=== PATIENT | female | born 1970 | race Caucasian/White ===

== ENCOUNTER 2018-10-05 14:22 | Emergency (ER) | payer OTHER, SELFPAY ==
[~2018-10-05] VITALS: Ht 152.4 cm; Wt 60.0 kg
[2018-10-05 14:22] VITALS: BP 126/56
[2018-10-05] MEDS ORDERED: ALLE180T33 PO (14:44)
[2018-10-05 17:00] LABS: BASO # 0.1 10^3/uL (0.0-0.2); BASO % 0.6 % (0.0-1.0); EOS # 0.3 10^3/uL (0.0-0.50); EOS % 2.5 % (0.0-3.0); HEMOGLOBIN 15.1 g/dl (12.0-15.5); LYMPH # 3.6 10^3/uL (1.5-4.5); LYMPH % 36.1 % (24.0-44.0); MEAN CORPUSCULAR HEMOGLOBIN 33.3 pg (27.0-33.0); MEAN CORPUSCULAR HGB CONC 33.6 g/dl (32.0-36.5); MEAN CORPUSCULAR VOLUME 99.1 fl (80.0-96.0); MONO # 0.8 10^3/uL (0.0-0.8); MONO % 7.5 % (0.0-5.0); NEUTROPHILS # 5.3 10^3/uL (1.8-7.7); NEUTROPHILS % 52.9 % (36.0-66.0); PLATELET COUNT, AUTOMATED 263 10^3/uL (150-450); RED BLOOD COUNT 4.54 10^6/uL (4.00-5.40); WHITE BLOOD COUNT 9.9 10^3/uL (4.0-10.0)
[2018-10-05 17:08] LABS: ALBUMIN 4.1 GM/DL (3.2-5.2); ALT/SGPT 35 U/L (12-78); BILIRUBIN,DIRECT 0.1 MG/DL (0.0-0.2); BILIRUBIN,TOTAL 0.3 MG/DL (0.2-1.0); BLOOD UREA NITROGEN 13 MG/DL (7-18); CALCIUM LEVEL 9.5 MG/DL (8.5-10.1); CARBON DIOXIDE LEVEL 30 MEQ/L (21-32); CHLORIDE LEVEL 108 MEQ/L (98-107); CREATININE FOR GFR 0.82 MG/DL (0.55-1.30); GLOMERULAR FILTRATION RATE > 60.0 (>58); GLUCOSE, FASTING 80 MG/DL (70-100); LIPASE 115 U/L (73-393); SODIUM LEVEL 144 MEQ/L (136-145); TOTAL PROTEIN 7.3 GM/DL (6.4-8.2)
== END 2018-10-05 18:00 | disposition home or self-care (01) ==
LOC: M ED 14:22
DX: M94.0 Chondrocostal junction syndrome [Tietze] (principal); B34.9 Viral infection, unspecified; K21.9 Gastro-esophageal reflux disease without esophagitis; J45.909 Unspecified asthma, uncomplicated; F17.200 Nicotine dependence, unspecified, uncomplicated; Z91.041 Radiographic dye allergy status; Z88.0 Allergy status to penicillin; Z88.8 Allergy status to other drugs, medicaments and biological substances; Z88.3 Allergy status to other anti-infective agents; Z79.899 Other long term (current) drug therapy

== ENCOUNTER → 2019-06-07 | Outpatient (CLI) | payer SELFPAY ==
[~2019-06-07] MED LIST: ALLE180T33 PO
== END ==
LOC: M LABSMTC 11:59
PROVIDERS: ATTEND Family Medicine
DX: Z11.59 Encounter for screening for other viral diseases (principal); Z20.89 Contact with and (suspected) exposure to other communicable diseases

== ENCOUNTER 2019-07-12 12:21 | Inpatient (IN) | payer SELFPAY ==
[~2019-07-12] VITALS: Ht 152.4 cm; Wt 62.3 kg
--- NOTE | 2019-07-12 13:32 | REP ---
CT brain without contrast: History: Altered mental status. History of shunt. Comparison CT study of the brain is from May 20, 2007. Findings: Preliminary digital financial consultant radiograph and CT images demonstrate a right-sided ventriculostomy catheter in place. Its internal tip is is seen in the frontal horn of the right lateral ventricle. No other bony calvarial defect is seen. Visualized paranasal sinuses are clear. The lateral, third, fourth ventricles are normal in size and position unchanged from the CT study done in 2007. There is no evidence of hydrocephalous. No extra-axial fluid collection or intracranial hemorrhage is seen. No mass, infarction, or midline shift is seen. Impression: Right-sided ventriculostomy catheter in the frontal horn of the right lateral ventricle. No evidence of hydrocephalous. Otherwise negative noncontrast head CT. Electronically Signed by Oliver Adams MD 07/12/2019 01:24 P
[2019-07-12 13:33] LABS: AMPHETAMINES LEVEL URINE NEGATIVE (NEGATIVE); BARBITURATES URINE NEGATIVE (NEGATIVE); BENZODIAZEPINES URINE NEGATIVE (NEGATIVE); CANNABINOIDS URINE NEGATIVE (NEGATIVE); COCAINE METABOLITE URINE NEGATIVE (NEGATIVE); METHADONE URINE NEGATIVE (NEGATIVE); OPIATES URINE NEGATIVE (NEGATIVE); PHENCYCLIDINE URINE NEGATIVE (NEGATIVE)
[2019-07-12 13:45] LABS: ACETAMINOPHEN LEVEL < 2.0 UG/ML (10.0-30.0); ALBUMIN 4.3 GM/DL (3.2-5.2); ALT/SGPT 35 U/L (12-78); BILIRUBIN,DIRECT 0.1 MG/DL (0.0-0.2); BILIRUBIN,TOTAL 0.4 MG/DL (0.2-1.0); BLOOD UREA NITROGEN 11 MG/DL (7-18); CALCIUM LEVEL 8.9 MG/DL (8.5-10.1); CARBON DIOXIDE LEVEL 27 MEQ/L (21-32); CHLORIDE LEVEL 109 MEQ/L (98-107); CREATININE FOR GFR 0.73 MG/DL (0.55-1.30); ETHYL ALCOHOL (ETHANOL) < 0.003 % (0.000-0.010); GLOMERULAR FILTRATION RATE > 60.0 (>58); GLUCOSE, FASTING 98 MG/DL (70-100); POTASSIUM SERUM 4.3 MEQ/L (3.5-5.1); SALICYLATE LEVEL 2.8 MG/DL (5.0-30.0); SODIUM LEVEL 143 MEQ/L (136-145); TOTAL PROTEIN 7.6 GM/DL (6.4-8.2)
[2019-07-12] MEDS ORDERED: OLANZapine ORAL DISINTEGRATING TAB 5MG PO ONE (14:00)
[2019-07-12 14:21] LABS: HEMATOCRIT 46.7 % (36.0-47.0); HEMOGLOBIN 15.9 g/dl (12.0-15.5); MEAN CORPUSCULAR HEMOGLOBIN 32.5 pg (27.0-33.0); MEAN CORPUSCULAR VOLUME 95.5 fl (80.0-96.0); PLATELET COUNT, AUTOMATED 302 10^3/uL (150-450); RED BLOOD COUNT 4.89 10^6/uL (4.00-5.40); WHITE BLOOD COUNT 8.4 10^3/uL (4.0-10.0)
--- NOTE | 2019-07-12 14:28 | REP ---
SHUNT SERIES: Five views. HISTORY: Altered mental status. FINDINGS: A right-sided ventriculostomy shunt catheter is noted in place intracranially. Intact catheter is noted coursing over the precordial soft tissues and entering the right upper quadrant of the abdomen. There is some mineral deposition around the catheter in the subclavicular region and in the scalp adjacent to the reservoir. The catheter itself does not appear interrupted or fracture. IMPRESSION: Right ventriculoperitoneal shunt catheter appears intact. Electronically Signed by Oliver Adams MD 07/12/2019 04:16 P
[2019-07-12] MEDS ORDERED: MOM 30ML SUSPENSION UDC PO PRN (17:45)
[2019-07-12] MEDS ORDERED: MAALOX 30 ML SUSP *UDC PO PRN (17:45)
[2019-07-12 20:37] VITALS: BP 111/56
[2019-07-13 06:00] VITALS: BP 108/63
--- NOTE | 2019-07-13 09:12 | MHHPEPDOC ---
[facility] History & Physical History and Physical DATE OF ADMISSION: July 12, 2019 at 17:35 New Patient Racheal Shoemaker MRN: N/A Date of : N/A Date of Service: 07/13/2019 Chief Complaint "I got really confused." History of Present Illness The patient a 49-year-old woman with a history of psychosis presents reporting increasing bizarre thoughts and depression with suicidal thoughts. She had become increasingly more depressed and suicidal and was brought in after becoming more psychotic. She had been previously admitted in 2007, place on antipsychotic, but stopped this and had been in her normal state of health until several days prior. She reports she began to feel like she was outside her body and having unusual behavior. CT scan in the ER demonstrate no signs of neurological cause as she has a shunt in her brain from 30 years ago. The patient reports that she became increasingly more depressed and suicidal, but has no auditory hallucinations. Review Of Systems Depression: As above with loss of interest, fatigue. Anxiety: Psychosis-related anxiety. Berta: The patient denies any episodes of euphoria/dysphoria associated with decreased need for sleep, hedonism, talkatively or impulsivity lasting longer than 5 days. Psychotic: As above. Trauma: The patient denies any traumatic events associated with nightmares or intrusive thoughts. Borderline: Not screened. Past Psychiatric History Last admitted in 2007 for psychosis. No history of suicide attempts. Previously placed on an unknown antipsychotic. Allergies Please see below. Family Psychiatric History Has a history of bipolar in the family. Social History The patient was born in [place], normal childhood, no abuse. Reports that she has several children who are adults. She has been in a fairly steady state of relationships. No known legal or history. Substance Abuse History Negative toxicology. Medical History Has a history of a right brain shunt. Mental Status Examination General: Well dressed with good hygiene Speech: Spontaneous and fluid Thought processes: Linear and logical MSK: Smooth and coordinated gait, no signs of tremors or involuntary orofacial movements Thought content: Paranoid. Abstract reasoning, and computation: Impaired. Description of associations: Impaired. Description of abnormal or psychotic thoughts: Denies any suicidal or homicidal ideation. Denies any auditory or visual hallucinations. Does not appear to be responding to internal stimuli. Does not appear to be endorsing any bizarre or paranoid ideation. Judgment: fair Insight: fair Orientation: Alert and orientated 3 Cognition: Grossly normal Recent and remote memory: Intact Attention span and concentration: Intact Fund of knowledge: Adequate Mood: "okay" Affect: Somewhat with a constricted range. Diagnoses Unspecified depressive disorder. 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 Unspecified psychotic disorder. As above. Assessment and Plan Unspecified depressive/psychotic : We will attempt to try sertraline 25 mg daily, could be MDD with psychotic features as would be consistent with patient's delusional state and significant mood symptoms. The risks, benefits as well as common side effects as well as alternative treatments (including non-treatment) were discussed with the patient both in general and for their particular case. The patient selected this option out of a range. Disposition Patient will need to be retained as she is still quite depressed and dilutional at times. Problem List 1. Altered thoughts. 2. Risk for suicide. Initial Treatment Plan 1. Patient was admitted on a legal status. 2. Complete history was obtained. 3. With patients permission, family will be contacted and database will be expanded. 4. Patients medication regimen will be reviewed and changed accordingly. 5. Patient will be provided with protected environment. 6. Patient will be treated with individual, group, and milieu therapies. 7. Patient will receive supportive psych-education. 8. Discharge planning will commence immediately. 9. Outpatient follow-up treatment will be strongly recommended. 10. The initial treatment plan will focus initially on: Estimated Length Of Stay 4 days. Time Spent 70 minutes with greater than 50% of time spent on counseling/coordination of care. Tuesday Vital Signs Vital Signs Date Time Temp Pulse Resp B/P (MAP) Pulse Ox O2 Delivery O2 Flow Rate FiO2 07/13/19 06:00 97.2 70 16 108/63 (78) 97 Room Air Laboratory Data 24H Labs Laboratory Tests 2 07/12/19 12:55: Nucleated Red Blood Cells % (auto) 0.0, Anion Gap 7L, Glomerular Filtration Rate > 60.0, Calcium Level 8.9, Total Bilirubin 0.4, Direct Bilirubin 0.1, Aspartate Amino Transf (AST/SGOT) 16, Alanine Aminotransferase (ALT/SGPT) 35, Alkaline Phosphatase 57, Total Protein 7.6, Albumin 4.3, Albumin/Globulin Ratio 1.3, Thyroid Stimulating Hormone (TSH) 2.700, Salicylates Level 2.8L, Urine Opiates Screen NEGATIVE, Urine Methadone Screen NEGATIVE, Acetaminophen Level < 2.0L, Urine Barbiturates Screen NEGATIVE, Urine Phencyclidine Screen NEGATIVE, Urine Amphetamines Screen NEGATIVE, Urine Benzodiazepines Screen NEGATIVE, Urine Cocaine Metabolite Screen NEGATIVE, Urine Cannabinoids Screen NEGATIVE, Ethyl Alcohol Level < 0.003 CBC/BMP Laboratory Tests 07/12/19 12:55 Medications No Active Prescriptions or Reported Meds Allergies Coded Allergies: metronidazole (Verified Allergy, Severe, tongue swelling, throat tightness, 10/05/18) Sulfa (Sulfonamide Antibiotics) (Verified Allergy, Intermediate, hives, 10/05/18) Contrast Media (Verified Allergy, Unknown, 05/21/07) Penicillins (Verified Allergy, Unknown, 10/05/18) metoclopramide (Verified Allergy, Unknown, 10/05/18) prochlorperazine (Verified Allergy, Unknown, 10/05/18) BASILIO YUN DO July 13, 2019 09:12
[2019-07-13] MEDS ORDERED: SERTRALINE HCL 25 MG TABLET PO ONE (11:30)
[2019-07-13] MEDS: NICOTINE 21MG/24HR 1 EA TRANSDERMAL TD SCH (12:20)
--- NOTE | 2019-07-13 12:44 | HPEPDOC ---
General Date of Admission July 12, 2019 at 17:35 Date of Service: July 13, 2019 Chief Complaint The patient is a 49-year-old female admitted with a reason for visit of Unspecified Psychotic Disorder. Source: Patient Exam Limitations: No limitations Timing/Duration: Other (unknown) Severity: Other (, not applicable) Associated Symptoms: Other (not applicable) History of Present Illness 49 years old female with past medical history of psych problems, history of hydrocephalus resident in ED with chief complaints of generalized not feeling well. Delusional feels like she has even less. Inside her and as per patient hasn't happened in the past but is overwhelming her and she needs help. Patient is not suicidal, homicidal and does not offer any medical complaints Home Medications No Active Prescriptions or Reported Meds Allergies Coded Allergies: metronidazole (Verified Allergy, Severe, tongue swelling, throat tightnes s, 10/05/18) Sulfa (Sulfonamide Antibiotics) (Verified Allergy, Intermediate, hives, 10/05/18) Contrast Media (Verified Allergy, Unknown, 05/21/07) Penicillins (Verified Allergy, Unknown, 10/05/18) metoclopramide (Verified Allergy, Unknown, 10/05/18) prochlorperazine (Verified Allergy, Unknown, 10/05/18) Past Medical History Medical History Hydrocephalus Surgical History Tubal ligation, laparotomy and shunt for hydrocephalus Family History Family history reviewed. No history of diabetes or cancer Social History * Smoker: Denies Alcohol: Denies Drugs: denies A-FIB/CHADSVASC A-FIB History Current/History of A-Fib/PAF?: No Review of Systems Constitutional: Denies: Chills, Fever, Malaise, Night Sweats, Weakness, Fatigue, Weight Loss, Lethargy, Other Eyes: Denies: Pain, Vision change, Conjunctivae inflammation, Eyelid inflammation, Redness, Other ENT: Denies: Head Aches, Ear Pain, Dysphagia, Sinus Congestion, Post Nasal Drip, Sore Throat, Epistaxis, Other Symptoms Skin: Denies: Rash, Lesions, Jaundice, Bruising, Itching, Dry, Breakdown, Nail Changes, Other Pulmonary: Denies: Dyspnea, Cough, Pleuritic Chest Pain, Other Symptoms Cardiovascular: Denies: Chest Pain, Palpitations, Orthopnea, Paroxysmal Noc. Dyspnea, Edema, Lt Headedness, Other Symptoms Gastrointestinal: Denies: Nausea, Vomiting, Abdominal Pain, Diarrhea, Constipation, Melena, Hematochezia, Other Symptoms Genitourinary: Denies: Dysuria, Frequency, Incontinence, Hematuria, Retention, Other Symptoms Hematologic: Denies: Bruising, Bleeding Excessively, Petecchia, Purpura, Enlarged Lymph Nodes, Other Hematologic Endocrine: Denies: Polydipsia, Polyphagia, Polyuria, Heat Intolerance, Cold Intolerance, Other Endocrine Sx Musculoskeletal: Denies: Neck Pain, Back Pain, Shoulder Pain, Arm Pain, Hand Pain, Leg Pain, Foot Pain, Joint Pain, Muscle Pain, Spasms, Other Symptoms Neurological: Denies: Weakness, Numbness, Incoordination, Change in speech, Confusion, Seizures, Other Symptoms Psych: Reports: Other Psych (. Delusional) Physical Examination General Exam: Positive: Alert, Cooperative Eye Exam: Positive: PERRLA, Conjunctiva & lids normal ENT Exam: Positive: Atraumatic Neck Exam: Positive: Supple Chest Exam: Positive: Clear to auscultation, Normal air movement Heart Exam: Positive: Rate Normal, Normal S1, Normal S2 Abdomen Exam: Positive: Normal bowel sounds, Soft Extremity Exam: Positive: Normal pulses Skin Exam: Positive: Nl turgor and temperature Neuro Exam: Positive: Strength at 5/5 X4 ext, Sensation Intact, Cranial Nerves 3-12 NL Psych Exam: Positive: Mental status NL, Mood NL Vital Signs Vital Signs Date Time Temp Pulse Resp B/P (MAP) Pulse Ox O2 Delivery O2 Flow Rate FiO2 07/13/19 06:00 97.2 70 16 108/63 (78) 97 Room Air Laboratory Data Labs 24H Laboratory Tests 2 07/12/19 12:55: Nucleated Red Blood Cells % (auto) 0.0, Anion Gap 7L, Glomerular Filtration Rate > 60.0, Calcium Level 8.9, Total Bilirubin 0.4, Direct Bilirubin 0.1, Aspartate Amino Transf (AST/SGOT) 16, Alanine Aminotransferase (ALT/SGPT) 35, Alkaline Phosphatase 57, Total Protein 7.6, Albumin 4.3, Albumin/Globulin Ratio 1.3, Thyroid Stimulating Hormone (TSH) 2.700, Salicylates Level 2.8L, Urine Opiates Screen NEGATIVE, Urine Methadone Screen NEGATIVE, Acetaminophen Level < 2.0L, Urine Barbiturates Screen NEGATIVE, Urine Phencyclidine Screen NEGATIVE, Urine Amphetamines Screen NEGATIVE, Urine Benzodiazepines Screen NEGATIVE, Urine Cocai ne Metabolite Screen NEGATIVE, Urine Cannabinoids Screen NEGATIVE, Ethyl Alcohol Level < 0.003 CBC/BMP Laboratory Tests 07/12/19 12:55 Problems (1) Psychosis Status: Chronic Problem Text: Patient admitted to inpatient mental health unit for further care Individual and group counseling, as per psychiatry Pharmacological intervention as per psychiatry No active medical conditions noted at the present time , No further workup is indicated at this time Please call as needed (2) Hydrocephalus Status: Acute Problem Text: Stable Continue home meds Plan / VTE VTE Prophylaxis Ordered?: No VTE Exclusion Mechanical Proph: Low Risk for VTE VTE Exclusion Pharmacological: At Low Risk for VTE SARABJIT SYLVESTER MD July 13, 2019 12:44
[2019-07-13 16:02] VITALS: BP 134/63
[2019-07-14 07:10] VITALS: BP 130/75
[2019-07-14] MEDS: NICOTINE 21MG/24HR 1 EA TRANSDERMAL TD SCH (08:33)
[2019-07-14] MEDS: SERTRALINE HCL 25 MG TABLET PO SCH (08:33)
[2019-07-14 16:13] VITALS: BP 111/74
[2019-07-14] MEDS: traZODone 50 MG TAB PO PRN (21:24)
[2019-07-15 06:25] VITALS: BP 103/52
[2019-07-15] MEDS: ACETAMINOPHEN TAB 650MG DOSE (2X325MG) PO PRN ×2 (06:41→20:44)
[2019-07-15] MEDS: NICOTINE 21MG/24HR 1 EA TRANSDERMAL TD SCH (08:26)
[2019-07-15] MEDS: SERTRALINE HCL 25 MG TABLET PO SCH (08:26)
[2019-07-15] MEDS: NICOTINE 14 MG/24 HR TRANSDERMAL TD SCH (09:18)
--- NOTE | 2019-07-15 09:41 | MHIPN ---
DATE OF SERVICE: 07/14/2019 The patient today tells me "I'm doing better." She says that she does feel that she does feel more depressed as the day wears on and says she is wondering if medication is working or not. She states that did not sleep good. She was not aware that she has trazodone available and she can request but advised her to ask for trazodone tonight. The patient is alert, oriented times three. Eye contact is fairly good. There is no formal thought disorder noted. She is better but she admits she starts feeling depressed as the day goes on. Affect is appropriate to mood. She is not suicidal or homicidal. I did not elicit any delusions in this patient. Concentration is fair. Memory intact. Insight and judgment is fair. DIAGNOSIS: Unspecified depressive disorder. Unspecified psychotic disorder. Rule out major depressive disorder with psychotic symptoms. TREATMENT PLAN: At this point, we will continue to monitor the patient for continued elevation and stabilization of her mood and resolution of psychotic symptoms, and we will continue to titrate her medications as indicated.
[2019-07-15 16:06] VITALS: BP 104/66
[2019-07-15] MEDS: traZODone 50 MG TAB PO PRN (21:47)
[2019-07-15] MEDS: IBUPROFEN 600 MG TAB PO PRN (22:09)
[2019-07-16 06:37] VITALS: BP 115/71
[2019-07-16] MEDS: SERTRALINE HCL 25 MG TABLET PO SCH (09:17)
[2019-07-16] MEDS: NICOTINE 14 MG/24 HR TRANSDERMAL TD SCH (09:18)
[2019-07-16] MEDS: IBUPROFEN 600 MG TAB PO PRN (09:19)
--- NOTE | 2019-07-16 11:48 | MHDSPDOC ---
[facility] Discharge Summary Discharge Summary DATE OF ADMISSION: July 12, 2019 at 17:35 DATE OF DISCHARGE: 07/16/2019 Discharge Racheal Shoemaker MRN: N/A Date of : N/A Date of Service: 07/16/2019 Diagnoses Unspecified depressive disorder. 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 Unspecified psychotic disorder. History of Present Illness The patient a 49-year-old woman with a history of psychosis presents reporting increasing bizarre thoughts and depression with suicidal thoughts. She had become increasingly more depressed and suicidal and was brought in after becoming more psychotic. She had been previously admitted in 2007, place on antipsychotic, but stopped this and had been in her normal state of health until several days prior. She reports she began to feel like she was outside her body and having unusual behavior. CT scan in the ER demonstrate no signs of neurological cause as she has a shunt in her brain from 30 years ago. The patient reports that she became increasingly more depressed and suicidal, but has no auditory hallucinations. Consultants Involved Hospitalist/PCP screening Treatment and Progress On The Unit The patient was admitted to the inpatient mental health unit. She was started on a low-dose Zoloft as there was a suspicion that she might have a psychotic depression. She did well with the Zoloft, increasing her mood and her delusions and paranoia rapidly resolved. She had no major behavioral problems complied with treatment and suicidal ideation became scarce, no longer apparent over the weekend. She was discharged without incident at her request. Discharge Assessment 49 -year-old woman with likely major depression with psychotic features, presents and is treated with a low dose of an appropriate antidepressant making great improvements returning to a normal mental status exam. The patient at the time of discharge did not meet criteria for involuntary admission/extension due to having a normal mental status exam, fair insight into the situation, They are engaged in the discharge process, as well as being friendly and amenable in behavioral control and havent been engaging in any observed concerning behavior or ideation recently. They decline voluntary extension/admission at this time and must be discharged in good rayray, as Im unable to make a case for holding the patient against their will. They may have historical risk factors of admissions and other interactions with psychiatry however, those are not modifiable from a clinical perspective. The patient will need to be discharged in good rayray. Mental Status Examination General: Well dressed with good hygiene Speech: Spontaneous and fluid Thought processes: Linear and logical MSK: Smooth and coordinated gait, no signs of tremors or involuntary orofacial movements Thought content: Future orientated Abstract reasoning, and computation: Intact Description of associations: Intact Description of abnormal or psychotic thoughts: Denies any suicidal or homicidal ideation. Denies any auditory or visual hallucinations. Does not appear to be responding to internal stimuli. Does not appear to be endorsing any bizarre or paranoid ideation. Judgment: fair Insight: fair Orientation: Alert and orientated 3 Cognition: Grossly normal Recent and remote memory: Intact Attention span and concentration: Intact Fund of knowledge: Adequate Mood: "okay" Affect: Euthymic with a full range Follow Up The social work team worked during the predischarge meeting in order to evaluate for further issues of lethality address them fully before discharge. They worked on safety planning with the patient's family members in order to ensure that the patient will have a safe and effective discharge. Time Spent The amount of time spent in the coordination of care for this patient was ap proximately 45 minutes. Tuesday Vital Signs/I&Os Vital Signs Date Time Temp Pulse Resp B/P (MAP) Pulse Ox O2 Delivery O2 Flow Rate FiO2 07/16/19 06:37 99.0 83 12 115/71 (86) Room Air 07/14/19 07:10 98 Medications Scheduled Nicotine (Nicotine Patch) 14 Mg Patch.td24, 1 PATCH TD DAILY for tobacco for 30 Days, #30 Sertraline HCl (Sertraline HCl) 25 Mg Tablet, 25 MG PO DAILY for mood for 7 Days, #7 Scheduled PRN Trazodone HCl (Trazodone HCl) 50 Mg Tablet, 50 MG PO QHSP PRN for INSOMNIA for 7 Days, #7 Allergies Coded Allergies: metronidazole (Verified Allergy, Severe, tongue swelling, throat tightness, 10/05/18) Sulfa (Sulfonamide Antibiotics) (Verified Allergy, Intermediate, hives, 10/05/18) Contrast Media (Verified Allergy, Unknown, 05/21/07) Penicillins (Verified Allergy, Unknown, 10/05/18) metoclopramide (Verified Allergy, Unknown, 10/05/18) prochlorperazine (Verified Allergy, Unknown, 10/05/18) BASILIO YUN DO July 16, 2019 11:48
[2019-07-16] MEDS ORDERED: NICO14PA TD (11:49)
[2019-07-16] MEDS ORDERED: TRAZ-252 PO (11:49)
[2019-07-16] MEDS ORDERED: SERT25TA21 PO (11:49)
[2019-07-16 15:39] VITALS: BP 126/55
--- NOTE | 2019-07-16 22:37 | MHIPN ---
DATE: 07/15/2019 The patient today states, "I'm doing much better." She says she has a more positive outlook. She says that she slept better than she had ever slept in 2 months now. MENTAL STATUS EXAM: The patient is alert, oriented times three. Eye contact is very good. She is verbally spontaneous and no formal thought disorder noted. Her mood is "much better." Affect appropriate to her mood. I did not elicit any psychotic symptoms. She denies any suicidal or homicidal ideations. Concentration is fair. Memory intact. Insight and judgment fair. DIAGNOSIS: Bipolar disorder with psychotic symptoms. TREATMENT PLAN: We will continue to monitor the patient for resolution of psychotic symptoms and stabilization of her mood, and for resolution of her suicidal ideation. We will continue to titrate her medications as indicated.
== END 2019-07-16 16:50 | disposition home or self-care (01) | DRG 751 ==
LOC: M ED 12:21 → M ED INP 17:35 → M PSY 20:15
PROVIDERS: ADMIT Psychiatry & Neurology Addiction Medicine; ATTEND Psychiatry & Neurology Addiction Medicine
DX: F32.3 Major depressive disorder, single episode, severe with psychotic features (principal); R45.851 Suicidal ideations; Z98.2 Presence of cerebrospinal fluid drainage device

== ENCOUNTER 2019-11-26 07:58 | Emergency (ER) | payer MEDICAID, OTHER ==
[~2019-11-26] VITALS: Ht 152.4 cm; Wt 52.7 kg
[~2019-11-26 07:58] MED LIST changes: +NICO14PA TD; +SERT25TA21 PO; +TRAZ-252 PO
[2019-11-26] MEDS ORDERED: ALBU8.5H (08:09)
[2019-11-26 09:37] VITALS: BP 126/79
== END 2019-11-26 09:39 | disposition home or self-care (01) ==
LOC: M ED 07:58
DX: F33.9 Major depressive disorder, recurrent, unspecified (principal); F10.10 Alcohol abuse, uncomplicated; Z88.0 Allergy status to penicillin; Z88.2 Allergy status to sulfonamides; Z88.8 Allergy status to other drugs, medicaments and biological substances; Z79.899 Other long term (current) drug therapy

== ENCOUNTER 2020-01-03 14:02 | Emergency (ER) | payer OTHER ==
[~2020-01-03] VITALS: Ht 152.4 cm; Wt 50.5 kg
[~2020-01-03 14:02] MED LIST changes: +ALBU8.5H
[2020-01-03 14:03] VITALS: BP 152/92
--- NOTE | 2020-01-03 14:15 | ED PDOC ---
Post-Departure Follow-Up went to see patient and notified patient left because would not be allow ed back Lynette Heller MD Jan 03, 2020 14:15
== END 2020-01-03 14:14 | disposition left against medical advice (07) ==
LOC: M ED 14:02
DX: Z53.21 Procedure and treatment not carried out due to patient leaving prior to being seen by health care provider (principal)

== ENCOUNTER 2020-01-08 12:29 | Inpatient (IN) | payer OTHER ==
[~2020-01-08] VITALS: Ht 152.4 cm; Wt 51.4 kg
[2020-01-08 13:40] LABS: HEMATOCRIT 41.3 % (36.0-47.0); HEMOGLOBIN 13.5 g/dl (12.0-15.5); MEAN CORPUSCULAR HEMOGLOBIN 30.4 pg (27.0-33.0); MEAN CORPUSCULAR HGB CONC 32.7 g/dl (32.0-36.5); PLATELET COUNT, AUTOMATED 276 10^3/uL (150-450); RED BLOOD COUNT 4.44 10^6/uL (4.00-5.40); WHITE BLOOD COUNT 8.1 10^3/uL (4.0-10.0)
[2020-01-08 14:08] LABS: AMPHETAMINES LEVEL URINE NEGATIVE (NEGATIVE); BARBITURATES URINE NEGATIVE (NEGATIVE); BENZODIAZEPINES URINE NEGATIVE (NEGATIVE); CANNABINOIDS URINE NEGATIVE (NEGATIVE); COCAINE METABOLITE URINE NEGATIVE (NEGATIVE); METHADONE URINE NEGATIVE (NEGATIVE); OPIATES URINE NEGATIVE (NEGATIVE); PHENCYCLIDINE URINE NEGATIVE (NEGATIVE)
[2020-01-08 14:13] LABS: HCG, SERUM QUALITATIVE NEGATIVE (NEGATIVE)
[2020-01-08 14:21] LABS: ACETAMINOPHEN LEVEL < 2.0 UG/ML (10.0-30.0); ALBUMIN 3.6 GM/DL (3.2-5.2); ALT/SGPT 15 U/L (12-78); BILIRUBIN,DIRECT 0.2 MG/DL (0.0-0.2); BILIRUBIN,TOTAL 0.5 MG/DL (0.2-1.0); BLOOD UREA NITROGEN 7 MG/DL (7-18); CALCIUM LEVEL 8.9 MG/DL (8.5-10.1); CARBON DIOXIDE LEVEL 27 MEQ/L (21-32); CHLORIDE LEVEL 111 MEQ/L (98-107); CREATININE FOR GFR 0.68 MG/DL (0.55-1.30); ETHYL ALCOHOL (ETHANOL) < 0.003 % (0.000-0.010); GLOMERULAR FILTRATION RATE > 60.0 (>58); GLUCOSE, FASTING 87 MG/DL (70-100); POTASSIUM SERUM 3.8 MEQ/L (3.5-5.1); SALICYLATE LEVEL 3.4 MG/DL (5.0-30.0); SODIUM LEVEL 145 MEQ/L (136-145)
--- NOTE | 2020-01-08 16:49 | ECGEPIP ---
[facility] - ED Test Date: 2020-01-08 Pat Name: CAREN CURRY Department: Room: - Gender: Female Manager Clinical Informatics: AAKASH : 1970 Requested By: ABBE Lehman Order Number: [id number] Reading MD: David Girard Measurements Intervals [place] Rate: 60 P: 73 WI: 193 QRS: 54 QRSD: 85 T: 79 QT: 395 QTc: 395 Interpretive Statements SINUS RHYTHM Comparison tracing not on file Electronically Signed on 01-08-2020 16:49:09 EST by David Girard
[2020-01-08] MEDS ORDERED: MOM 30ML SUSPENSION UDC PO PRN (18:45)
[2020-01-08] MEDS ORDERED: MAALOX 30 ML SUSP *UDC PO PRN (18:45)
[2020-01-08] MEDS ORDERED: OLANZapine ORAL DISINTEGRATING TAB 5MG PO PRN (18:45)
[2020-01-08] MEDS ORDERED: IBUPROFEN 400 MG TAB PO PRN (18:45)
[2020-01-08 22:27] VITALS: BP 133/64
[2020-01-09 07:21] VITALS: BP 140/62
[2020-01-09] MEDS: OLANZapine 5 MG TAB PO SCH ×2 (09:36→22:23)
--- NOTE | 2020-01-09 16:23 | MHHPEPDOC ---
General Date Of Admission: Jan 08, 2020 Legal Status: 9.39 Chief Complaint Patient is a 49 year old , Unemployed, Domiciled, Female who was brought to [facility] on a 9.41 for Delusional, Bizarre and Psychotic Behaviors. History of Present Illness HISTORY OF THE PRESENT ILLNESS: PER ED REPORT: Patient is a 49 year old , Unemployed, Domiciled, Female who was brought to [facility] on a 9.41 for Delusional, Bizarre and Psychotic Behaviors. Patient was brought in by [place] [employer] on a 9.41 initiated by her Spouse. He reports that patient has been refusing to eat or drink due to believe that Holy Spirit is taking over her body. Patient has had a prior admission to this facility in June 2019 and April 2007 for similar presentations. Patient has a history fo psychosis and non-compliance of medications. Patient stopped taking her medications about one month ago and she decompensated within the month. Her reports that she has been reporting evil spirits and that the Holy Spirit is after the evil spirits. These spirits are forcing her to not eat, walk, drink and apparently forced her to defecate on herself prior to arrival. Patient denies command auditory hallucinations and she appears to be religiously preoccupied during the interaction in the ED. I attempted to meet with the patient and she stated that she could not speak with me because "the Spirits were in her body and would not allow her to do so." The psychiatric evaluation will be pieced together from prior visits and collateral information. Psychiatric Review of Systems Depression (2 or more weeks): depressed mood, difficulty concentrating, suicidal thoughts, other (patient stopped taking Zoloft and decompensated, but she was admitted to this facility for similar symptoms and was discharged with Zoloft) Berta (4 or more days of): denies Psychosis: auditory hallucination, delusions, paranoia, disorganization PTSD: other Anxiety: situational anxiety Past Psychiatric History Previous Psychiatric Diagnosis: Unspecified Psychosis, Unspecified Depressive, there was a thought that in the past this could be Major Depressive Disorder with psychotic features Previous Psychiatric Admissions: Two other psychiatric admissions to this [facility] 05/20/07-06/05/07 and 07/12/19-07/16/19 Suicide Attempts: Unknown at this time Psychiatric Follow-up: None Psychiatric medications: Zoloft 25 mg Past Medical History Medical Problems Right Brain Shunt Hydrocephalus Head Injury: No Seizures: Yes (Absent seizures due to medications - Prochlorperazine) Hospitalizations: Yes Surgeries: Yes Family Medical/Psychiatric HX Medical Problems Brother with Bipolar Disorder Psychiatric Disorders: Yes Addiction: Yes Suicide Attemps/Completions: No Addiction History nicotine Social History Childhood: Born in [place], grew up with both parents, dad when she was 14, she is the youngest of 7 children. Abuse/Trauma: Denies Current Living Situation: Lives with spouse, with him for 22 years, 12 years, living with grown stepdaughter, two cars Education: Graduated High School, then [employer] for independent studies as a Associate's Degree Employment: Unemployed Social Support: Family Legal: No Marital: 12 years, but with spouse for 22 years, 1 son and 2 grandchildren Mental Status Examination General Appearance: unkempt, ds/not appear stated age (appears older), hospital scubs/clothing Build: thin Demeanor: mistrustful, withdrawn, preoccupied Eye Contact: avoidant Activity: slowed Behavior: withdrawn Speech: slow, low in volume Mood: depressed, anxious Mood "I can't speak to you right now, the Spirits are inside me." Affect: constricted Thought Process: loose Thought Content (Delusions): paranoia, delusions Thought Content (Other): preoccupied, guarded Thought Content (Aggressive): other (unable to ascertain at this time) Perception (Hallucinations): auditory Perception (Other): other (unable to assess) Cognition (Impairment of): unable to assess Cognition(Intelligence Est.): other (unable to assess) Oriented: Awake, Alert Insight: poor Judgment: Poor Psychosis: Associations, Psychotic Perceptions Diagnoses Unspecified Schizophrenia and Other Psychotic Disorders r/o Major Depressive Disorder with Psychotic Features r/o Catatonia A-FIB/CHADSVASC A-FIB History Current/History of A-Fib/PAF?: No Assessment We will start patient on Zyprexa which she has had in the past. I believe that her psychosis is the most immediate issue. When patient is able to participate in the interview, we can determine if there are any needs we need to additionally meet. I will restart patient's Zoloft if this is Major Depression with Psychotic Features, the addition of her antidepressant may be helpful. Initial Treatment Plan 1. Patient was admitted on a [9.39] status. 2. Complete history was obtained. 3. With patients permission, family will be contacted and database will be expanded. 4. Patients medication regimen will be reviewed and changed accordingly. 5. Patient will be provided with protected environment. 6. Patient will be treated with individual, group, and milieu therapies. 7. Patient will receive supportive psych-education. 8. Discharge planning will commence immediately. 9. Outpatient follow-up treatment will be strongly recommended. 10. The initial treatment plan will focus initially on: * Depression. * Psychosis * Altered thoughts * Risk for suicide. ESTIMATED LENGTH OF STAY: 5-7 DAYS. TIME SPENT COUNSELING AND COORDINATING INITIAL CARE: 50 minutes. Vital Signs Vital Signs Date Time Temp Pulse Resp B/P (MAP) Pulse Ox O2 Delivery O2 Flow Rate FiO2 01/09/20 07:21 97.8 87 18 140/62 (88) 01/08/20 22:27 96 Room Air Laboratory Data 24H Labs Laboratory Tests 2 01/08/20 16:31: Coronavirus (COVID-19)(PCR) NEGATIVE Medications No Active Prescriptions or Reported Meds Allergies Coded Allergies: metronidazole (Verified Allergy, Severe, tongue swelling, throat tightness, 10/05/18) Sulfa (Sulfonamide Antibiotics) (Verified Allergy, Intermediate, hives, 10/05/18) Contrast Media (Verified Allergy, Unknown, 05/21/07) Penicillins (Verified Allergy, Unknown, 10/05/18) metoclopramide (Verified Allergy, Unknown, 10/05/18) prochlorperazine (Verified Allergy, Unknown, 10/05/18) EVONNE GARDUNO MERCHANDISING MANAGER Jan 09, 2020 16:23
[2020-01-09 16:47] VITALS: BP 111/56
[2020-01-09] MEDS: traZODone 50 MG TAB PO PRN (22:23)
[2020-01-10 06:49] VITALS: BP 121/54
[2020-01-10] MEDS ORDERED: LORazepam 0.5 MG TAB PO SCH (09:00)
--- NOTE | 2020-01-10 09:19 | HPEPDOC ---
[facility] Medical History & Physical Date of Admission Jan 08, 2020 Date of Service: Jan 09, 2020 History and Physical CHIEF COMPLAINT: Psychotic behavior HISTORY OF PRESENT ILLNESS: 49 yo female with PMHx psychosis and non-compliance with medical therapy, brought in by police for psychotic behavior. She had stopped taking her medications about one month ago. Her reported that the patient has been refusing to eat or drink due to the belief that a holy spirit was taking over her body. These spirits are forcing her to not eat, walk, drink and apparently forced her to defecate on herself prior to arrival. Patient has had a prior admissions for similar presentations. Hospitalist consulted for medical co-management. ALLERGIES: Please see below. REVIEW OF SYSTEMS: HOME MEDICATIONS: Please see below. PHYSICAL EXAMINATION: VITAL SIGNS: See below General: NAD, lying comfortably in bed HEENT: poor dentition, NC/AT, EOMI Lungs: CTA B/L Heart: +S1S2, RRR Abd: soft, NT, +BS Ext: no edema LABORATORY DATA: See below. MICROBIOLOGY: Please see below. A/P: 49 yo female admitted to [facility] for psychotic behavior. #psych - as per primary team Thank you for this consultation. Please re-consult as needed. Vital Signs Vital Signs Date Time Temp Pulse Resp B/P (MAP) Pulse Ox O2 Delivery O2 Flow Rate FiO2 01/09/20 07:21 97.8 87 18 140/62 (88) 01/08/20 22:27 96 Room Air Laboratory Data Labs 24H Laboratory Tests 2 01/08/20 13:25: Nucleated Red Blood Cells % (auto) 0.0, Anion Gap 7L, Glomerular Filtration Rate > 60.0, Calcium Level 8.9, Total Bilirubin 0.5, Direct Bilirubin 0.2, Aspartate Amino Transf (AST/SGOT) 15, Alanine Aminotransferase (ALT/SGPT) 15, Alkaline Phosphatase 59, Total Protein 6.0L, Albumin 3.6, Albumin/Globulin Ratio 1.5, Thyroid Stimulating Hormone (TSH) 1.790, Human Chorionic Gonadotropin, Qual NEGATIVE, Salicylates Level 3.4L, Urine Opiates Screen NEGATIVE, Urine Methadone Screen NEGATIVE, Acetaminophen Level < 2.0L, Urine Barbiturates Screen NEGATIVE, Urine Phencyclidine Screen NEGATIVE, Urine Amphetamines Screen NEGATIVE, Urine Benzodiazepines Screen NEGATIVE, Urine Cocaine Metabolite Screen NEGATIVE, Urine Cannabinoids Screen NEGATIVE, Ethyl Alcohol Level < 0.003 01/08/20 16:31: Coronavirus (COVID-19)(PCR) NEGATIVE CBC/BMP Laboratory Tests 01/08/20 13:25 Home Medications No Active Prescriptions or Reported Meds Allergies Coded Allergies: metronidazole (Verified Allergy, Severe, tongue swelling, throat tightness, 10/05/18) Sulfa (Sulfonamide Antibiotics) (Verified Allergy, Intermediate, hives, 10/05/18) Contrast Media (Verified Allergy, Unknown, 05/21/07) Penicillins (Verified Allergy, Unknown, 10/05/18) metoclopramide (Verified Allergy, Unknown, 10/05/18) prochlorperazine (Verified Allergy, Unknown, 10/05/18) A-FIB/CHADSVASC A-FIB History Current/History of A-Fib/PAF?: No FABIAN GREENE MD Jan 09, 2020 12:23
[2020-01-10] MEDS: OLANZapine 5 MG TAB PO SCH ×2 (10:20→21:53)
[2020-01-10] MEDS: LORazepam 0.5 MG TAB PO SCH (15:25)
--- NOTE | 2020-01-10 17:24 | MHIPNPDOC ---
[facility] Progress Note Progress Note DATE OF SERVICE: 01/10/20 HISTORY: Patient is a 49 year old , Unemployed, Domiciled, Female who was brought to [facility] on a 9.41 for Delusional, Bizarre and Psychotic Behaviors. Patient was brought in by [place] [employer] on a 9.41 initiated by her Spouse. He reports that patient has been refusing to eat or drink due to believe that Holy Spirit is taking over her body. Patient has had a prior admission to this facility in June 2019 and April 2007 for similar presentations. Patient has a history of psychosis and non-compliance of medications. Patient stopped taking her medications about one month ago and she decompensated within the month. Her reports that she has been reporting evil spirits and that the Holy Spirit is after the evil spirits. These spirits are forcing her to not eat, walk, drink and apparently forced her to defecate on herself prior to arrival. Patient denies command auditory hallucinations and she appears to be religiously preoccupied during the interaction in the ED. VITAL SIGNS: See below. NEW TEST RESULTS: CURRENT MEDICATIONS: See below. MENTAL STATUS EXAMINATION: Patient is a 49 year old , Unemployed, Domiciled, Female who was brought to [facility] on a 9.41 for Delusional, Bizarre and Psychotic Behaviors. Patient stopped eating and drinking and believes that she cannot do so because the Holy Spirit is in her body. She appears older than her stated age, she is dressed in hospital scrubs, her hygiene and grooming is poor, she has poor eye contact. She is psychomotor slowing Speech: Is spontaneous, fluid, normal rate and tone, low volume Language skills are intact Thought processes including: linear, but with loose association Thought content: denies depression and anxiety, denies SI/HI Abstract reasoning, and computation: not able to assess Description of associations: "I can't talk because the Holy Spirit is inside me" Description of abnormal or psychotic thoughts: Patient remains psychotic, believing in the Holy Spirit being inside her body, She doesn't say that she has auditory hallucinations but says that she can't talk because of the Holy Spirit Judgment: Poor Insight: Poor Orientation: alert and oriented to person and place and situation Recent and remote memory: unable to assess, patient declining to speak because of the "Holy Spirit" Attention span and concentration: poor Language: fair Fund of knowledge: average Mood: depressed Affect: flat/withdrawn DIAGNOSES: 1. Unspecified Schizophrenia and Other Psychotic Disorders 2 r/o Major Depressive Disorder with Psychotic Features 3. r/o Catatonia ASSESSMENT: Patient continues to report psychotic beliefs that she cannot speak to me because of a spirit being inside her. According to the nurses she is still reporting inability to walk. She refuses to engage in conversation and therefore I stayed in her room to observe her. Patient will answer if asked but appears quite frightened. She was withdrawn and isolative to her room when I met with her and had difficulty encouraging her to come out. She continues to say that she cannot speak with me. I have been told that patient was more conversant today and was agreeable to coming out of the room. MANAGEMENT PLAN: As this may be Catatonia, I have started patient on Ativan 0.5 mg twice daily for Ativan Challenge, she was able to eat her meals today. TIME SPENT: 25 minutes. Vital Signs Vital Signs Date Time Temp Pulse Resp B/P (MAP) Pulse Ox O2 Delivery O2 Flow Rate FiO2 01/10/20 06:49 97.8 57 16 121/54 (76) 97 Room Air Current Medications Current Medications Medications (Trade) Dose Ordered Sig/Moe Route PRN Reason Start Time Stop Time Status Last Admin Dose Admin Al Hydrox/Mg Hydrox/Simethicone (Mylanta) 30 ml Q4HP PRN PO HEARTBURN/INDIGESTION 01/08/20 18:45 Home Med (Med Rec Complete!) ASDIRECTED XX 01/08/20 15:15 01/08/20 15:15 DC Ibuprofen (Advil) 400 mg Q6HP PRN PO PAIN 01/08/20 18:45 Lorazepam (Ativan) 0.5 mg BID PO 01/10/20 09:00 01/10/20 10:21 Magnesium Hydroxide (Milk Of Magnesia) 30 ml DAILYPRN PRN PO CONSTIPATION 01/08/20 18:45 Olanzapine (ZyPREXA ZYDIS) 5 mg Q4HP PRN PO AGITATION 01/08/20 18:45 Olanzapine (ZyPREXA) 5 mg BID PO 01/09/20 09:00 01/10/20 10:20 Trazodone HCl (Desyrel) 50 mg QHSP PRN PO INSOMNIA 01/08/20 18:45 01/09/20 22:23 Allergies Coded Allergies: metronidazole (Verified Allergy, Severe, tongue swelling, throat tightness, 10/05/18) Sulfa (Sulfonamide Antibiotics) (Verified Allergy, Intermediate, hives, 10/05/18) Contrast Media (Verified Allergy, Unknown, 05/21/07) Penicillins (Verified Allergy, Unknown, 10/05/18) metoclopramide (Verified Allergy, Unknown, 10/05/18) prochlorperazine (Verified Allergy, Unknown, 10/05/18) EVONNE GARDUNO NP Jan 10, 2020 14:09
[2020-01-10 17:28] VITALS: BP 117/60
[2020-01-10] MEDS: SERTRALINE HCL 25 MG TABLET PO SCH (21:54)
[2020-01-10] MEDS: traZODone 50 MG TAB PO PRN (21:54)
[2020-01-11 06:54] VITALS: BP 108/55
[2020-01-11] MEDS: LORazepam 0.5 MG TAB PO SCH ×2 (09:20→14:56)
[2020-01-11] MEDS: haloperidoL 5 MG TAB PO SCH ×2 (09:20→20:40)
--- NOTE | 2020-01-11 14:31 | MHIPNPDOC ---
[facility] Progress Note Progress Note DATE OF SERVICE: 01/11/20 HISTORY: Patient is a 49 year old , Unemployed, Domiciled, Female who was brought to [facility] on a 9.41 for Delusional, Bizarre and Psychotic Behaviors. Patient was brought in by [place] [employer] on a 9.41 initiated by her Spouse. He reports that patient has been refusing to eat or drink due to believe that Holy Spirit is taking over her body. Patient has had a prior admission to this facility in June 2019 and April 2007 for similar presentations. Patient has a history of psychosis and non-compliance of medications. Patient stopped taking her medications about one month ago and she decompensated within the month. Her reports that she has been reporting evil spirits and that the Holy Spirit is after the evil spirits. These spirits are forcing her to not eat, walk, drink and apparently forced her to defecate on herself prior to arrival. Patient denies command auditory hallucinations and she appears to be religiously preoccupied during the interaction in the ED. VITAL SIGNS: See below. NEW TEST RESULTS: CURRENT MEDICATIONS: See below. MENTAL STATUS EXAMINATION: Patient is a 49 year old , Unemployed, Domiciled, Female who was brought to [facility] on a 9.41 for Delusional, Bizarre and Psychotic B ehaviors. Patient stopped eating and drinking and believes that she cannot do so because the Holy Spirit is in her body. She appears older than her stated age, she is dressed in hospital scrubs, she is very disheveled and her hygiene and grooming is poor, she has poor eye contact. She is psychomotor slowing Speech: Is spontaneous, impoverished low rate and tone, low volume Language skills are intact Thought processes including: linear, but with restorationism persecution Thought content: denies depression and anxiety, denies SI/HI Abstract reasoning, and computation: not able to assess Description of associations: "I can't talk because the Holy Spirit is inside me" Description of abnormal or psychotic thoughts: Patient remains psychotic, r eligiously preoccupied believing in the Holy Spirit being inside her body, She doesn't say that she has auditory hallucinations but says that she can't talk because of the Holy Spirit. She states that she knows that this is not real but is real for her Judgment: Poor Insight: Poor Orientation: alert and oriented to person and place and situation Recent and remote memory: intact Attention span and concentration: poor Language: fair Fund of knowledge: average Mood: depressed Affect: flat/withdrawn DIAGNOSES: 1. Unspecified Schizophrenia and Other Psychotic Disorders 2 r/o Major Depressive Disorder with Psychotic Features 3. r/o Catatonia ASSESSMENT: Patient continues to report psychotic beliefs that she cannot speak to me because of a spirit being inside her. Remains withdrawn and isolative to her room but has been seen in the milieu for short periods. Patient is eating and drinking but not attending groups due to her psychosis, will come out of room to get her tray and return to her room. Observed with a steady gait. MANAGEMENT PLAN: Zyprexa changed to Haldol 5 mg twice daily. TIME SPENT: 25 minutes. Vital Signs Vital Signs Date Time Temp Pulse Resp B/P (MAP) Pulse Ox O2 Delivery O2 Flow Rate FiO2 01/11/20 06:54 97.7 71 14 108/55 (72) 96 Room Air Current Medications Current Medications Medications (Trade) Dose Ordered Sig/Moe Route PRN Reason Start Time Stop Time Status Last Admin Dose Admin Al Hydrox/Mg Hydrox/Simethicone (Mylanta) 30 ml Q4HP PRN PO HEARTBURN/INDIGESTION 01/08/20 18:45 Haloperidol (Haldol) 5 mg BID PO 01/11/20 09:00 01/11/20 09:20 Home Med (Med Rec Complete!) ASDIRECTED XX 01/08/20 15:15 01/08/20 15:15 DC Ibuprofen (Advil) 400 mg Q6HP PRN PO PAIN 01/08/20 18:45 Lorazepam (Ativan) 0.5 mg BID PO 01/10/20 09:00 01/10/20 14:17 DC 01/10/20 10:21 Lorazepam (Ativan) 0.5 mg BID@0900,1500 PO 01/10/20 15:00 01/11/20 09:20 Magnesium Hydroxide (Milk Of Magnesia) 30 ml DAILYPRN PRN PO CONSTIPATION 01/08/20 18:45 Olanzapine (ZyPREXA ZYDIS) 5 mg Q4HP PRN PO AGITATION 01/08/20 18:45 Olanzapine (ZyPREXA) 5 mg BID PO 01/09/20 09:00 01/11/20 08:54 DC 01/10/20 21:53 Sertraline HCl (Zoloft) 25 mg QHS PO 01/10/20 21:00 01/10/20 21:54 Trazodone HCl (Desyrel) 50 mg QHSP PRN PO INSOMNIA 01/08/20 18:45 01/10/20 21:54 Allergies Coded Allergies: metronidazole (Verified Allergy, Severe, tongue swelling, throat tightness, 10/05/18) Sulfa (Sulfonamide Antibiotics) (Verified Allergy, Intermediate, hives, 10/05/18) Contrast Media (Verified Allergy, Unknown, 05/21/07) Penicillins (Verified Allergy, Unknown, 10/05/18) metoclopramide (Verified Allergy, Unknown, 10/05/18) prochlorperazine (Verified Allergy, Unknown, 10/05/18) EVONNE GARDUNO NP Jan 11, 2020 14:31
[2020-01-11 16:12] VITALS: BP 107/56
[2020-01-11] MEDS: SERTRALINE HCL 25 MG TABLET PO SCH (20:40)
[2020-01-12] MEDS: LORazepam 0.5 MG TAB PO SCH ×2 (09:22→15:18)
[2020-01-12] MEDS: haloperidoL 5 MG TAB PO SCH ×2 (09:22→20:13)
[2020-01-12 16:30] VITALS: BP 117/59
--- NOTE | 2020-01-12 16:53 | MHIPNPDOC ---
[facility] Progress Note Progress Note DATE OF SERVICE: 01/12/20 HISTORY: Patient is a 49 year old , Unemployed, Domiciled, Female who was brought to [facility] on a 9.41 for Delusional, Bizarre and Psychotic Behaviors. Patient was brought in by [place] [employer] on a 9.41 initiated by her Spouse. He reports that patient has been refusing to eat or drink due to believe that Holy Spirit is taking over her body. Patient has had a prior admission to this facility in June 2019 and April 2007 for similar presentations. Patient has a history of psychosis and non-compliance of medications. Patient stopped taking her medications about one month ago and she decompensated within the month. Her reports that she has been reporting evil spirits and that the Holy Spirit is after the evil spirits. These spirits are forcing her to not eat, walk, drink and apparently forced her to defecate on herself prior to arrival. Patient denies command auditory hallucinations and she appears to be religiously preoccupied during the interaction in the ED. VITAL SIGNS: See below. NEW TEST RESULTS: CURRENT MEDICATIONS: See below. MENTAL STATUS EXAMINATION: Patient is a 49 year old , Unemployed, Domiciled, Female who was brought to [facility] on a 9.41 for Delusional, Bizarre and Psychotic B ehaviors. the patient says the Holy spirit lives in her and that people don't believe her but this is true. Speech: Is spontaneous, impoverished low rate and tone, low volume Language skills are intact Thought processes including: linear, but not coherent, she is delusional Thought content: denies depression and anxiety, denies SI/HI Abstract reasoning, and computation: not able to assess Description of associations: Loose Description of abnormal or psychotic thoughts: Patient says she has a hard time walking because the scoty zarinaiti lives inisde her. She sys she can't hear Him, she can't see Him but she feels calmer when he is inside of her body. Judgment: Poor Insight: Poor Orientation: alert and oriented to person and place and situation Recent and remote memory: intact Attention span and concentration: She gets easily distracted because she is internally preoccupied. Language: fair Fund of knowledge: average Mood: sad, depressed Affect: flat/withdrawn DIAGNOSES: 1. Unspecified Schizophrenia and Other Psychotic Disorders 2 r/o Major Depressive Disorder with Psychotic Features 3. r/o Catatonia ASSESSMENT: patient continues to believe that the Holy Spirit lives inside of her , she is depressed, she walks slowly and she has remained mostly in her room, she is eating in her room. I think that changing Zyprexa to Haldol was a good move. Will continue to monitor her for spychosis. MANAGEMENT PLAN: As per genaro Plunkett psychiatry Nurse Practitioner TIME SPENT: 25 minutes. Vital Signs Vital Signs Date Time Temp Pulse Resp B/P (MAP) Pulse Ox O2 Delivery O2 Flow Rate FiO2 01/12/20 16:30 98.0 94 16 117/59 (78) 01/11/20 06:54 96 Room Air Current Medications Current Medications Medications (Trade) Dose Ordered Sig/Moe Route PRN Reason Start Time Stop Time Status Last Admin Dose Admin Al Hydrox/Mg Hydrox/Simethicone (Mylanta) 30 ml Q4HP PRN PO HEARTBURN/INDIGESTION 01/08/20 18:45 Haloperidol (Haldol) 5 mg BID PO 01/11/20 09:00 01/12/20 09:22 Home Med (Med Rec Complete!) ASDIRECTED XX 01/08/20 15:15 01/08/20 15:15 DC Ibuprofen (Advil) 400 mg Q6HP PRN PO PAIN 01/08/20 18:45 Lorazepam (Ativan) 0.5 mg BID PO 01/10/20 09:00 01/10/20 14:17 DC 01/10/20 10:21 Lorazepam (Ativan) 0.5 mg BID@0900,1500 PO 01/10/20 15:00 01/12/20 15:18 Magnesium Hydroxide (Milk Of Magnesia) 30 ml DAILYPRN PRN PO CONSTIPATION 01/08/20 18:45 Olanzapine (ZyPREXA ZYDIS) 5 mg Q4HP PRN PO AGITATION 01/08/20 18:45 Olanzapine (ZyPREXA) 5 mg BID PO 01/09/20 09:00 01/11/20 08:54 DC 01/10/20 21:53 Sertraline HCl (Zoloft) 25 mg QHS PO 01/10/20 21:00 01/11/20 20:40 Trazodone HCl (Desyrel) 50 mg QHSP PRN PO INSOMNIA 01/08/20 18:45 01/10/20 21:54 Allergies Coded Allergies: metronidazole (Verified Allergy, Severe, tongue swelling, throat tightness, 10/05/18) Sulfa (Sulfonamide Antibiotics) (Verified Allergy, Intermediate, hives, 10/05/18) Contrast Media (Verified Allergy, Unknown, 05/21/07) Penicillins (Verified Allergy, Unknown, 10/05/18) metoclopramide (Verified Allergy, Unknown, 10/05/18) prochlorperazine (Verified Allergy, Unknown, 10/05/18) JAZ DEVRIES MD Jan 12, 2020 16:53
[2020-01-12] MEDS: SERTRALINE HCL 25 MG TABLET PO SCH (20:13)
[2020-01-13 06:01] VITALS: BP 139/65
[2020-01-13] MEDS: LORazepam 0.5 MG TAB PO SCH ×2 (08:10→15:08)
[2020-01-13] MEDS: haloperidoL 5 MG TAB PO SCH ×2 (08:10→20:02)
[2020-01-13 16:16] VITALS: BP 130/71
[2020-01-13 16:32] VITALS: BP 118/63
[2020-01-13] MEDS: SERTRALINE HCL 25 MG TABLET PO SCH (20:02)
[2020-01-14 06:34] VITALS: BP 115/74
[2020-01-14] MEDS: LORazepam 0.5 MG TAB PO SCH ×2 (08:35→15:04)
[2020-01-14] MEDS: haloperidoL 5 MG TAB PO SCH (08:35)
[2020-01-14] MEDS ORDERED: BENZTROPINE 0.5 MG TAB PO PRN (10:45)
--- NOTE | 2020-01-14 11:03 | MHIPNPDOC ---
[facility] Progress Note Progress Note DATE OF SERVICE: 01/14/20 HISTORY: Patient is a 49 year old , Unemployed, Domiciled, Female who was brought to [facility] on a 9.41 for Delusional, Bizarre and Psychotic Behaviors. Patient was brought in by [place] [employer] on a 9.41 initiated by her Spouse. He reports that patient has been refusing to eat or drink due to believe that Holy Spirit is taking over her body. Patient has had a prior admission to this facility in June 2019 and April 2007 for similar presentations. Patient has a history of psychosis and non-compliance of medications. Patient stopped taking her medications about one month ago and she decompensated within the month. Her reports that she has been reporting evil spirits and that the Holy Spirit is after the evil spirits. These spirits are forcing her to not eat, walk, drink and apparently forced her to defecate on herself prior to arrival. Patient denies command auditory hallucinations and she appears to be religiously preoccupied during the interaction in the ED. VITAL SIGNS: See below. NEW TEST RESULTS: CURRENT MEDICATIONS: See below. MENTAL STATUS EXAMINATION: Patient is a 49 year old , Unemployed, Domiciled, Female who was brought to [facility] on a 9.41 for Delusional, Bizarre and Psychotic Behaviors. the patient says the Holy spirit lives in her and that people don't believe her but this is true. Speech: Is spontaneous, normal rate tone and volume Language skills are intact Thought processes including: linear, reality based and goal oriented Thought content: denies depression and anxiety, denies SI/HI Abstract reasoning, and computation: fair Description of associations: religiously preoccupied Description of abnormal or psychotic thoughts: Continues to have fixed delusions about the Holy Spirit Judgment: Fair Insight: Fair Orientation: alert and oriented to person and place and situation Recent and remote memory: intact Attention span and concentration: Improved today Language: expansive Fund of knowledge: average Mood: euthymic Affect: flat but at times reactive DIAGNOSES: 1. Unspecified Schizophrenia and Other Psychotic Disorders 2 r/o Major Depressive Disorder with Psychotic Features ASSESSMENT: Patient has fixed delusions that the Holy Spirit lives inside of her. She denies depression or anxiety. Her nutritional and hydration intake has improved. She has improved eye contact, improved speech and conversation. Patient walked to the provider's office and state, "I am doing better but I don't think I should go today" I agreed with patient that she is improving and doing better but that I think she needs a few more days for us to observed her. MANAGEMENT PLAN: Haldol increased to 10 mg at bedtime. 5 mg in AM. Cogentin ordered for EPS symptoms TIME SPENT: 25 minutes. Vital Signs Vital Signs Date Time Temp Pulse Resp B/P (MAP) Pulse Ox O2 Delivery O2 Flow Rate FiO2 01/14/20 06:34 97.7 81 12 115/74 (88) Room Air 01/11/20 06:54 96 Current Medications Current Medications Medications (Trade) Dose Ordered Sig/Moe Route PRN Reason Start Time Stop Time Status Last Admin Dose Admin Al Hydrox/Mg Hydrox/Simethicone (Mylanta) 30 ml Q4HP PRN PO HEARTBURN/INDIGESTION 01/08/20 18:45 Haloperidol (Haldol) 5 mg BID PO 01/11/20 09:00 01/14/20 08:35 Home Med (Med Rec Complete!) ASDIRECTED XX 01/08/20 15:15 01/08/20 15:15 DC Ibuprofen (Advil) 400 mg Q6HP PRN PO PAIN 01/08/20 18:45 Lorazepam (Ativan) 0.5 mg BID PO 01/10/20 09:00 01/10/20 14:17 DC 01/10/20 10:21 Lorazepam (Ativan) 0.5 mg BID@0900,1500 PO 01/10/20 15:00 01/14/20 08:35 Magnesium Hydroxide (Milk Of Magnesia) 30 ml DAILYPRN PRN PO CONSTIPATION 01/08/20 18:45 Olanzapine (ZyPREXA ZYDIS) 5 mg Q4HP PRN PO AGITATION 01/08/20 18:45 Olanzapine (ZyPREXA) 5 mg BID PO 01/09/20 09:00 01/11/20 08:54 DC 01/10/20 21:53 Sertraline HCl (Zoloft) 25 mg QHS PO 01/10/20 21:00 01/13/20 20:02 Trazodone HCl (Desyrel) 50 mg QHSP PRN PO INSOMNIA 01/08/20 18:45 01/10/20 21:54 Allergies Coded Allergies: metronidazole (Verified Allergy, Severe, tongue swelling, throat tightness, 10/05/18) Sulfa (Sulfonamide Antibiotics) (Verified Allergy, Intermediate, hives, 10/05/18) Contrast Media (Verified Allergy, Unknown, 05/21/07) Penicillins (Verified Allergy, Unknown, 10/05/18) metoclopramide (Verified Allergy, Unknown, 10/05/18) prochlorperazine (Verified Allergy, Unknown, 10/05/18) EVONNE GARDUNO NP Jan 14, 2020 10:45
[2020-01-14 17:55] VITALS: BP 121/58
[2020-01-14] MEDS: SERTRALINE HCL 25 MG TABLET PO SCH (19:56)
[2020-01-15 06:57] VITALS: BP 114/57
[2020-01-15] MEDS: LORazepam 0.5 MG TAB PO SCH ×2 (08:28→15:51)
[2020-01-15] MEDS: haloperidoL 5 MG TAB PO SCH (08:28)
--- NOTE | 2020-01-15 14:47 | MHIPNPDOC ---
[facility] Progress Note Progress Note DATE OF SERVICE: 01/15/20 HISTORY: Patient is a 49 year old , Unemployed, Domiciled, Female who was brought to [facility] on a 9.41 for Delusional, Bizarre and Psychotic Behaviors. Patient was brought in by [place] [employer] on a 9.41 initiated by her Spouse. He reports that patient has been refusing to eat or drink due to believe that Holy Spirit is taking over her body. Patient has had a prior admission to this facility in June 2019 and April 2007 for similar presentations. Patient has a history of psychosis and non-compliance of medications. Patient stopped taking her medications about one month ago and she decompensated within the month. Her reports that she has been reporting evil spirits and that the Holy Spirit is after the evil spirits. These spirits are forcing her to not eat, walk, drink and apparently forced her to defecate on herself prior to arrival. Patient denies command auditory hallucinations and she appears to be religiously preoccupied during the interaction in the ED. VITAL SIGNS: See below. NEW TEST RESULTS: CURRENT MEDICATIONS: See below. MENTAL STATUS EXAMINATION: Patient is a 49 year old , Unemployed, Domiciled, Female who was brought to [facility] on a 9.41 for Delusional, Bizarre and Psychotic Behaviors. the patient says the Holy spirit lives in her and that people don't believe her but this is true. Her grooming and hygiene is fair, eye contact is good. No psychomotor agitation or retardation. Speech: Is spontaneous, normal rate tone and volume Language skills are intact Thought processes including: linear, reality based and goal oriented Thought content: denies depression and anxiety, denies SI/HI Abstract reasoning, and computation: fair Description of associations: religiously preoccupied Description of abnormal or psychotic thoughts: Continues to have fixed delusions about the Holy Spirit, the Holy Spirit is putting organs in her Judgment: Fair Insight: Fair Orientation: alert and oriented to person and place and situation Recent and remote memory: intact Attention span and concentration: Improved today Language: expansive Fund of knowledge: average Mood: nervous Affect: flat DIAGNOSES: 1. Unspecified Schizophrenia and Other Psychotic Disorders 2 r/o Major Depressive Disorder with Psychotic Features ASSESSMENT: Patient continues to have fixed delusions that the Holy Spirit lives inside of her. States that she is "so so" she appears to be moderately nervous today. She is not expressing the Holy Spirit being inside her unless it is a direct question but she states that she cannot be discharged today because the Holy Spirit is working on putting her organs in place. MANAGEMENT PLAN: Continue all medications per regimen, we will discharge patient when she is stable. TIME SPENT: 20 minutes Vital Signs Vital Signs Date Time Temp Pulse Resp B/P (MAP) Pulse Ox O2 Delivery O2 Flow Rate FiO2 01/15/20 06:57 99.3 94 16 114/57 (76) 01/14/20 06:34 Room Air 01/11/20 06:54 96 Current Medications Current Medications Medications (Trade) Dose Ordered Sig/Moe Route PRN Reason Start Time Stop Time Status Last Admin Dose Admin Al Hydrox/Mg Hydrox/Simethicone (Mylanta) 30 ml Q4HP PRN PO HEARTBURN/INDIGESTION 01/08/20 18:45 Benztropine Mesylate (Cogentin) 0.5 mg BID PRN PO EPS 01/14/20 10:45 Haloperidol (Haldol) 5 mg BID PO 01/11/20 09:00 01/14/20 10:46 DC 01/14/20 08:35 Haloperidol (Haldol) 5 mg QAM PO 01/15/20 09:00 01/15/20 08:28 Haloperidol (Haldol) 10 mg QHS PO 01/14/20 21:00 01/14/20 19:56 Home Med (Med Rec Complete!) ASDIRECTED XX 01/08/20 15:15 01/08/20 15:15 DC Ibuprofen (Advil) 400 mg Q6HP PRN PO PAIN 01/08/20 18:45 Lorazepam (Ativan) 0.5 mg BID PO 01/10/20 09:00 01/10/20 14:17 DC 01/10/20 10:21 Lorazepam (Ativan) 0.5 mg BID@0900,1500 PO 01/10/20 15:00 01/15/20 08:28 Magnesium Hydroxide (Milk Of Magnesia) 30 ml DAILYPRN PRN PO CONSTIPATION 01/08/20 18:45 Olanzapine (ZyPREXA ZYDIS) 5 mg Q4HP PRN PO AGITATION 01/08/20 18:45 Olanzapine (ZyPREXA) 5 mg BID PO 01/09/20 09:00 01/11/20 08:54 DC 01/10/20 21:53 Sertraline HCl (Zoloft) 25 mg QHS PO 01/10/20 21:00 01/14/20 19:56 Trazodone HCl (Desyrel) 50 mg QHSP PRN PO INSOMNIA 01/08/20 18:45 01/10/20 21:54 Allergies Coded Allergies: metronidazole (Verified Allergy, Severe, tongue swelling, throat tightness, 10/05/18) Sulfa (Sulfonamide Antibiotics) (Verified Allergy, Intermediate, hives, 10/05/18) Contrast Media (Verified Allergy, Unknown, 05/21/07) Penicillins (Verified Allergy, Unknown, 10/05/18) metoclopramide (Verified Allergy, Unknown, 10/05/18) prochlorperazine (Verified Allergy, Unknown, 10/05/18) EVONNE GARDUNO NP Jan 15, 2020 13:13
[2020-01-15] MEDS: SERTRALINE HCL 25 MG TABLET PO SCH (20:00)
[2020-01-16 06:42] VITALS: BP 98/53
[2020-01-16] MEDS ORDERED: LORazepam 0.5 MG TAB PO PRN (08:30)
[2020-01-16] MEDS: haloperidoL 5 MG TAB PO SCH (09:34)
--- NOTE | 2020-01-16 11:26 | MHIPNPDOC ---
[facility] Progress Note Progress Note DATE OF SERVICE: 01/16/20 HISTORY: Patient is a 49 year old , Unemployed, Domiciled, Female who was brought to [facility] on a 9.41 for Delusional, Bizarre and Psychotic Behaviors. Patient was brought in by [place] [employer] on a 9.41 initiated by her Spouse. He reports that patient has been refusing to eat or drink due to believe that Holy Spirit is taking over her body. Patient has had a prior admission to this facility in June 2019 and April 2007 for similar presentations. Patient has a history of psychosis and non-compliance of medications. Patient stopped taking her medications about one month ago and she decompensated within the month. Her reports that she has been reporting evil spirits and that the Holy Spirit is after the evil spirits. These spirits are forcing her to not eat, walk, drink and apparently forced her to defecate on herself prior to arrival. Patient denies command auditory hallucinations and she appears to be religiously preoccupied during the interaction in the ED. VITAL SIGNS: See below. NEW TEST RESULTS: CURRENT MEDICATIONS: See below. MENTAL STATUS EXAMINATION: Patient is a 49 year old , Unemployed, Domiciled, Female who was brought to [facility] on a 9.41 for Delusional, Bizarre and Psychotic Behaviors. the patient says the Holy spirit lives in her and that people don't believe her but this is true. She appears older than her stated age, has poor dentition. Her grooming and hygiene is fair, eye contact is good. No psychomotor agitation or retardation. Smiles on approach. Speech: Is spontaneous, normal rate tone and volume Language skills are intact Thought processes including: linear, reality based and goal oriented Thought content: denies depression and anxiety, denies SI/HI Abstract reasoning, and computation: fair Description of associations: religiously preoccupied Description of abnormal or psychotic thoughts: Continues to have fixed delusions about the Holy Spirit, the Holy Spirit is putting organs in her. She reports that today is not a good day because the Spirit inside is stronger and more frequent. Judgment: Fair Insight: Fair Orientation: alert and oriented to person and place and situation Recent and remote memory: intact Attention span and concentration: good Language: expansive Fund of knowledge: average Mood: mildly nervous Affect: flat DIAGNOSES: 1. Unspecified Schizophrenia and Other Psychotic Disorders 2 r/o Major Depressive Disorder with Psychotic Features ASSESSMENT: Patient continues to have fixed delusions that the Holy Spirit lives inside of her. States that she is not doing as well today as she was yesterday. She reports that the Spirit is stronger and more frequent today. She denies SI/HI, denies AH/VH/TH. She continues to report that the Spirit will replace her organs or put the organs back in her body and when this is complete, she will be ready for discharge. Patient is alert and oriented, to person, place, time and situation. She is visible on the unit, attends some groups, but not readily. She is cooperative and pleasant. MANAGEMENT PLAN: Continue all medications per regimen, Haldol increased from 5 mg in the AM to 10 mg, Zoloft increased from 25 mg to 50 mg. We will discharge patient when she is stable. Patient is also converted to voluntary legal status. TIME SPENT: 25 minutes Vital Signs Vital Signs Date Time Temp Pulse Resp B/P (MAP) Pulse Ox O2 Delivery O2 Flow Rate FiO2 01/16/20 06:42 98.3 72 18 98/53 (68) 97 Room Air Current Medications Current Medications Medications (Trade) Dose Ordered Sig/Moe Route PRN Reason Start Time Stop Time Status Last Admin Dose Admin Al Hydrox/Mg Hydrox/Simethicone (Mylanta) 30 ml Q4HP PRN PO HEARTBURN/INDIGESTION 01/08/20 18:45 Benztropine Mesylate (Cogentin) 0.5 mg BID PRN PO EPS 01/14/20 10:45 Haloperidol (Haldol) 5 mg BID PO 01/11/20 09:00 01/14/20 10:46 DC 01/14/20 08:35 Haloperidol (Haldol) 5 mg QAM PO 01/15/20 09:00 01/16/20 09:34 Haloperidol (Haldol) 10 mg QHS PO 01/14/20 21:00 01/15/20 20:00 Home Med (Med Rec Complete!) ASDIRECTED XX 01/08/20 15:15 01/08/20 15:15 DC Ibuprofen (Advil) 400 mg Q6HP PRN PO PAIN 01/08/20 18:45 Lorazepam (Ativan) 0.5 mg BID PO 01/10/20 09:00 01/10/20 14:17 DC 01/10/20 10:21 Lorazepam (Ativan) 0.5 mg BID@0900,1500 PO 01/10/20 15:00 01/16/20 08:19 DC 01/15/20 15:51 Lorazepam (Ativan) 0.5 mg BIDP PRN PO Anxiety 01/16/20 08:30 Magnesium Hydroxide (Milk Of Magnesia) 30 ml DAILYPRN PRN PO CONSTIPATION 01/08/20 18:45 Olanzapine (ZyPREXA ZYDIS) 5 mg Q4HP PRN PO AGITATION 01/08/20 18:45 Olanzapine (ZyPREXA) 5 mg BID PO 01/09/20 09:00 01/11/20 08:54 DC 01/10/20 21:53 Sertraline HCl (Zoloft) 25 mg QHS PO 01/10/20 21:00 01/16/20 08:52 DC 01/15/20 20:00 Sertraline HCl (Zoloft) 50 mg QHS PO 01/16/20 21:00 Trazodone HCl (Desyrel) 50 mg QHSP PRN PO INSOMNIA 01/08/20 18:45 01/10/20 21:54 Allergies Coded Allergies: metronidazole (Verified Allergy, Severe, tongue swelling, throat tightness, 10/05/18) Sulfa (Sulfonamide Antibiotics) (Verified Allergy, Intermediate, hives, 10/05/18) Contrast Media (Verified Allergy, Unknown, 05/21/07) Penicillins (Verified Allergy, Unknown, 10/05/18) metoclopramide (Verified Allergy, Unknown, 10/05/18) prochlorperazine (Verified Allergy, Unknown, 10/05/18) EVONNE GARDUNO NP Jan 16, 2020 10:31
[2020-01-16 18:00] VITALS: BP 111/55
[2020-01-16] MEDS: SERTRALINE HCL 50 MG TAB PO SCH (19:54)
[2020-01-17 06:33] VITALS: BP 125/69
--- NOTE | 2020-01-17 10:24 | MHIPNPDOC ---
[facility] Progress Note Progress Note DATE OF SERVICE: 01/17/20 HISTORY: Patient is a 49 year old , Unemployed, Domiciled, Female who was brought to [facility] on a 9.41 for Delusional, Bizarre and Psychotic Behaviors. Patient was brought in by [place] [employer] on a 9.41 initiated by her Spouse. He reports that patient has been refusing to eat or drink due to believe that Holy Spirit is taking over her body. Patient has had a prior admission to this facility in June 2019 and April 2007 for similar presentations. Patient has a history of psychosis and non-compliance of medications. Patient stopped taking her medications about one month ago and she decompensated within the month. Her reports that she has been reporting evil spirits and that the Holy Spirit is after the evil spirits. These spirits are forcing her to not eat, walk, drink and apparently forced her to defecate on herself prior to arrival. Patient denies command auditory hallucinations and she appears to be religiously preoccupied during the interaction in the ED. VITAL SIGNS: See below. NEW TEST RESULTS: CURRENT MEDICATIONS: See below. MENTAL STATUS EXAMINATION: Patient is a 49 year old , Unemployed, Domiciled, Female who was brought to [facility] on a 9.41 for Delusional, Bizarre and Psychotic Behaviors. the patient says the Holy spirit lives in her and that people don't believe her but this is true. She appears older than her stated age, has poor dentition. Her grooming and hygiene is fair, her hair is disheveled. eye contact is good. No psychomotor agitation or retardation. Smiles on approach. Speech: Is spontaneous, normal rate tone and volume Language skills are intact Thought processes including: linear, reality based and goal oriented Thought content: denies depression and anxiety, denies SI/HI Abstract reasoning, and computation: fair Description of associations: religiously preoccupied Description of abnormal or psychotic thoughts: Continues to have fixed delusions about the Holy Spirit, the Holy Spirit is putting organs in her. She reports that today is not a good day again because the Spirit inside is stronger and more frequent and still making changes in her. Judgment: Fair Insight: Fair Orientation: alert and oriented to person and place and situation Recent and remote memory: intact Attention span and concentration: good Language: expansive Fund of knowledge: average Mood: mildly nervous Affect: flat DIAGNOSES: 1. Unspecified Schizophrenia and Other Psychotic Disorders 2 r/o Major Depressive Disorder with Psychotic Features ASSESSMENT: Patient continues to have fixed delusions that the Holy Spirit lives inside of her. Patient reports feeling the same as yesterday, says she is "so so - feeling the same with regards to the Spirit and reporting feeling mildly weak in energy. Denies depression, being anxious, denies suicidal/homicidal ideation, planning or intent. The Spirit is making her weaker and this is her complaint. But this feeling is normal most of the time, but she feels that it will end at some point. States that before she lived life in the wrong way and the spirit is changing her life around and when everything inside is change she will be fine. The feeling of the Spirit inside her is stopping her from going home. She reports that she showered today, she walked in the milieu, attended groups yesterday and intends on going to group today. She smiles on approach. Denies that the Spirit harms her in anyway. She believes that her current medication regimen is effective. She is cooperative and pleasant in the interview. MANAGEMENT PLAN: Continue all medications per regimen. We will discharge patient when she is stable. Due to continued rastafari preoccupation that the Spirit will not let her leave until her "insides are changed" I feel that discharging her today would result in an immediate rehospitalization, in that her symptoms are tenuous and unstable. TIME SPENT: 25 minutes Vital Signs Vital Signs Date Time Temp Pulse Resp B/P (MAP) Pulse Ox O2 Delivery O2 Flow Rate FiO2 01/17/20 06:33 96.9 92 16 125/69 (87) Room Air 01/16/20 06:42 97 Current Medications Current Medications Medications (Trade) Dose Ordered Sig/Moe Route PRN Reason Start Time Stop Time Status Last Admin Dose Admin Al Hydrox/Mg Hydrox/Simethicone (Mylanta) 30 ml Q4HP PRN PO HEARTBURN/INDIGESTION 01/08/20 18:45 Benztropine Mesylate (Cogentin) 0.5 mg BID PRN PO EPS 01/14/20 10:45 Haloperidol (Haldol) 5 mg BID PO 01/11/20 09:00 01/14/20 10:46 DC 01/14/20 08:35 Haloperidol (Haldol) 5 mg QAM PO 01/15/20 09:00 01/16/20 10:22 DC 01/16/20 09:34 Haloperidol (Haldol) 10 mg QAM PO 01/17/20 09:00 01/17/20 08:13 Haloperidol (Haldol) 10 mg QHS PO 01/14/20 21:00 01/16/20 19:54 Home Med (Med Rec Complete!) ASDIRECTED XX 01/08/20 15:15 01/08/20 15:15 DC Ibuprofen (Advil) 400 mg Q6HP PRN PO PAIN 01/08/20 18:45 Lorazepam (Ativan) 0.5 mg BID PO 01/10/20 09:00 01/10/20 14:17 DC 01/10/20 10:21 Lorazepam (Ativan) 0.5 mg BID@0900,1500 PO 01/10/20 15:00 01/16/20 08:19 DC 01/15/20 15:51 Lorazepam (Ativan) 0.5 mg BIDP PRN PO Anxiety 01/16/20 08:30 Magnesium Hydroxide (Milk Of Magnesia) 30 ml DAILYPRN PRN PO CONSTIPATION 01/08/20 18:45 Olanzapine (ZyPREXA ZYDIS) 5 mg Q4HP PRN PO AGITATION 01/08/20 18:45 Olanzapine (ZyPREXA) 5 mg BID PO 01/09/20 09:00 01/11/20 08:54 DC 01/10/20 21:53 Sertraline HCl (Zoloft) 25 mg QHS PO 01/10/20 21:00 01/16/20 08:52 DC 01/15/20 20:00 Sertraline HCl (Zoloft) 50 mg QHS PO 01/16/20 21:00 01/16/20 19:54 Trazodone HCl (Desyrel) 50 mg QHSP PRN PO INSOMNIA 01/08/20 18:45 01/10/20 21:54 Allergies Coded Allergies: metronidazole (Verified Allergy, Severe, tongue swelling, throat tightness, 10/05/18) Sulfa (Sulfonamide Antibiotics) (Verified Allergy, Intermediate, hives, 10/05/18) Contrast Media (Verified Allergy, Unknown, 05/21/07) Penicillins (Verified Allergy, Unknown, 10/05/18) metoclopramide (Verified Allergy, Unknown, 10/05/18) prochlorperazine (Verified Allergy, Unknown, 10/05/18) EVONNE GARDUNO NP Jan 17, 2020 10:24
[2020-01-17 16:31] VITALS: BP 108/58
[2020-01-17] MEDS: SERTRALINE HCL 50 MG TAB PO SCH (19:56)
[2020-01-18 06:35] VITALS: BP 117/53
--- NOTE | 2020-01-18 10:41 | MHIPNPDOC ---
[facility] Progress Note Progress Note DATE OF SERVICE: 01/18/20 HISTORY: Patient is a 49 year old , Unemployed, Domiciled, Female who was brought to [facility] on a 9.41 for Delusional, Bizarre and Psychotic Behaviors. Patient was brought in by [place] [employer] on a 9.41 initiated by her Spouse. He reports that patient has been refusing to eat or drink due to believe that Holy Spirit is taking over her body. Patient has had a prior admission to this facility in June 2019 and April 2007 for similar presentations. Patient has a history of psychosis and non-compliance of medications. Patient stopped taking her medications about one month ago and she decompensated within the month. Her reports that she has been reporting evil spirits and that the Holy Spirit is after the evil spirits. These spirits are forcing her to not eat, walk, drink and apparently forced her to defecate on herself prior to arrival. Patient denies command auditory hallucinations and she appears to be religiously preoccupied during the interaction in the ED. VITAL SIGNS: See below. NEW TEST RESULTS: CURRENT MEDICATIONS: See below. MENTAL STATUS EXAMINATION: Patient is a 49 year old , Unemployed, Domiciled, Female who was brought to [facility] on a 9.41 for Delusional, Bizarre and Psychotic Behaviors. the patient says the Holy spirit lives in her and that people don't believe her but this is true. She appears older than her stated age, has poor dentition. Her grooming and hygiene is fair, her hair is disheveled. Eye contact is good. No psychomotor agitation or retardation. Smiles on approach. Speech: Is spontaneous, normal rate tone and volume Language skills are intact Thought processes including: linear, reality based and goal oriented Thought content: denies depression and anxiety, denies SI/HI Abstract reasoning, and computation: fair Description of associations: religiously preoccupied Description of abnormal or psychotic thoughts: Fixed delusions about the Holy Spirit, the Holy Spirit is putting organs back inside her. She reports that today is a so sot a good day because the Spirit is still working on her Judgment: Fair Insight: Fair Orientation: alert and oriented to person and place and situation Recent and remote memory: intact Attention span and concentration: good Language: expansive Fund of knowledge: average Mood: nervous Affect: flat/congruent with mood DIAGNOSES: 1. Unspecified Schizophrenia and Other Psychotic Disorders ASSESSMENT: Patient continues to have fixed delusions that the Holy Spirit lives inside of her. Patient reports feeling the same as yesterday, says she is "so so - feeling the same with regards to the Spirit and reporting feeling mildly weak in energy. Denies depression, being anxious, denies suicidal/homicidal ideation, planning or intent. She reports only a mild improvement, she can't articulate what needs to happen in order for her to be stable/feel stable. When asked about being discharged, she becomes very nervous and states, "I am not ready, the Spirit is still inside me and I can't go home yet." When pressed for the criteria for being stable patient states that she does not know but she states that she will know when the Spirit is finished. She is somewhat agreeable to considering discharge next week as she wants to be home for [facility]. Discussed medications with patient, she wants no changes at this time, feels that the current regimen is helping. Encouraged patient to take her Trazodone for sleep. MANAGEMENT PLAN: Continue all medications per regimen. We will discharge patient when she is stable. TIME SPENT: 25 minutes Vital Signs Vital Signs Date Time Temp Pulse Resp B/P (MAP) Pulse Ox O2 Delivery O2 Flow Rate FiO2 01/18/20 06:35 97.6 60 16 117/53 (74) Room Air 01/16/20 06:42 97 Current Medications Current Medications Medications (Trade) Dose Ordered Sig/Moe Route PRN Reason Start Time Stop Time Status Last Admin Dose Admin Al Hydrox/Mg Hydrox/Simethicone (Mylanta) 30 ml Q4HP PRN PO HEARTBURN/INDIGESTION 01/08/20 18:45 Benztropine Mesylate (Cogentin) 0.5 mg BID PRN PO EPS 01/14/20 10:45 Haloperidol (Haldol) 5 mg BID PO 01/11/20 09:00 01/14/20 10:46 DC 01/14/20 08:35 Haloperidol (Haldol) 5 mg QAM PO 01/15/20 09:00 01/16/20 10:22 DC 01/16/20 09:34 Haloperidol (Haldol) 10 mg QAM PO 01/17/20 09:00 01/18/20 08:22 Haloperidol (Haldol) 10 mg QHS PO 01/14/20 21:00 01/17/20 19:56 Home Med (Med Rec Complete!) ASDIRECTED XX 01/08/20 15:15 01/08/20 15:15 DC Ibuprofen (Advil) 400 mg Q6HP PRN PO PAIN 01/08/20 18:45 Lorazepam (Ativan) 0.5 mg BID PO 01/10/20 09:00 01/10/20 14:17 DC 01/10/20 10:21 Lorazepam (Ativan) 0.5 mg BID@0900,1500 PO 01/10/20 15:00 01/16/20 08:19 DC 01/15/20 15:51 Lorazepam (Ativan) 0.5 mg BIDP PRN PO Anxiety 01/16/20 08:30 Magnesium Hydroxide (Milk Of Magnesia) 30 ml DAILYPRN PRN PO CONSTIPATION 01/08/20 18:45 Olanzapine (ZyPREXA ZYDIS) 5 mg Q4HP PRN PO AGITATION 01/08/20 18:45 Olanzapine (ZyPREXA) 5 mg BID PO 01/09/20 09:00 01/11/20 08:54 DC 01/10/20 21:53 Sertraline HCl (Zoloft) 25 mg QHS PO 01/10/20 21:00 01/16/20 08:52 DC 01/15/20 20:00 Sertraline HCl (Zoloft) 50 mg QHS PO 01/16/20 21:00 01/17/20 19:56 Trazodone HCl (Desyrel) 50 mg QHSP PRN PO INSOMNIA 01/08/20 18:45 01/10/20 21:54 Allergies Coded Allergies: metronidazole (Verified Allergy, Severe, tongue swelling, throat tightness , 10/05/18) Sulfa (Sulfonamide Antibiotics) (Verified Allergy, Intermediate, hives, 10/05/18) Contrast Media (Verified Allergy, Unknown, 05/21/07) Penicillins (Verified Allergy, Unknown, 10/05/18) metoclopramide (Verified Allergy, Unknown, 10/05/18) prochlorperazine (Verified Allergy, Unknown, 10/05/18) EVONNE GARDUNO NP Jan 18, 2020 10:41
[2020-01-18 11:00] VITALS: BP 117/53
[2020-01-18] MEDS: SERTRALINE HCL 50 MG TAB PO SCH (20:00)
[2020-01-19 06:33] VITALS: BP 114/56
[2020-01-19 17:35] VITALS: BP 96/53
[2020-01-19] MEDS: SERTRALINE HCL 50 MG TAB PO SCH (20:12)
[2020-01-20 06:52] VITALS: BP 106/55
[2020-01-20 18:56] VITALS: BP 118/68
[2020-01-20] MEDS: SERTRALINE HCL 50 MG TAB PO SCH (20:03)
[2020-01-20] MEDS: traZODone 50 MG TAB PO PRN (20:03)
[2020-01-21 06:57] VITALS: BP 91/53
--- NOTE | 2020-01-21 12:58 | MHIPNPDOC ---
[facility] Progress Note Progress Note DATE OF SERVICE: 01/21/20 HISTORY: Patient is a 49 year old , Unemployed, Domiciled, Female who was brought to [facility] on a 9.41 for Delusional, Bizarre and Psychotic Behaviors. Patient was brought in by [place] [employer] on a 9.41 initiated by her Spouse. He reports that patient has been refusing to eat or drink due to believe that Holy Spirit is taking over her body. Patient has had a prior admission to this facility in June 2019 and April 2007 for similar presentations. Patient has a history of psychosis and non-compliance of medications. Patient stopped taking her medications about one month ago and she decompensated within the month. Her reports that she has been reporting evil spirits and that the Holy Spirit is after the evil spirits. These spirits are forcing her to not eat, walk, drink and apparently forced her to defecate on herself prior to arrival. Patient denies command auditory hallucinations and she appears to be religiously preoccupied during the interaction in the ED. VITAL SIGNS: See below. NEW TEST RESULTS: CURRENT MEDICATIONS: See below. MENTAL STATUS EXAMINATION: Patient is a 49 year old , Unemployed, Domiciled, Female who was brought to [facility] on a 9.41 for Delusional, Bizarre and Psychotic Behaviors. the patient says the Holy spirit lives in her and that people don't believe her but this is true. She appears older than her stated age, has poor dentition. Her grooming and hygiene is fair, her hair is disheveled. Eye contact is good. No psychomotor agitation or retardation. Smiles on approach. Speech: Is spontaneous, normal rate tone and volume Language skills are intact Thought processes including: linear, reality based and goal oriented Thought content: denies depression and anxiety, denies SI/HI Abstract reasoning, and computation: fair Description of associations: religiously preoccupied Description of abnormal or psychotic thoughts: Fixed delusions about the Holy Spirit. She reports that today is a so so a good day. Judgment: Fair Insight: Fair Orientation: alert and oriented to person and place and situation Recent and remote memory: intact Attention span and concentration: good Language: expansive Fund of knowledge: average Mood: nervous Affect: flat/congruent with mood DIAGNOSES: 1. Unspecified Schizophrenia and Other Psychotic Disorders ASSESSMENT: Patient continues to have fixed delusions that the Holy Spirit lives inside of her. says she is "so so - feeling the same with regards to the Spirit. She states on Tuesday she stayed close to her room, on Tuesday she was out of her room, ambulating through the unit and showered. Today she reports she is out of the room and ambulating through the unit. Comparatively, she states that the Spirit inside her is the same whether she is in her room or out of it. She denies that she is a danger to herself or others, denies depression or anxiety. She states that while she does not feel better, because of the Spirit, she does not feel that she would return to not eating or drinking, albeit she states she is fairly sure but not 100% sure. From this aspect she reports that she is moderately better. Patient initially in this interview stated that she wanted to leave on Tuesday but is fearful of the Spirit that continues to be inside her. She ended the interview stating, "We will have to play it by ear." MANAGEMENT PLAN: Continue all medications per regimen. We will discharge patient when she is stable. TIME SPENT: 25 minutes Vital Signs Vital Signs Date Time Temp Pulse Resp B/P (MAP) Pulse Ox O2 Delivery O2 Flow Rate FiO2 01/21/20 06:57 98.5 63 16 91/53 (66) 98 Room Air Current Medications Current Medications Medications (Trade) Dose Ordered Sig/Moe Route PRN Reason Start Time Stop Time Status Last Admin Dose Admin Al Hydrox/Mg Hydrox/Simethicone (Mylanta) 30 ml Q4HP PRN PO HEARTBURN/INDIGESTION 01/08/20 18:45 Benztropine Mesylate (Cogentin) 0.5 mg BID PRN PO EPS 01/14/20 10:45 Haloperidol (Haldol) 5 mg BID PO 01/11/20 09:00 01/14/20 10:46 DC 01/14/20 08:35 Haloperidol (Haldol) 5 mg QAM PO 01/15/20 09:00 01/16/20 10:22 DC 01/16/20 09:34 Haloperidol (Haldol) 10 mg QAM PO 01/17/20 09:00 01/21/20 08:02 Haloperidol (Haldol) 10 mg QHS PO 01/14/20 21:00 01/20/20 20:04 Home Med (Med Rec Complete!) ASDIRECTED XX 01/08/20 15:15 01/08/20 15:15 DC Ibuprofen (Advil) 400 mg Q6HP PRN PO PAIN 01/08/20 18:45 01/18/20 19:20 Lorazepam (Ativan) 0.5 mg BID PO 01/10/20 09:00 01/10/20 14:17 DC 01/10/20 10:21 Lorazepam (Ativan) 0.5 mg BID@0900,1500 PO 01/10/20 15:00 01/16/20 08:19 DC 01/15/20 15:51 Lorazepam (Ativan) 0.5 mg BIDP PRN PO Anxiety 01/16/20 08:30 Magnesium Hydroxide (Milk Of Magnesia) 30 ml DAILYPRN PRN PO CONSTIPATION 01/08/20 18:45 Olanzapine (ZyPREXA ZYDIS) 5 mg Q4HP PRN PO AGITATION 01/08/20 18:45 Olanzapine (ZyPREXA) 5 mg BID PO 01/09/20 09:00 01/11/20 08:54 DC 01/10/20 21:53 Sertraline HCl (Zoloft) 25 mg QHS PO 01/10/20 21:00 01/16/20 08:52 DC 01/15/20 20:00 Sertraline HCl (Zoloft) 50 mg QHS PO 01/16/20 21:00 01/20/20 20:03 Trazodone HCl (Desyrel) 50 mg QHSP PRN PO INSOMNIA 01/08/20 18:45 01/20/20 20:03 Allergies Coded Allergies: metronidazole (Verified Allergy, Severe, tongue swelling, throat tightness, 10/05/18) Sulfa (Sulfonamide Antibiotics) (Verified Allergy, Intermediate, hives, 10/05/18) Contrast Media (Verified Allergy, Unknown, 05/21/07) Penicillins (Verified Allergy, Unknown, 10/05/18) metoclopramide (Verified Allergy, Unknown, 10/05/18) prochlorperazine (Verified Allergy, Unknown, 10/05/18) EVONNE GARDUNO DOG RAISER Jan 21, 2020 12:22
[2020-01-21 16:50] VITALS: BP 101/69
[2020-01-21] MEDS: SERTRALINE HCL 50 MG TAB PO SCH (21:51)
[2020-01-22 06:20] VITALS: BP 91/51
[2020-01-22] MEDS ORDERED: TRAZ-252 PO (11:44)
[2020-01-22] MEDS ORDERED: HALO10TA20 PO (11:44)
[2020-01-22] MEDS ORDERED: BENZ0.5T23 PO (11:44)
[2020-01-22] MEDS ORDERED: SERT50TA29 PO (11:44)
--- NOTE | 2020-01-22 12:49 | MHIPNPDOC ---
[facility] Progress Note Progress Note DATE OF SERVICE: 01/22/20 HISTORY: Patient is a 49 year old , Unemployed, Domiciled, Female who was brought to [facility] on a 9.41 for Delusional, Bizarre and Psychotic Behaviors. Patient was brought in on a 9.41 initiated by her Spouse when the patient began refusing to eat or drink due to believe that Holy Spirit is taking over her body. VITAL SIGNS: See below. NEW TEST RESULTS: CURRENT MEDICATIONS: See below. MENTAL STATUS EXAMINATION: Patient is a 49 year old , Unemployed, Domiciled, Female who was brought to [facility] on a 9.41 for Delusional, Bizarre and Psychotic Behaviors. the patient says the Holy spirit lives in her and that people don't believe her but this is true. She appears older than her stated age, has poor dentition. Her grooming and hygiene is fair, her hair is disheveled. Eye contact is fair. No psychomotor agitation or retardation. Speech: Is spontaneous, low rate tone and volume Language skills are intact Thought processes including: linear, reality based and goal oriented Thought content: denies depression and anxiety, denies SI/HI Abstract reasoning, and computation: fair Description of associations: religiously preoccupied Description of abnormal or psychotic thoughts: Fixed delusions about the Holy Spirit. She reports that today is again a "so so" day. Judgment: Fair Insight: Fair Orientation: alert and oriented to person and place and situation Recent and remote memory: intact Attention span and concentration: good Language: expansive Fund of knowledge: average Mood: nervous Affect: flat/congruent with mood DIAGNOSES: 1. Unspecified Schizophrenia and Other Psychotic Disorders ASSESSMENT: Patient continues to report that she has a "Spirit" inside her. She was found in her room. She reports that she doesn't feel well because the Spirits are still her body, but states that she is overall better. When asked, what is better she states "I feel better." Patient states that she vacillates from wanting to stay for another two days or leaving tomorrow. When asked if she is ready she states that she thinks she is but is not confident. When asked if she feels so poorly that another two days would change anything with the Spirits she states no. At this time, based on her 's report that patient's rastafarian preoccupation with "the Spirit" is a fixed delusions, we may not be able to eliminate it with more medications. MANAGEMENT PLAN: Continue all medications per regimen. We will discharge patient tomorrow. TIME SPENT: 15 minutes Vital Signs Vital Signs Date Time Temp Pulse Resp B/P (MAP) Pulse Ox O2 Delivery O2 Flow Rate FiO2 01/22/20 06:20 97.5 98 14 91/51 (64) 97 Room Air Current Medications Current Medications Medications (Trade) Dose Ordered Sig/Moe Route PRN Reason Start Time Stop Time Status Last Admin Dose Admin Al Hydrox/Mg Hydrox/Simethicone (Mylanta) 30 ml Q4HP PRN PO HEARTBURN/INDIGESTION 01/08/20 18:45 Benztropine Mesylate (Cogentin) 0.5 mg BID PRN PO EPS 01/14/20 10:45 Haloperidol (Haldol) 5 mg BID PO 01/11/20 09:00 01/14/20 10:46 DC 01/14/20 08:35 Haloperidol (Haldol) 5 mg QAM PO 01/15/20 09:00 01/16/20 10:22 DC 01/16/20 09:34 Haloperidol (Haldol) 10 mg QAM PO 01/17/20 09:00 01/22/20 07:55 Haloperidol (Haldol) 10 mg QHS PO 01/14/20 21:00 01/21/20 21:52 Home Med (Med Rec Complete!) ASDIRECTED XX 01/08/20 15:15 01/08/20 15:15 DC Ibuprofen (Advil) 400 mg Q6HP PRN PO PAIN 01/08/20 18:45 01/18/20 19:20 Lorazepam (Ativan) 0.5 mg BID PO 01/10/20 09:00 01/10/20 14:17 DC 01/10/20 10:21 Lorazepam (Ativan) 0.5 mg BID@0900,1500 PO 01/10/20 15:00 01/16/20 08:19 DC 01/15/20 15:51 Lorazepam (Ativan) 0.5 mg BIDP PRN PO Anxiety 01/16/20 08:30 Magnesium Hydroxide (Milk Of Magnesia) 30 ml DAILYPRN PRN PO CONSTIPATION 01/08/20 18:45 Olanzapine (ZyPREXA ZYDIS) 5 mg Q4HP PRN PO AGITATION 01/08/20 18:45 Olanzapine (ZyPREXA) 5 mg BID PO 01/09/20 09:00 01/11/20 08:54 DC 01/10/20 21:53 Sertraline HCl (Zoloft) 25 mg QHS PO 01/10/20 21:00 01/16/20 08:52 DC 01/15/20 20:00 Sertraline HCl (Zoloft) 50 mg QHS PO 01/16/20 21:00 01/21/20 21:51 Trazodone HCl (Desyrel) 50 mg QHSP PRN PO INSOMNIA 01/08/20 18:45 01/20/20 20:03 Allergies Coded Allergies: metronidazole (Verified Allergy, Severe, tongue swelling, throat tightness, 10/05/18) Sulfa (Sulfonamide Antibiotics) (Verified Allergy, Intermediate, hives, 10/05/18) Contrast Media (Verified Allergy, Unknown, 05/21/07) Penicillins (Verified Allergy, Unknown, 10/05/18) metoclopramide (Verified Allergy, Unknown, 10/05/18) prochlorperazine (Verified Allergy, Unknown, 10/05/18) EVONNE GARDUNO NP Jan 22, 2020 12:49
[2020-01-22 16:18] VITALS: BP 100/63
[2020-01-22] MEDS: SERTRALINE HCL 50 MG TAB PO SCH (21:58)
[2020-01-23 06:29] VITALS: BP 111/65
--- NOTE | 2020-01-23 11:08 | MHDSPDOC ---
[facility] Discharge Summary Discharge Summary DATE OF ADMISSION: Jan 08, 2020 at 18:36 DATE OF DISCHARGE: January 23, 2020 at 1052 DISCHARGE DIAGNOSES: Schizophrenia Disorder REASON FOR ADMISSION: Patient is a 49 year old , Unemployed, Domiciled, Female who was brought to [facility] on a 9.41 for Delusional, Bizarre and Psychotic Behaviors. Patient was brought in on a 9.41 initiated by her Spouse when the patient began refusing to eat or drink due to believe that Holy Spirit is taking over her body. CONSULTANTS INVOLVED: see Medical H + P by Hospitalist TREATMENT AND PROGRESS ON THE UNIT: Patient was admitted to the [facility] on a 9.39 legal status he was afforded the following treatment modalities: 1) Individual Therapy 2) Group Therapy 3) Medication Management 4) Milieu Therapy 5) Safe Environment HOSPITAL COURSE: Patient was admitted to [facility] on a 9.39 legal status. She was initially very withdrawn and isolative to her room. The first two days she preferred not to speak to me, stating that she could not due to the "Spirit not letting her." This behavior eventually passed as she ambulated to my office daily. During most of her individual therapy she reported that she was feeling better, that the Spirit was less intense and that this feeling of the spirit was not an auditory hallucination but more of a rastafari preoccupation. Patient was not overly rastafari in her behaviors while on the unit. She often would say that the Spirit was changing things her her body. Patient was started on Haldol which she had reported to be therapeutic. I also increased her Zoloft to 50 mg at HS. Patient is future oriented and vacillates with returning home or staying for "two more days". She is see as stable. Pt has attended groups, has been social with peers, visible and pleasant in the milieu and cooperative in individual therapy. At this time, patient meets criteria for discharge. DISCHARGE ASSESSMENT: This provider spoke with patient's spouse prior to the her discharge meeting. Darren (pt's ) states that patient has had a long time fixed delusion about this Spirit. He has spoken to her while she has been hospitalized and feels that she is safe to return home today. He is aware that the patient is apprehensive and is fearful, mildly requesting to continue her hospitalization fo a few more days. Spouse states that patient has previously sabotaged her discharges before but he feels that her anxiety is normal and he reiterates that she is stable from his communications with her, He is planning to drop down to part-time in order to help her transition to home. She states that she is anxious to return home. She denied suicidal/homicidal ideation, planning or intent. Patient denies depression, she not exhibiting abnormal psychotic symptom, and is not manic/obsessive/delusional. At this time, patient has a stable mental status, does not pose a danger to herself or others and meets criteria for discharge. She is returning to her home with her , and he is welcoming her back. MENTAL STATUS EXAMINATION ON DISCHARGE: Patient is a 49 year old , Unemployed, Domiciled, Female who was brought to [facility] on a 9.41 for Delusional, Bizarre and Psychotic Behaviors. the patient says the Holy spirit lives in her and that people don't believe her but this is true. She appears older than her stated age, has poor dentition. Her grooming and hygiene is fair, her hair is disheveled. Eye contact is fair. No psychomotor agitation or retardation. Speech: Is spontaneous, low rate tone and volume Language skills are intact Thought processes including: linear, reality based and goal oriented Thought content: denies depression and anxiety, denies SI/HI Abstract reasoning, and computation: fair Description of associations: religiously preoccupied Description of abnormal or psychotic thoughts: Fixed delusions about the Holy Spirit. She reports that today is again a "so so" day. Judgment: Fair Insight: Fair Orientation: alert and oriented to person and place and situation Recent and remote memory: intact Attention span and concentration: good Language: expansive Fund of knowledge: average Mood: nervous Affect: flat/congruent with mood MEDICATIONS ON DISCHARGE: See Medication Reconciliation PLAN/FOLLOWUP ARRANGEMENTS: [facility] The amount of time spent in the coordination of care for this patient was approximately 45 minutes. Vital Signs/I&Os Vital Signs Date Time Temp Pulse Resp B/P (MAP) Pulse Ox O2 Delivery O2 Flow Rate FiO2 01/23/20 06:29 99.1 86 17 111/65 (80) 97 Room Air Medications Scheduled Haloperidol (Haloperidol) 10 Mg Tablet, 10 MG PO BID for Hallucinations, #14 Sertraline HCl (Sertraline HCl) 50 Mg Tablet, 50 MG PO QHS for Depression, #7 Scheduled PRN Benztropine Mesylate (Benztropine Mesylate) 0.5 Mg Tablet, 0.5 MG PO BID PRN for EPS, #14 Trazodone HCl (Trazodone HCl) 50 Mg Tablet, 50 MG PO QHSP PRN for INSOMNIA, #7 Allergies Coded Allergies: metronidazole (Verified Allergy, Severe, tongue swelling, throat tightness, 10/05/18) Sulfa (Sulfonamide Antibiotics) (Verified Allergy, Intermediate, hives, 10/05/18) Contrast Media (Verified Allergy, Unknown, 05/21/07) Penicillins (Verified Allergy, Unknown, 10/05/18) metoclopramide (Verified Allergy, Unknown, 10/05/18) prochlorperazine (Verified Allergy, Unknown, 10/05/18) EVONNE GARDUNO NP Jan 23, 2020 11:08
== END 2020-01-23 12:35 | disposition home or self-care (01) | DRG 750 ==
LOC: M ED 12:29 → M ED INP 18:36 → M PSY 22:30
PROVIDERS: ADMIT Psychiatry & Neurology Psychiatry; ATTEND Psychiatry & Neurology Psychiatry
DX: F20.9 Schizophrenia, unspecified (principal); Z88.0 Allergy status to penicillin; Z88.2 Allergy status to sulfonamides; Z88.8 Allergy status to other drugs, medicaments and biological substances; Z91.041 Radiographic dye allergy status; Z91.14 Patient's other noncompliance with medication regimen

== ENCOUNTER 2020-03-06 13:26 | Inpatient (IN) | payer OTHER ==
[~2020-03-06] VITALS: Ht 152.4 cm; Wt 47.7 kg
[~2020-03-06 13:26] MED LIST changes: +BENZ0.5T23 PO; +HALO10TA20 PO; +SERT50TA29 PO
[2020-03-06 15:22] LABS: HEMATOCRIT 45.1 % (36.0-47.0); HEMOGLOBIN 14.5 g/dl (12.0-15.5); MEAN CORPUSCULAR HEMOGLOBIN 29.9 pg (27.0-33.0); MEAN CORPUSCULAR HGB CONC 32.2 g/dl (32.0-36.5); PLATELET COUNT, AUTOMATED 332 10^3/uL (150-450); RED BLOOD COUNT 4.85 10^6/uL (4.00-5.40); WHITE BLOOD COUNT 9.6 10^3/uL (4.0-10.0)
[2020-03-06 16:03] LABS: ACETAMINOPHEN LEVEL < 2.0 UG/ML (10.0-30.0); ALBUMIN 3.6 GM/DL (3.2-5.2); ALT/SGPT 23 U/L (12-78); BILIRUBIN,DIRECT 0.1 MG/DL (0.0-0.2); BILIRUBIN,TOTAL 0.6 MG/DL (0.2-1.0); BLOOD UREA NITROGEN 12 MG/DL (7-18); CALCIUM LEVEL 9.4 MG/DL (8.5-10.1); CARBON DIOXIDE LEVEL 29 MEQ/L (21-32); CHLORIDE LEVEL 107 MEQ/L (98-107); CREATININE FOR GFR 0.66 MG/DL (0.55-1.30); ETHYL ALCOHOL (ETHANOL) < 0.003 % (0.000-0.010); GLOMERULAR FILTRATION RATE > 60.0 (>58); GLUCOSE, FASTING 107 MG/DL (70-100); POTASSIUM SERUM 4.5 MEQ/L (3.5-5.1); SALICYLATE LEVEL < 1.7 MG/DL (5.0-30.0); SODIUM LEVEL 141 MEQ/L (136-145); TOTAL PROTEIN 6.4 GM/DL (6.4-8.2)
[2020-03-06 16:04] LABS: HCG, SERUM QUALITATIVE NEGATIVE (NEGATIVE)
--- NOTE | 2020-03-06 16:21 | REP ---
INDICATION: altered mental status. COMPARISON: July 12, 2019 and May 20, 2007. TECHNIQUE: Helical scanning is acquired. 5 mm axial images were reformatted. Coronal MPR images were generated. FINDINGS: Bone window settings demonstrate an intact bony calvarium. There is no evidence of skull fracture or incidental bony calvarial lesion. The visualized paranasal sinuses appear clear. No intraorbital abnormality is seen. On soft tissue window setting images; the lateral, third, and fourth ventricles are normal in size and position. Graves-white differentiation pattern is normal above and below the tentorium. There are is no evidence of intracranial hemorrhage. No mass, edema, infarction, or midline shift is seen. No extra-axial fluid collection is appreciated. A right-sided frontal ventriculostomy catheter remains in place terminating at the midline unchanged from the 2008 prior study. Rib tracheal ower size is normal and unchanged. IMPRESSION: Right-sided ventriculostomy catheter again noted in place unchanged. No evidence of hydrocephalus or other acute intracranial abnormality.. <Electronically signed by Odilon Adams > 03/06/20 [id number]
--- NOTE | 2020-03-06 16:35 | REP ---
INDICATION: altered mental status. COMPARISON: None. TECHNIQUE: AP and lateral views of the calvarium along with frontal view of the chest and abdomen FINDINGS: Ventriculoperitoneal shunt identified extending from the region of the right lateral ventricle along the right-side of the neck, mediastinum, and into the upper abdomen. Shunt appears grossly intact. IMPRESSION: Shunt appears grossly intact. <Electronically signed by Jass Astorga > 03/06/20 [id number]
[2020-03-06 19:07] LABS: AMPHETAMINES LEVEL URINE NEGATIVE (NEGATIVE); BARBITURATES URINE NEGATIVE (NEGATIVE); BENZODIAZEPINES URINE NEGATIVE (NEGATIVE); CANNABINOIDS URINE NEGATIVE (NEGATIVE); COCAINE METABOLITE URINE NEGATIVE (NEGATIVE); METHADONE URINE NEGATIVE (NEGATIVE); OPIATES URINE NEGATIVE (NEGATIVE); PHENCYCLIDINE URINE NEGATIVE (NEGATIVE)
[2020-03-06] MEDS ORDERED: PROAAER10 INH (19:57)
[2020-03-06] MEDS ORDERED: MOM 30ML SUSPENSION UDC PO PRN (21:45)
[2020-03-06] MEDS ORDERED: ALBUTEROL 90 MCG/ACT 8GM HFA INHALER INH PRN (21:45)
[2020-03-06] MEDS ORDERED: BENZTROPINE 0.5 MG TAB PO PRN (21:45)
[2020-03-06] MEDS ORDERED: ACETAMINOPHEN TAB 650MG DOSE (2X325MG) PO PRN (21:45)
[2020-03-06] MEDS ORDERED: MAALOX 30 ML SUSP *UDC PO PRN (21:45)
[2020-03-06 23:03] VITALS: BP 134/80
[2020-03-07 07:07] VITALS: BP 149/83
--- NOTE | 2020-03-07 14:34 | MHHPEPDOC ---
General Date Of Admission: Mar 07, 2020 Legal Status: 9.39 Chief Complaint "It's the same thing, I stopped eating and drinking because the Holy Spirit is inside me." History of Present Illness HISTORY OF THE PRESENT ILLNESS: Patient is a 49 -year-old , female, who had stopped talking her medications after she was discharged roughly around December. He apparently dropped her off because she again began to decompensate and stopped eating and drinking because she became delusional with the Holy Spirits and Evils Spirits inside her. Psychiatric Review of Systems Depression (2 or more weeks): depressed mood, appetite changes (poor), denies (Patient denies symptoms but ED reported, anxiety, depressed mood, poor concentration, poor impulse control, psychotic symptoms, suicidal ideation), other (relationship issues) Berta (4 or more days of): denies Psychosis: delusions, paranoia PTSD: denies Anxiety: situational anxiety, stressor related anxiety Past Psychiatric History Previous Psychiatric Diagnosis: Schizophrenia Previous Psychiatric Admissions: This is patient's fourth hospitalization, she was recently discharged from this facility on 01/23/2020 Suicide Attempts: None Psychiatric Follow-up: [facility] Psychiatric medications: Haldol and Sertraline. Past Medical History Medical Problems Right Brain Shunt Hydrocephalus Head Injury: No Seizures: Yes (due to medications Prochlorperazine) Hospitalizations: Yes Surgeries: Yes Family Medical/Psychiatric HX Psychiatric Disorders: Yes Addiction: Yes Suicide Attemps/Completions: No Addiction History nicotine Social History Childhood: [place] in [place], grew up with both parents, Dad when she was 14 years old, she is the youngest of 7 children Abuse/Trauma:Denies Current Living Situation: Lives with spouse of 12 years, together 22 years years, lives with stepdaughter and 2 cats Education: High School Graduate and Associate Degree Employment: Not employed Social Support: Family. Legal: None Marital: 1 son, 2 grand children Mental Status Examination General Appearance: unkempt, disheveled, ds/not appear stated age, hospital scubs/clothing Build: thin Demeanor: mistrustful, withdrawn, preoccupied, guarded Eye Contact: intense Activity: slowed Behavior: cooperative, loss of interests, anhedonia, withdrawn Speech: slow, low in volume Mood: depressed Affect: flat Thought Process: logical/linear, depressed, slow Thought Content (Delusions): persecutory, paranoia, delusions Thought Content (Other): preoccupied, guarded Thought Content (Aggressive): none reported Perception (Hallucinations): none reported Perception (Other): none reported Cognition (Impairment of): none reported Cognition(Intelligence Est.): borderline Oriented: Alert, Oriented times three Insight: poor Judgment: Poor Psychosis: Denies (Schizophrenia Disorder) Diagnoses Schizophrenia Disorder Tobacco Use Disorder A-FIB/CHADSVASC A-FIB History Current/History of A-Fib/PAF?: No Assessment Patient is a 49 year old , Unemployed, Domiciled, female who was brought to the ED by her spouse, reporting that she had stopped taking her medications and was decompensating, stopped eating and drinking. Patient has had prior admissions where she presents similarly, she is started on an antipsychotic and this psychosis eventually resolves but the delusion of the Holy Spirit is a fixed delusion. She presents as withdrawn, guarded and delusi onal stating " I am here because the Holy Spirit is inside of me. " She has lost weight since her last visit. We will start Haldol 10 mg at HS which helped her tremendously on her last admission. Initial Treatment Plan 1. Patient was admitted on a [9.39] status. 2. Complete history was obtained. 3. With patients permission, family will be contacted and database will be ex panded. 4. Patients medication regimen will be reviewed and changed accordingly. 5. Patient will be provided with protected environment. 6. Patient will be treated with individual, group, and milieu therapies. 7. Patient will receive supportive psych-education. 8. Discharge planning will commence immediately. 9. Outpatient follow-up treatment will be strongly recommended. 10. The initial treatment plan will focus initially on: * Depression. * poor coping * altered thoughts ESTIMATED LENGTH OF STAY: 7-10 DAYS. TIME SPENT COUNSELING AND COORDINATING INITIAL CARE: 60 minutes. Vital Signs Vital Signs Date Time Temp Pulse Resp B/P (MAP) Pulse Ox O2 Delivery O2 Flow Rate FiO2 03/07/20 08:27 Room Air 03/07/20 07:07 97.2 98 14 149/83 (105) 96 Laboratory Data 24H Labs Laboratory Tests 2 03/06/20 15:03: Nucleated Red Blood Cells % (auto) 0.0 03/06/20 18:36: Urine Opiates Screen NEGATIVE, Urine Methadone Screen NEGATIVE, Urine Barbiturates Screen NEGATIVE, Urine Phencyclidine Screen NEGATIVE, Urine Amphetamines Screen NEGATIVE, Urine Benzodiazepines Screen NEGATIVE, Urine Cocaine Metabolite Screen NEGATIVE, Urine Cannabinoids Screen NEGATIVE CBC/BMP Laboratory Tests 03/06/20 15:03 Medications Scheduled Haloperidol (Haloperidol) 10 Mg Tablet, 10 MG PO BID for Hallucinations Scheduled PRN Albuterol Sulfate (Proair Hfa) 8.5 Gm Hfa.aer.ad, 2 PUFF INH Q4H PRN for SHORT NESS OF BREATH, (Reported) Benztropine Mesylate (Benztropine Mesylate) 0.5 Mg Tablet, 0.5 MG PO BID PRN for EPS Allergies Coded Allergies: metronidazole (Verified Allergy, Severe, tongue swelling, throat tightness, 10/05/18) Sulfa (Sulfonamide Antibiotics) (Verified Allergy, Intermediate, hives, 10/05/18) Contrast Media (Verified Allergy, Unknown, 05/21/07) Penicillins (Verified Allergy, Unknown, 10/05/18) metoclopramide (Verified Allergy, Unknown, 10/05/18) prochlorperazine (Verified Allergy, Unknown, 10/05/18) EVONNE GARDUNO NP Mar 07, 2020 14:22
[2020-03-07 18:02] VITALS: BP 146/63
--- NOTE | 2020-03-07 18:21 | HPEPDOC ---
[facility] Medical History & Physical Date of Admission Mar 07, 2020 Date of Service: Mar 07, 2020 History and Physical CHIEF COMPLAINT: Medical H&P for [facility] HISTORY OF PRESENT ILLNESS: Patient is a 49 -year-old , female, who had stopped talking her medications after she was discharged roughly around No vember. She has had four admissions to [facility] in the past few months, most recently in December. On this admission, her apparently dropped her off because she again began to decompensate and stopped eating and drinking because she became delusional with the Holy Spirits and Evils Spirits inside her. Patient was seen and examined in examination room. Patient voiced no medical complaints. She denies chest pain, shortness of breath, abdominal pain, nausea, vomiting or diarrhea. PAST MEDICAL HISTORY: Pysch history including schizophrenia ALLERGIES: Please see below. REVIEW OF SYSTEMS: Negative except as per HPI HOME MEDICATIONS: Please see below. PHYSICAL EXAMINATION: VITAL SIGNS: see below General: NAD, sitting comfortably in chair HEENT: NC/AT, EOMI Lungs: CTA B/L Heart: +S1S2, RRR Abd: soft, NT, +BS Ext: no edema LABORATORY DATA: See below. MICROBIOLOGY: Please see below. A/P: 49 yo female with pysch history of schizophrenia and several hospital admissions recently discharged in December, returns for delusions, brought in by husbands. #Psych - as per primary team Thank you for this consultation. Please re-consult as needed. Vital Signs Vital Signs Date Time Temp Pulse Resp B/P (MAP) Pulse Ox O2 Delivery O2 Flow Rate FiO2 03/07/20 18:02 98.7 100 15 146/63 (90) 96 Room Air Laboratory Data Labs 24H Laboratory Tests 2 03/06/20 18:36: Urine Opiates Screen NEGATIVE, Urine Methadone Screen NEGATIVE, Urine Barbiturates Screen NEGATIVE, Urine Phencyclidine Screen NEGATIVE, Urine Amphetamines Screen NEGATIVE, Urine Benzodiazepines Screen NEGATIVE, Urine Cocaine Metabolite Screen NEGATIVE, Urine Cannabinoids Screen NEGATIVE Microbiology Microbiology 03/06/20 Respiratory Virus Panel (PCR) (EVAN) - Final, Complete Home Medications Scheduled Haloperidol (Haloperidol) 10 Mg Tablet, 10 MG PO BID for Hallucinations Scheduled PRN Albuterol Sulfate (Proair Hfa) 8.5 Gm Hfa.aer.ad, 2 PUFF INH Q4H PRN for SHORTNESS OF BREATH Benztropine Mesylate (Benztropine Mesylate) 0.5 Mg Tablet, 0.5 MG PO BID PRN for EPS Allergies Coded Allergies: metronidazole (Verified Allergy, Severe, tongue swelling, throat tightness, 10/05/18) Sulfa (Sulfonamide Antibiotics) (Verified Allergy, Intermediate, hives, 10/05/18) Contrast Media (Verified Allergy, Unknown, 05/21/07) Penicillins (Verified Allergy, Unknown, 10/05/18) metoclopramide (Verified Allergy, Unknown, 10/05/18) prochlorperazine (Verified Allergy, Unknown, 10/05/18) A-FIB/CHADSVASC A-FIB History Current/History of A-Fib/PAF?: No FABIAN GREENE MD Mar 07, 2020 18:21
[2020-03-08 06:57] VITALS: BP 131/67
[2020-03-08] MEDS: SERTRALINE HCL 25 MG TABLET PO SCH (10:17)
[2020-03-08 16:31] VITALS: BP 120/57
[2020-03-09 06:29] VITALS: BP 125/58
[2020-03-09] MEDS: SERTRALINE HCL 25 MG TABLET PO SCH (08:34)
[2020-03-09 16:15] VITALS: BP 116/58
[2020-03-10 07:07] VITALS: BP 131/68
[2020-03-10] MEDS: SERTRALINE HCL 25 MG TABLET PO SCH (08:32)
--- NOTE | 2020-03-10 10:12 | MHIPN ---
[facility] PROGRESS NOTE DATE OF EVALUATION: 03/08/2020 The patient was seen in her room, she was laying in bed, took a little bit of time to arouse her, but she was cooperative, but very quick to say that she felt very tired. The patient apparently has been on one-to-one observation level because apparently she had stopped eating and drinking much, that was the reason for admission and she remains weak and it is hard for her to even get up to go the bathroom and needs assistance from staff for that. MENTAL STATUS EXAMINATION: I am not able to do a full mental status exam since the patient basically just indicated that she was very tired. She did not voice any suicidal or homicidal ideations. The patient basically was laying in bed, she was sleeping when I entered the room, and she really did not even look up at me, but she was alert and was able to just tell me that she was tired but that was the extent of it. DIAGNOSIS: Schizophrenia. TREATMENT PLAN: At this point, we will continue to monitor the patient, to continue to titrate her medications as indicated. Apparently, the patient had stopped eating and drinking due to her delusions.
[2020-03-10] MEDS: LORazepam 0.5 MG TAB PO SCH ×2 (11:23→23:02)
[2020-03-10] MEDS: PILL CUTTER 1 EACH XX PRN (11:23)
--- NOTE | 2020-03-10 16:13 | MHIPNPDOC ---
[facility] Progress Note Progress Note DATE OF SERVICE: 03/10/20 Chief Complaint: "It's the same thing, I stopped eating and drinking because the Holy Spirit is inside me." HISTORY OF THE PRESENT ILLNESS: Patient is a 49 -year-old , female, who had stopped talking her medications after she was discharged roughly around December. He apparently dropped her off because she again began to decompensate and stopped eating and drinking because she became delusional with the Holy Spirits and Evils Spirits inside her. VITAL SIGNS: See below. CURRENT MEDICATIONS: See below. MENTAL STATUS EXAMINATION: Patient is a 49 -year-old , female, who had stopped talking her medic ations after she was discharged roughly around December. He apparently dropped her off because she again began to decompensate and stopped eating and drinking because she became delusional with the Holy Spirits and Evils Spirits inside her. Speech: Is fluid, conversant, normal rate, tone and volume Language skills are intact Thought processes including: mildly linear, loose associations with regards to the Spirits Thought content: denies depression and anxiety. Denies suicidal/homicidal ideation, planning or intent. Abstract reasoning, and computation: fair Description of associations: denies, but she talks about the Evil Spirits and Holy spirits that stop her from eating Description of abnormal or psychotic thoughts: denies, greatly decreased nutr itional intake due to the Holy Spirit Judgment: poor Insight: poor Orientation: alert and oriented to person, place, time and situation Recent and remote memory: intact Attention span and concentration: poor Language: fair Fund of knowledge: average Mood: Depressed Mood Affect: Flat DIAGNOSES: Schizophrenia ASSESSMENT: Patient found in her room, lying in an awkward position, she makes poor eye contact. She looks very tired and weak. When asked about her food intake she states that she is eating some. Patient denies depression, but appears to be depressed and flat, withdrawn and guarded. In the past, much of this guardedness was because of her delusions as it is today. She only states that much her inability to participate in the treatment management is due to her delusions about the Evil/Holy Spirits. Patient appears much older than her stated age, she does not attend to her ADLS and is on close observations due to her mild/moderate weakness. Have reinforced with patient to take in nutrition and hydration. She appears depressed, with no anxiety, she denies suicidality/homicidality and remains delusional and withdrawn and guarded. MANAGEMENT PLAN: Continue close observations and food intake. Continue all medications as prescribed, added Ativan 0.25 mg for anxiety/Ativan challenge due to possible Catatonic symptoms. We will discharge when she is stable. She may consider shelter hospitalization if it is necessary. TIME SPENT: 25 minutes. Vital Signs Vital Signs Date Time Temp Pulse Resp B/P (MAP) Pulse Ox O2 Delivery O2 Flow Rate FiO2 03/10/20 07:07 98.1 77 14 131/68 (89) 94 Room Air Current Medications Current Medications Medications (Trade) Dose Ordered Sig/Moe Route PRN Reason Start Time Stop Time Status Last Admin Dose Admin Acetaminophen (Tylenol Tab) 650 mg Q6HP PRN PO HEADACHE or DISCOMFORT 03/06/20 21:45 Al Hydrox/Mg Hydrox/Simethicone (Mylanta) 30 ml Q4HP PRN PO HEARTBURN/INDIGESTION 03/06/20 21:45 Albuterol Sulfate (Proventil, Ventolin Hfa) 2 puff Q4H PRN INH SHORTNESS OF BREATH 03/06/20 21:45 Benztropine Mesylate (Cogentin) 0.5 mg BID PRN PO EPS 03/06/20 21:45 Haloperidol (Haldol) 10 mg QHS PO 03/06/20 21:00 03/09/20 20:58 Home Med (Med Rec Complete!) ASDIRECTED XX 03/06/20 20:00 03/06/20 20:01 DC Lorazepam (Ativan) 0.25 mg BID PO 03/10/20 09:30 03/10/20 11:23 Magnesium Hydroxide (Milk Of Magnesia) 30 ml DAILYPRN PRN PO CONSTIPATION 03/06/20 21:45 Sertraline HCl (Zoloft) 25 mg DAILY PO 03/08/20 09:00 03/10/20 08:32 Allergies Coded Allergies: metronidazole (Verified Allergy, Severe, tongue swelling, throat tightness, 10/05/18) Sulfa (Sulfonamide Antibiotics) (Verified Allergy, Intermediate, hives, 10/05/18) Contrast Media (Verified Allergy, Unknown, 05/21/07) Penicillins (Verified Allergy, Unknown, 10/05/18) metoclopramide (Verified Allergy, Unknown, 10/05/18) prochlorperazine (Verified Allergy, Unknown, 10/05/18) EVONNE GARDUNO NP Mar 10, 2020 16:13
[2020-03-10 18:02] VITALS: BP 120/58
[2020-03-11 06:32] VITALS: BP 117/59
[2020-03-11] MEDS: PILL CUTTER 1 EACH XX PRN ×2 (09:48→21:43)
[2020-03-11] MEDS: SERTRALINE HCL 25 MG TABLET PO SCH (09:48)
[2020-03-11] MEDS: LORazepam 0.5 MG TAB PO SCH ×2 (09:48→21:43)
--- NOTE | 2020-03-11 16:39 | MHIPNPDOC ---
[facility] Progress Note Progress Note DATE OF SERVICE: 03/11/20 Chief Complaint: "It's the same thing, I stopped eating and drinking because the Holy Spirit is inside me." HISTORY OF THE PRESENT ILLNESS: Patient is a 49 -year-old , female, who had stopped talking her medications after she was discharged roughly around December. He apparently dropped her off because she again began to decompensate and stopped eating and drinking because she became delusional with the Holy Spirits and Evils Spirits inside her. According to her , patient had been taking her medications and was eating and drinking was mentally doing well and they became concerned when she suddenly wasn't eating and wasn't moving a lot. Spouse states she was taking her medications at home and she was doing well but all of a sudden this happened. He was at times not giving her the night time dose because she was more lethargic. VITAL SIGNS: See below. CURRENT MEDICATIONS: See below. MENTAL STATUS EXAMINATION: Patient is a 49 -year-old , female, who had stopped talking her medications after she was discharged roughly around December. Her apparently dropped her off because she again began to decompensate and stopped eating and drinking. On admission she reports to me that she can't eat because of the Holy Spirits and Evils Spirits inside her. She is dressed in hospital scrubs, she was disheveled but at the time of the interview, her aide had helped her shower. She needed much direction and assistance due to her weakness. Speech: Is low tone and volume Language skills are intact Thought processes including: mildly linear, loose associations with regards to the Spirits Thought content: denies depression and anxiety. Denies suicidal/homicidal ideation, planning or intent. Abstract reasoning, and computation: fair Description of associations: denies, but she talks about the Evil Spirits and Holy spirits that stop her from eating Description of abnormal or psychotic thoughts: denies, greatly decreased nutritional intake due to the Holy Spirit Judgment: poor Insight: poor Orientation: alert and oriented to person, place, time and situation Recent and remote memory: intact Attention span and concentration: poor Language: fair Fund of knowledge: average Mood: Depressed Mood/ Delusional thinking Affect: Drowsy/ Flat DIAGNOSES: Schizophrenia ASSESSMENT: Patient found in her room, lying in bed very listless and tired. Patient has been difficult to encourage to eat. Remains delusional and paranoid about eating and drinking. Reinforced with patient that her discharge is pending improving her nutritional intake and hydration. She has very little to add to her interview, doses off many times but states that her inability to eat is due to the Holy Spirits. Patient cannot carry much of a conversation, appe ars to be hesitant to respond and may be having internal voices, although she has stated no that she doesn't hear voices. On her last admission, she had reported that the Spirits are inside her and that they stop her from eating. MANAGEMENT PLAN: Continue close observations and food intake. Continue all medications as prescribed, Ativan discontinued after 03/12/20 0900 and Haldol changed to 5 mg twice daily. TIME SPENT: 25 minutes. Vital Signs Vital Signs Date Time Temp Pulse Resp B/P (MAP) Pulse Ox O2 Delivery O2 Flow Rate FiO2 03/11/20 09:46 Room Air 03/11/20 06:32 97.6 88 16 117/59 (78 95 Current Medications Current Medications Medications (Trade) Dose Ordered Sig/Moe Route PRN Reason Start Time Stop Time Status Last Admin Dose Admin Acetaminophen (Tylenol Tab) 650 mg Q6HP PRN PO HEADACHE or DISCOMFORT 03/06/20 21:45 Al Hydrox/Mg Hydrox/Simethicone (Mylanta) 30 ml Q4HP PRN PO HEARTBURN/INDIGESTION 03/06/20 21:45 Albuterol Sulfate (Proventil, Ventolin Hfa) 2 puff Q4H PRN INH SHORTNESS OF BREATH 03/06/20 21:45 Benztropine Mesylate (Cogentin) 0.5 mg BID PRN PO EPS 03/06/20 21:45 Haloperidol (Haldol) 10 mg QHS PO 03/06/20 21:00 03/10/20 23:01 Home Med (Med Rec Complete!) ASDIRECTED XX 03/06/20 20:00 03/06/20 20:01 DC Lorazepam (Ativan) 0.25 mg BID PO 03/10/20 09:30 03/11/20 09:48 Magnesium Hydroxide (Milk Of Magnesia) 30 ml DAILYPRN PRN PO CONSTIPATION 03/06/20 21:45 Sertraline HCl (Zoloft) 25 mg DAILY PO 03/08/20 09:00 03/11/20 09:48 Allergies Coded Allergies: metronidazole (Verified Allergy, Severe, tongue swelling, throat tightness, 10/05/18) Sulfa (Sulfonamide Antibiotics) (Verified Allergy, Intermediate, hives, 10/05/18) Contrast Media (Verified Allergy, Unknown, 05/21/07) Penicillins (Verified Allergy, Unknown, 10/05/18) metoclopramide (Verified Allergy, Unknown, 10/05/18) prochlorperazine (Verified Allergy, Unknown, 10/05/18) EVONNE GARDUNO NP Mar 11, 2020 16:16
[2020-03-11 17:00] VITALS: BP 122/75
[2020-03-12 06:41] VITALS: BP 135/81
[2020-03-12] MEDS: haloperidoL 5 MG TAB PO SCH ×2 (09:13→21:01)
[2020-03-12] MEDS: SERTRALINE HCL 25 MG TABLET PO SCH (09:13)
[2020-03-12] MEDS: LORazepam 0.5 MG TAB PO SCH (09:13)
[2020-03-12 10:39] LABS: HEMATOCRIT 43.7 % (36.0-47.0); HEMOGLOBIN 14.3 g/dl (12.0-15.5); MEAN CORPUSCULAR HEMOGLOBIN 31.4 pg (27.0-33.0); MEAN CORPUSCULAR HGB CONC 32.7 g/dl (32.0-36.5); PLATELET COUNT, AUTOMATED 327 10^3/uL (150-450); RED BLOOD COUNT 4.55 10^6/uL (4.00-5.40); WHITE BLOOD COUNT 11.6 10^3/uL (4.0-10.0)
[2020-03-12 11:22] LABS: ALBUMIN 3.3 GM/DL (3.2-5.2); ALT/SGPT 30 U/L (12-78); BILIRUBIN,TOTAL 0.5 MG/DL (0.2-1.0); BLOOD UREA NITROGEN 14 MG/DL (7-18); CALCIUM LEVEL 9.6 MG/DL (8.5-10.1); CARBON DIOXIDE LEVEL 29 MEQ/L (21-32); CHLORIDE LEVEL 107 MEQ/L (98-107); CREATININE FOR GFR 0.81 MG/DL (0.55-1.30); GLOMERULAR FILTRATION RATE > 60.0 (>58); GLUCOSE, FASTING 175 MG/DL (70-100); POTASSIUM SERUM 3.9 MEQ/L (3.5-5.1); SODIUM LEVEL 143 MEQ/L (136-145)
--- NOTE | 2020-03-12 12:17 | MHIPN ---
[facility] PROGRESS NOTE DATE: 03/09/2020 HISTORY OF PRESENT ILLNESS: The patient today continues to remain in bed with very little motivation to do anything. MENTAL STATUS EXAM: The patient just stated that she was not good and other than that I was not able to get much information therefore I am not really able to do a Mental Status Exam. DIAGNOSIS: Schizophrenia. TREATMENT PLAN: We will continue to monitor the patient. We will continue her on a 1:1 observation level and we will continue to titrate her medications as indicated.
--- NOTE | 2020-03-12 13:54 | MHIPNPDOC ---
[facility] Progress Note Progress Note DATE OF SERVICE: 03/12/20 Chief Complaint: "It's the same thing, I stopped eating and drinking because the Holy Spirit is inside me." HISTORY OF THE PRESENT ILLNESS: Patient is a 49 -year-old , female, stopped eating and stopped drinking. He apparently dropped her off because she again began to decompensate and stopped eating and drinking because she became delusional with the Holy Spirits and Evils Spirits inside her. According to her , patient had been taking her medications but he was selective with the dosages. Patient was eating and drinking was mentally doing well and they became concerned when she suddenly wasn't eating and wasn't moving a lot. Spouse states she was taking her medications at home and she was doing well but all of a sudden this happened. He was at times not giving her the night time dose because she was more lethargic. VITAL SIGNS: See below. CURRENT MEDICATIONS: See below. MENTAL STATUS EXAMINATION: Patient is a 49 -year-old , female, who had stopped eating and drinking. On admission she reports to me that she can't eat because of the Holy Spirits and Evils Spirits inside her. She is dressed in hospital scrubs, she was disheveled but at the time of the interview, her aide had helped her shower. She needed much direction and assistance due to her weakness. She has an aide with her due to her weakness. Speech: Is low tone and volume, has no poor speech Language skills are intact Thought processes including: mildly linear, loose associations with regards to the Spirits Thought content: denies depression and anxiety. Denies suicidal/homicidal ideation, planning or intent. Abstract reasoning, and computation: fair Description of associations: denies, but she talks about the Evil Spirits and Holy spirits that stop her from eating Description of abnormal or psychotic thoughts: denies, greatly decreased nutritional intake due to the Holy Spirit Judgment: poor Insight: poor Orientation: alert and oriented to person, place, time and situation Recent and remote memory: intact Attention span and concentration: poor Language: fair Fund of knowledge: average Mood: Depressed Mood/ Delusional thinking Affect: Drowsy/ Flat/Lethargic DIAGNOSES: Schizophrenia ASSESSMENT: Patient found in her room, lying in bed very listless and tired. Patient has been difficult to engage her in conversation, she easily returns to sleep. According to the aide, patient had some improvement in her hydration but continued to have little nutrition. Due to her weakness she is disengage in the interview. She denied that she had depression and anxiety and hesitated to answer about delusional thoughts. She did affirm at the end of the interview that she continues to not eat because of her delusions about the Holy Spirit. MANAGEMENT PLAN: Continue close observations and food intake. Continue all medications as prescribed, Ativan discontinued after 03/12/20 0900 and Haldol changed to 5 mg twice daily. CMC, CMP and UA ordered. We will consult with PT/OT and Hospitalist for her current presentation. TIME SPENT: 25 minutes. Vital Signs Vital Signs Date Time Temp Pulse Resp B/P (MAP) Pulse Ox O2 Delivery O2 Flow Rate FiO2 03/12/20 07:57 Room Air 03/12/20 06:41 98.5 95 18 135/81 (99) 93 Laboratory Data 24H Labs Laboratory Tests 2 03/12/20 10:28: Nucleated Red Blood Cells % (auto) 0.0, Anion Gap 7L, Glomerular Filtration Rate > 60.0, Calcium Level 9.6, Total Bilirubin 0.5, Aspartate Amino Transf (AST/SGOT) 61H, Alanine Aminotransferase (ALT/SGPT) 30, Alkaline Phosphatase 76, Total Protein 6.0L, Albumin 3.3, Albumin/Globulin Ratio 1.2 CBC/BMP Laboratory Tests 03/12/20 10:28 Current Medications Current Medications Medications (Trade) Dose Ordered Sig/Moe Route PRN Reason Start Time Stop Time Status Last Admin Dose Admin Acetaminophen (Tylenol Tab) 650 mg Q6HP PRN PO HEADACHE or DISCOMFORT 03/06/20 21:45 Al Hydrox/Mg Hydrox/Simethicone (Mylanta) 30 ml Q4HP PRN PO HEARTBURN/INDIGESTION 03/06/20 21:45 Albuterol Sulfate (Proventil, Ventolin Hfa) 2 puff Q4H PRN INH SHORTNESS OF BREATH 03/06/20 21:45 Benztropine Mesylate (Cogentin) 0.5 mg BID PRN PO EPS 03/06/20 21:45 Haloperidol (Haldol) 5 mg BID PO 03/12/20 09:00 03/12/20 09:13 Haloperidol (Haldol) 10 mg QHS PO 03/06/20 21:00 03/11/20 22:00 DC 03/11/20 21:43 Home Med (Med Rec Complete!) ASDIRECTED XX 03/06/20 20:00 03/06/20 20:01 DC Lorazepam (Ativan) 0.25 mg BID PO 03/10/20 09:30 03/12/20 12:00 DC 03/12/20 09:13 Magnesium Hydroxide (Milk Of Magnesia) 30 ml DAILYPRN PRN PO CONSTIPATION 03/06/20 21:45 Sertraline HCl (Zoloft) 25 mg DAILY PO 03/08/20 09:00 03/12/20 09:13 Allergies Coded Allergies: metronidazole (Verified Allergy, Severe, tongue swelling, throat tightness, 10/05/18) Sulfa (Sulfonamide Antibiotics) (Verified Allergy, Intermediate, hives, 10/05/18) Contrast Media (Verified Allergy, Unknown, 05/21/07) Penicillins (Verified Allergy, Unknown, 10/05/18) metoclopramide (Verified Allergy, Unknown, 10/05/18) prochlorperazine (Verified Allergy, Unknown, 10/05/18) EVONNE GARDUNO NP Mar 12, 2020 13:54
--- NOTE | 2020-03-12 15:00 | HPEPDOC ---
[facility] Medical History & Physical Date of Admission Mar 12, 2020 Date of Service: Mar 12, 2020 History and Physical Chief complaint: Consulted by psychiatry for weakness / leukocytosis History of present illness: Patient is a 49-year-old female who [facility] after she had reported worsening feelings. Patient reported that she has the spirit within her. Patient was admitted to the inpatient mental health unit under the care of psychiatry on 03/06/2020. Hospital service was initially consulted for medical screening evaluation on 03/07/2020. Throughout the duration of patients stay at the hospital. She has had minimal activity and minimal intake of food. Hospital service was consulted again after patient was mostly bedbound. Upon evaluation of patient with nursing staff at the bedside. Is confirmed that she has eaten at least 50% of her breakfast tray has consumed and continues to consume Ensure drinks. Patient has been working with physical therapy today and will have occupational therapy follow them tomorrow. Patient denies any nausea, vomiting, abdominal pain, diarrhea, or urinary discomfort. They report that theyre appetite is poor. Patient denies any chest pain, shortness of breath, palpitations, cough. Review the medical record does not reveal any evidence of fevers. 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 shunt placement when she was 17 years old for hydrocephalus Drain placement for further evaluation after that point Bilateral cataract surgery Retinal detachment repair Endometriosis/ovarian cyst resection Allergies: See below Medications: See below Family History: - No history of malignancies Social History: - Denies the use of alcohol, tobacco or illicit drugs - Lives with - Occupation; unemployed Review of Systems: 10 point review of systems complete, all negative otherwise stated in HPI Physical exam: - Vitals: BP [135/81], HR [95], RR [18], Sat [93%RA], Temp [98.5F] - General: Lying in bed, No acute distress, Speaking in full sentences, AAOx3 - HEENT: NC, AT, PERRLA - CVS: RRR, +S1S2 - Lungs: Fair air entry bilaterally, No appreciable wheezing / rales / rhonchi - Abdomen: Soft, Non-distended, Non-tender - Extremities: No lower extremity edema, No calf tenderness - Neuro: No focal motor or sensory deficit - Skin: No visible rashes Labs: See below Imaging: See below EKG: See below Assessment and Plan: Weakness / Poor oral intake - possibly 2/2 psychiatric illness, possibly 2/2 medications, will r/o infectious etiology - No focal neurologic deficits noted - TSH noted on admission; wnl - Urine drug screen on admission negative - Patient has been started on PT and OT - See below Leukocytosis - Hemodynamically stable and afebrile - Respiratory panel 03/06: Negative - Will check blood cultures / lactic acid / CBC differential / Procalcitonin / CRP / CXR / UA - Will straight catheterization for urine sample if required - Will start antibiotics if indicated Elevated AST - Will check hepatitis panel Anxiety / Depression / Delusional thoughts - Patient has been admitted to the inpatient mental health unit under the care of psychiatry - Currently patient is cooperative and answering questions appropriately - Management as per psychiatry DVT prophylaxis - Will c/w ambulation - c/w PT and OT Female environmental science instructor was present throughout the duration of this history and physical examination Thank you for this consultation; Hospital service will now sign off, please re- consult as needed Vital Signs Vital Signs Date Time Temp Pulse Resp B/P (MAP) Pulse Ox O2 Delivery O2 Flow Rate FiO2 03/12/20 07:57 Room Air 03/12/20 06:41 98.5 95 18 135/81 (99) 93 Laboratory Data Labs 24H Laboratory Tests 2 03/12/20 10:28: Nucleated Red Blood Cells % (auto) 0.0, Anion Gap 7L, Glomerular Filtration Rate > 60.0, Calcium Level 9.6, Total Bilirubin 0.5, Aspartate Amino Transf (AST/SGOT) 61H, Alanine Aminotransferase (ALT/SGPT) 30, Alkaline Phosphatase 76, Total Protein 6.0L, Albumin 3.3, Albumin/Globulin Ratio 1.2 CBC/BMP Laboratory Tests 03/12/20 10:28 Microbiology Microbiology 03/06/20 Respiratory Virus Panel (PCR) (EVAN) - Final, Complete Home Medications Scheduled Haloperidol (Haloperidol) 10 Mg Tablet, 10 MG PO BID for Hallucinations Scheduled PRN Albuterol Sulfate (Proair Hfa) 8.5 Gm Hfa.aer.ad, 2 PUFF INH Q4H PRN for S HORTNESS OF BREATH Benztropine Mesylate (Benztropine Mesylate) 0.5 Mg Tablet, 0.5 MG PO BID PRN for EPS Allergies Coded Allergies: metronidazole (Verified Allergy, Severe, tongue swelling, throat tightness, 10/05/18) Sulfa (Sulfonamide Antibiotics) (Verified Allergy, Intermediate, hives, 10/05/18) Contrast Media (Verified Allergy, Unknown, 05/21/07) Penicillins (Verified Allergy, Unknown, 10/05/18) metoclopramide (Verified Allergy, Unknown, 10/05/18) prochlorperazine (Verified Allergy, Unknown, 10/05/18) JAMES LOZA MD Mar 12, 2020 15:00
[2020-03-12 15:47] LABS: BASO # 0.1 10^3/uL (0.0-0.2); BASO % 0.4 % (0.0-1.0); EOS # 0.2 10^3/uL (0.0-0.5); EOS % 1.4 % (0.0-3.0); LYMPH # 1.9 10^3/uL (1.5-5.0); LYMPH % 16.2 % (24.0-44.0); MONO # 1.4 10^3/uL (0.0-0.8); MONO % 11.5 % (0.0-5.0); NEUTROPHILS # 8.3 10^3/uL (1.5-8.5); NEUTROPHILS % 70.2 % (36.0-66.0)
[2020-03-12 16:09] LABS: C REACTIVE PROTEIN QUANTITATIV 3.13 MG/DL (0.00-0.30)
--- NOTE | 2020-03-12 16:11 | REP ---
INDICATION: Leukocytosis. COMPARISON: None. TECHNIQUE: SINGLE PORTABLE AP VIEW OF THE CHEST WAS PERFORMED. FINDINGS: THERE IS NO ACUTE INFILTRATE OR PULMONARY EDEMA. LUNGS ARE CLEAR. HEART IS NOT SIGNIFICANTLY ENLARGED. MEDIASTINAL SILHOUETTE IS UNREMARKABLE. THE VISUALIZED OSSEOUS STRUCTURES ARE INTACT. Right-sided RESIDENT SURGEON shunt tubing is present. IMPRESSION: NO ACUTE PULMONARY DISEASE. <Electronically signed by Felton Graves > 03/12/20 1526
[2020-03-12 16:12] LABS: ALBUMIN 3.4 GM/DL (3.2-5.2); BILIRUBIN,DIRECT 0.1 MG/DL (0.0-0.2); BILIRUBIN,TOTAL 0.4 MG/DL (0.2-1.0); TOTAL PROTEIN 6.1 GM/DL (6.4-8.2)
[2020-03-12 16:55] LABS: HEPATITIS B SURFACE ANTIGEN NEGATIVE (NEGATIVE)
[2020-03-12 17:22] LABS: HEPATITIS C VIRUS ABY INDEX < 0.0 INDEX (<0.8)
[2020-03-12 17:23] LABS: HEPATITIS B CORE ANTIBODY IGM NEGATIVE (NEGATIVE)
[2020-03-12 17:26] LABS: HEPATITIS A ANTIBODY IGM NEGATIVE (NEGATIVE)
[2020-03-12 17:59] VITALS: BP 125/74
[2020-03-12] MEDS ORDERED: LevoFLOXacin 750 MG TABLET PO SCH (18:00)
[2020-03-13] MEDS: SERTRALINE HCL 25 MG TABLET PO SCH (09:00)
[2020-03-13] MEDS: haloperidoL 5 MG TAB PO SCH (09:00)
--- NOTE | 2020-03-13 09:42 | MHDSPDOC ---
[facility] IM Discharge Summary Discharge Summary ASSESSMENT: Patient found in her room, lying in bed very listless and tired. Patient has been difficult to engage her in conversation, she easily returns to sleep. According to the aide, patient had some improvement in her hydration but continued to have little nutrition. Due to her weakness she is disengage in the interview. She denied that she had depression and anxiety and hesitated to answer about delusional thoughts. She did affirm at the end of the interview that she continues to not eat because of her delusions about the Holy Spirit. MANAGEMENT PLAN: Continue close observations and food intake. Continue all medications as prescribed, Ativan discontinued after 03/12/20 0900 and Haldol changed to 5 mg twice daily. CMC, CMP and UA ordered. We will consult with PT/OT and Hospitalist for her current presentation. DATE OF ADMISSION: Mar 06, 2020 at 21:31 DATE OF DISCHARGE: Mar 13, 2020 at 0923 DISCHARGE DIAGNOSES: 1. 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 schizophrenia REASON FOR ADMISSION: Patient is a 49 -year-old , female, stopped eating and stopped drinking. He apparently dropped her off because she again began to decompensate and stopped eating and drinking because she became delusional with the Holy Spirits and Evils Spirits inside her. According to her , patient had been taking her medications but he was selective with the dosages. Patient was eating and drinking was mentally doing well and they became concerned when she suddenly wasn't eating and wasn't moving a lot. Spouse states she was taking her medications at home and she was doing well but all of a sudden this happened. He was at times not giving her the night time dose because she was more lethargic. CONSULTANTS INVOLVED: see hospitalist H&P and progress notes. Dr. Schneider consulted with 03/13 at 0910, will discharge patient to medical services TREATMENT AND PROGRESS ON THE UNIT : She was afforded the psychiatric modalities for IMHU but patient has not been able to participate in any therapy (group, mileu, and individual) due to poor medical condition. Per staff and assessments, patient's medical condition has been observed to worsen since admission to the floor. At this time, IMHU therapies are not appropriate until patient is stabilized medically. HOSPITAL COURSE: Patient is a 49 year old female who was brought to the emergency room by her , who was concerned she was experiencing a medical illness, as she had suddenly sopped taking her medications, eating and wasn't moving often. She was admitted on a 9.39 to [facility] due to inability to care of her basic needs. Since admission, she continues to decompensate medically despite receiving psychiatric medications and treatment. She is extremely weak, unable to walk without 2 person assistance, has vast difficulties sitting up, has had minimal intake and output and needs much encouragement to eat. She is unable to stay awake during staff interview, had to be awoken several times. She is minimally responsive verbally, needs to be asked questions twice at times before she is able to respond. Skin is dry, poor pallor. DISCHARGE ASSESSMENT: Per consult with Dr. Schneider, patient will be discharged to the medical floor due to her overwhelming medical concerns. At this time, it is difficult to assess patient's psychiatric condition due to her medical state - inability to answer, weakness, lethargy, minimal intake and output, inability to ambulate or sit up without assistance. Psychiatry will continue to follow treat patient on the medical floor MENTAL STATUS EXAMINATION: Patient is a 49 -year-old , female, who had stopped eating and drinking. On admission she reports to me that she can't eat because of the Holy Spirits and Evils Spirits inside her. She is dressed in hospital scrubs, she was disheveled but at the time of the interview.. She needed much direction and assistance due to her weakness. She has an aide with her due to her weakness. Speech: Is low tone and volume, has no poor speech Language skills are intact Thought processes including: mildly linear, loose associations with regards to the Spirits Thought content: denies depression and anxiety. Denies suicidal/homicidal id eation, planning or intent. Abstract reasoning, and computation: fair Description of associations: denies, but she talks about the Evil Spirits and Holy spirits that stop her from eating Description of abnormal or psychotic thoughts: denies, greatly decreased nutritional intake due to the Holy Spirit Judgment: impaired Insight: impaired Orientation: alert and oriented to person, place, time and situation Recent and remote memory: intact Attention span and concentration: poor Language: fair Fund of knowledge: average Mood: Depressed Mood/ Delusional thinking Affect: Drowsy/ Flat/Lethargy MEDICATIONS ON DISCHARGE: -continue all medications PLAN/FOLLOWUP ARRANGEMENTS: Will transfer to the medical floor The amount of time spent in the coordination of care for this patient was a pproximately 30 minutes. Vital Signs/I&Os Vital Signs Date Time Temp Pulse Resp B/P (MAP) Pulse Ox O2 Delivery O2 Flow Rate FiO2 03/12/20 17:59 98.3 98 18 125/74 (91) 97 03/12/20 07:57 Room Air I&O- Last 24 Hours up to 6 AM 03/13/20 06:00 Intake Total 895 ml Output Total 100 ml Balance 795 ml Laboratory Data Labs 24H Laboratory Tests 2 03/12/20 10:28: Nucleated Red Blood Cells % (auto) 0.0, Anion Gap 7L, Glomerular Filtration Rate > 60.0, Calcium Level 9.6, Total Bilirubin 0.5, Aspartate Amino Transf (AST/SGOT) 61H, Alanine Aminotransferase (ALT/SGPT) 30, Alkaline Phosphatase 76, Total Protein 6.0L, Albumin 3.3, Albumin/Globulin Ratio 1.2 03/12/20 14:55: Urine Color MICHAEL, Urine Appearance TURBIDH, Urine pH 7.0, Urine Specific [place] 1.017, Urine Protein 2+H, Urine Glucose (UA) NEGATIVE, Urine Ketones NEGATIVE, Urine Blood 3+H, Urine Nitrite POSITIVEH, Urine Bilirubin NEGATIVE, Urine Urobilinogen 4.0H, Urine Leukocyte Esterase 2+H, Urine WBC (Auto) 58H, Urine RBC (Auto) TNTCH, Urine Hyaline Casts (Auto) 0, Urine Bacteria (Auto) 2+H, Urine Squamous Epithelial Cells 1, Urine Mucus (Auto) SMALL, Urine Sperm (Auto) 03/12/20 15:29: Nucleated Red Blood Cells % (auto) 0.0, Total Bilirubin 0.4, Aspartate Amino Transf (AST/SGOT) 67H, Alanine Aminotransferase (ALT/SGPT) 33, Alkaline Phosp hatase 78, Total Protein 6.1L, Albumin 3.4, Albumin/Globulin Ratio 1.3, Immature Granulocyte % (Auto) 0.3, Neutrophils (%) (Auto) 70.2H, Lymphocytes (%) (Auto) 16.2L, Monocytes (%) (Auto) 11.5H, Eosinophils (%) (Auto) 1.4, Basophils (%) (Auto) 0.4, Neutrophils # (Auto) 8.3, Lymphocytes # (Auto) 1.9, Monocytes # (Auto) 1.4H, Eosinophils # (Auto) 0.2, Basophils # (Auto) 0.1, Lactic Acid Level 1.6, Direct Bilirubin 0.1, C-Reactive Protein, Quantitative 3.13H, Procalcitonin 0.06, Hepatitis A IgM Antibody NEGATIVE, Hepatitis B Surface Antigen NEGATIVE, Hepatitis B Core IgM Antibody NEGATIVE, Hepatitis C Antibody Index < 0.0 CBC/BMP Laboratory Tests 03/12/20 10:28 Microbiology Microbiology 03/12/20 Blood Culture, Received Pending 03/12/20 Blood Culture, Received Pending 03/12/20 Urine Culture, Received Pending 03/06/20 Respiratory Virus Panel (PCR) (EVAN) - Final, Complete Medications Scheduled Haloperidol (Haloperidol) 10 Mg Tablet, 10 MG PO BID for Hallucinations, #14 Scheduled PRN Albuterol Sulfate (Proair Hfa) 8.5 Gm Hfa.aer.ad, 2 PUFF INH Q4H PRN for SHORTNESS OF BREATH, (Reported) Benztropine Mesylate (Benztropine Mesylate) 0.5 Mg Tablet, 0.5 MG PO BID PRN for EPS, #14 Allergies Coded Allergies: metronidazole (Verified Allergy, Severe, tongue swelling, throat ti ghtness, 10/05/18) Sulfa (Sulfonamide Antibiotics) (Verified Allergy, Intermediate, hives, 10/05/18) Contrast Media (Verified Allergy, Unknown, 05/21/07) Penicillins (Verified Allergy, Unknown, 10/05/18) metoclopramide (Verified Allergy, Unknown, 10/05/18) prochlorperazine (Verified Allergy, Unknown, 10/05/18) EVONNE GARDUNO NP Mar 13, 2020 09:42
[2020-03-13 10:01] LABS: BASO # 0.1 10^3/uL (0.0-0.2); BASO % 0.4 % (0.0-1.0); EOS # 0.2 10^3/uL (0.0-0.5); EOS % 1.6 % (0.0-3.0); HEMATOCRIT 44.1 % (36.0-47.0); HEMOGLOBIN 14.3 g/dl (12.0-15.5); LYMPH # 2.2 10^3/uL (1.5-5.0); LYMPH % 19.2 % (24.0-44.0); MEAN CORPUSCULAR HEMOGLOBIN 30.9 pg (27.0-33.0); MEAN CORPUSCULAR HGB CONC 32.4 g/dl (32.0-36.5); MEAN CORPUSCULAR VOLUME 95.2 fl (80.0-96.0); MONO # 1.2 10^3/uL (0.0-0.8); NEUTROPHILS # 7.9 10^3/uL (1.5-8.5); NEUTROPHILS % 68.2 % (36.0-66.0); PLATELET COUNT, AUTOMATED 356 10^3/uL (150-450); RED BLOOD COUNT 4.63 10^6/uL (4.00-5.40); WHITE BLOOD COUNT 11.6 10^3/uL (4.0-10.0)
[2020-03-13 10:25] LABS: ALT/SGPT 30 U/L (12-78); BILIRUBIN,TOTAL 0.6 MG/DL (0.2-1.0); BLOOD UREA NITROGEN 12 MG/DL (7-18); C REACTIVE PROTEIN QUANTITATIV 6.95 MG/DL (0.00-0.30); CALCIUM LEVEL 9.7 MG/DL (8.5-10.1); CARBON DIOXIDE LEVEL 31 MEQ/L (21-32); CHLORIDE LEVEL 107 MEQ/L (98-107); CREATININE FOR GFR 0.83 MG/DL (0.55-1.30); GLOMERULAR FILTRATION RATE > 60.0 (>58); GLUCOSE, FASTING 142 MG/DL (70-100); MAGNESIUM LEVEL 2.4 MG/DL (1.8-2.4); POTASSIUM SERUM 4.2 MEQ/L (3.5-5.1); SODIUM LEVEL 143 MEQ/L (136-145); TOTAL PROTEIN 6.2 GM/DL (6.4-8.2)
[2020-03-13] MEDS ORDERED: LEVO750T13 PO (11:42)
[2020-03-13] MEDS ORDERED: SERT25TA21 PO (11:42)
[2020-03-13] MEDS ORDERED: HALO5TA PO (11:42)
== END 2020-03-13 14:05 | disposition short-term general hospital (02) | DRG 750 ==
LOC: M ED 13:26 → M ED INP 21:31 → M PSY 22:55
PROVIDERS: ADMIT Psychiatry & Neurology Psychiatry; ATTEND Psychiatry & Neurology Psychiatry
DX: F20.9 Schizophrenia, unspecified (principal); R53.1 Weakness; R63.0 Anorexia; R53.83 Other fatigue; F17.200 Nicotine dependence, unspecified, uncomplicated; R63.4 Abnormal weight loss; Z98.2 Presence of cerebrospinal fluid drainage device; Z88.0 Allergy status to penicillin; Z88.2 Allergy status to sulfonamides; Z88.8 Allergy status to other drugs, medicaments and biological substances; Z91.041 Radiographic dye allergy status; Z91.14 Patient's other noncompliance with medication regimen

== ENCOUNTER 2020-03-13 09:25 | Inpatient (IN) | payer OTHER ==
[~2020-03-13] VITALS: Ht 152.4 cm; Wt 43.5 kg
[~2020-03-13 09:25] MED LIST changes: +PROAAER10 INH
[2020-03-13] MEDS ORDERED: HALO5TA PO (11:42)
[2020-03-13] MEDS ORDERED: LEVO750T13 PO (11:42)
[2020-03-13] MEDS ORDERED: SERT25TA21 PO (11:42)
--- NOTE | 2020-03-13 12:09 | HPEPDOC ---
[facility] Medical History & Physical Date of Admission Mar 13, 2020 Date of Service: Mar 13, 2020 History and Physical Chief complaint: Weakness / UTI / Poor oral intake History of present illness: Patient is a 49-year-old female who presented to [facility] after she had reported worsening feelings. Patient reported that she has the spirit within her. Patient was admitted to the inpatient mental health unit under the care of psychiatry on 03/06/2020. Hospital service was initially consulted for medical screening evaluation on 03/07/2020. Throughout the duration of patients stay at the hospital. She has had minimal activity and minimal intake of food. Hospital service was consulted again after patient was mostly bedbound and then again on 03/14 to transfer patient to medical floor for what was reported as dehydration. Was called by psychiatry again to transfer the patient to medical surgical floor for rehydration. Currently patient does not appear to be significant change from yesterday. She denies any chest pain, shortness breath, palpitations, nausea, vomiting, abdominal pain, diarrhea, or urinary discomfort. Patient has not experience any fevers based on documentation. I have discussed the case with nurse practitioner for psychiatry. They will con tinue to follow patient while in the acute medical side. 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 shunt placement when she was 17 years old for hydrocephalus Drain placement for further evaluation after that point Bilateral cataract surgery Retinal detachment repair Endometriosis/ovarian cyst resection Allergies: See below Medications: See below Family History: - No history of malignancies Social History: - Denies the use of alcohol, tobacco or illicit drugs - Lives with - Occupation; unemployed Review of Systems: 10 point review of systems complete, all negative otherwise stated in HPI Physical exam: - Vitals: BP [135/81], HR [95], RR [18], Sat [93%RA], Temp [98.5F] - General: She is lying in bed, does not appear to be in any distress, is awake, alert and oriented 3 - HEENT: NC, AT, both pupils are equal and reactive - CVS: RRR, +S1S2 - Lungs: Fair air entry bilaterally, No appreciable wheezing / rales / rhonchi - Abdomen: Soft, remains nondistended, nontender - Extremities: No lower extremity edema, No calf tenderness - Neuro: No focal motor or sensory deficit - Skin: No visible rashes Labs: See below Imaging: See below EKG: See below Assessment and Plan: Weakness / Poor oral intake - possibly 2/2 psychiatric illness, possibly 2/2 medications, will r/o infectious etiology - No focal neurologic deficits noted - TSH noted on admission; wnl - Urine drug screen on admission negative - Will start IV fluid hydration - Will re-order PT and OT - See below Leukocytosis - likely 2/2 UTI - Hemodynamically stable and afebrile - Respiratory panel 03/06: Negative - Blood cultures 03/12: Pending - UA positive for UTI; Urine culture : Gram negative rods; cultures pending - Respiratory panel pending - PCT negative / Lactic acid negative - CXR 03/13: NO ACUTE PULMONARY DISEASE. - c/w Levofloxacin (Day #2) Elevated AST - Improving - Hepatitis panel negative Anxiety / Depression / Delusional thoughts - Patient has been admitted to the inpatient mental health unit under the care of psychiatry - Currently patient is cooperative and answering questions appropriately - Will consult psychiatry - Will have bed-side sitter DVT prophylaxis - Will start Lovenox Home Medications Scheduled Haloperidol (Haloperidol) 5 Mg Tablet, 5 MG PO BID for psychosis Levofloxacin (Levofloxacin) 750 Mg Tablet, 750 MG PO DAILY@1800 for infection Sertraline HCl (Sertraline HCl) 25 Mg Tablet, 25 MG PO DAILY for mood Scheduled PRN Albuterol Sulfate (Proair Hfa) 8.5 Gm Hfa.aer.ad, 2 PUFF INH Q4H PRN for SHORTNESS OF BREATH Benztropine Mesylate (Benztropine Mesylate) 0.5 Mg Tablet, 0.5 MG PO BID PRN for EPS Allergies Coded Allergies: metronidazole (Verified Allergy, Severe, tongue swelling, throat tightness, 10/05/18) Sulfa (Sulfonamide Antibiotics) (Verified Allergy, Intermediate, hives, 10/05/18) Contrast Media (Verified Allergy, Unknown, 05/21/07) Penicillins (Verified Allergy, Unknown, 10/05/18) metoclopramide (Verified Allergy, Unknown, 10/05/18) prochlorperazine (Verified Allergy, Unknown, 10/05/18) JAMES LOZA MD Mar 13, 2020 12:09
[2020-03-13 14:00] VITALS: BP 120/76
--- OUTSIDE RECORDS SUMMARY | 2020-03-13 14:47 | CCD | Continuity of Care Document ---
Author Author Rache[facility] Organization Unknown Address [facility] [address] [place] [address] Phone [phone] Care Team Providers Care Supervisor [facility] Name Role Phone Vangie Shepard MD AUTM [phone] [facility]M [phone] [facility] AUTM [facility] AUTM [phone] [facility] [phone] [facility] Therapy Services AUTM [phone] [facility] AUTM [phone] Carter Rodriguez AUTM [phone] Problems Active Problems Provider Date Anxiety state Vangie Shepard MD Onset: 08/08/2019 Obstructive hydrocephalus Vangie Shepard MD Onset: 08/07 Asthma without status asthmaticus Vangie Shepard MD Onse t: 08/08/2019 Endometriosis of uterus Vangie Shepard MD Onset: 020 Low back pain Vangie Shepard MD Onset: 08/08/2019 Allergic rhinitis Vangie Shepard MD Onset: 08/08/2019 Dental caries Vangie Shepard MD Onset: 08/08/2019 Depressive disorder Vangie Shepard MD Onset: 08/08/2019 Allergy to bee venom Vangie Shepard MD Onset: 08/08/2019 Social History Type Date Description Comments Sex Unknown Tobacco Use Start: Unknown Heavy tobacco smoker (more than 10 cigarettes/day) Tobacco Use Start: Unknown Never Smoked Cigars Tobacco Use Start: Unknown Never Smoked A Pipe Tobacco Use Start: Unknown Never Used Smokeless Tobacco ETOH Use Occasionally consumes alcohol Tobacco Use Start: Unknown Heavy tobacco smoker (more than 10 cigarettes/day) Recreational Drug Use Denies Drug Use Allergies, Adverse Reactions, Alerts Active Allergies Reaction Severity Comments Date Honey Bee Venom Difficulty breathing, Hives Severe 08/08/2019 Seasonal Itching, Nasal congestion Mild NKFA 09/11/2019 Flagyl 09/11/2019 Compazine 09/11/2019 Reglan 09/11/2019 Bactrim 09/11/2019 Penicillin G 09/11/2019 Ambien Hallucinations 09/11/2019 Medications Active Medications SIG Qnty Indications Ordering Provide r Date Sertraline HCL 25mg Tablets take one tablet by mouth every day for mood 30tabs Vangie herron MD 08/13/2019 Epipen 2-Wolfgang 0.3mg/0 .3ML Solution Auto-Inject 1 injection intramuscularly as needed for respiratory distress 2 units Vangie Shepard MD 08/08/2019 Albuterol Sulfate HFA 108(90Base) mcg/Act Aerosol inhale 1 puff by mouth every 4 hours as needed 17gm Vangie Shepard MD 08/08/2019 Trazodone HCL 50mg Tablets Take One Tablet By Mouth Every Day AT Bedtime as Needed For Insomnia Unknown 07/16/2019 Hair/Skin/Nails Capsules take one capsule by mouth once daily Unknown Allergy Relief 10mg Capsules take one capsule by mouth once daily Unknown 00 Immunizations Description No Information Available Vital Signs Date Vital Result Comment 09/11/2019 11:04am BP Systolic Sitting 110 mmHg Manual Le ft Arm BP Diastolic Sitting 78 mmHg Manual Left Arm Heart Rate 82 /min Body Temperature 97.7 F Oral Respiratory Rate 18 /min O2 % BldC Oximetry 98 % Weight 122.19 lb Weight 55.424 kg Height 60 inches 5'0" BMI (Body Mass Index) 23.9 kg/m2 BSA (Body Surface Area) 1.51 m2 08/21/2019 3:37pm BP Systolic 136 mmHg BP Diastolic 72 mmHg Heart Rate 75 /min Body Temperature 97.8 F Weight 132.00 lb Weight 59.875 kg Height 60 inches 5'0" BMI (Body Mass Index) 25.8 kg/m2 BSA (Body Surface Area) 1.56 m2 Results Test Acquired Date Facility Test Result H/L Range Note [facility] 13 09/11/2019 [facility] Summary Report (Summary) FINAL 1, 2 PDF . Xray 08/21/2019 [facility] [phone] Mammo Screening Bilateral with CAD <pending> 1 {DIAGNOSIS: F32.9~{MEDICATI ONS/DECLARED: SERTRALINE~{PRESCRIPTION INFO:~{PRESCRIPTION INFO: 2 TOXASSURE SELECT 13 (MW) Test Result Flag Units NO DRUGS DETECTED. Test Result Flag Units Ref Range Creatinine 76 mg/dL >=20 Declared Medications: The flagging and interpretation on this report are based on the following declared medications. Unexpected results may arise from inaccuracies in the declared medications. Note: The testing scope of this panel does not include following reported medications: Sertraline For clinical consultation, please call . Procedures Description No Information Available Medical Devices Description No Information Available Encounters Description No Information Available Assessments Date Code Description Provider 09/11/2019 F32.9 Major depressive disorder, singl e episode, unspecified Neeta Pinon, RN 09/11/2019 F41.9 Anxiety disorder, unspecified An avis Pinon, RN 09/05/2019 F32.9 Major depressive disorder, singl e episode, unspecified Joanne Tousant, [facility] 09/05/2019 F41.9 Anxiety disorder, unspecified Tr acy Tousant, [facility] 08/21/2019 Z01.419 Gynecologic examination Desiree Vieira M.D. 08/15/2019 F32.9 Major depressive disorder, singl e episode, unspecified Joanne Tousant, [facility] 08/15/2019 F41.9 Anxiety disorder, unspecified Tr acy Tousant, [facility] Plan of Treatment 08/21/2019 - Desiree Vieira M.D.* Z01.419 Gynecologic examination * All * Follow up:* FU in 1 yr or prn. Functional Status Functional Condition Comment Date Status Glasses Active Mental Status Description No Information Available Referrals Description No Information Available
--- OUTSIDE RECORDS SUMMARY | 2020-03-13 14:47 | CCD ---
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
<content>Girls (1-10 years) 6.0 - 27.0</content>
<content>[place] ECLIA methodology</content>
<content></content> Lutropin [Units/volume] in Serum or Plasma 43.8 mIU/mL [facility] ([facility]) Adult Female: Follicular phase 2.4 - 12.6 Ovulation phase 14.0 - 95.6 Luteal phase 1.0 - 11.4 Postmenopausal 7.7 - 58.5 ID Date Data Source [id number] 08/10/2019 07:16:00 AM EDT [facility] Value Range Interpretation Code Description Data Belgica rce(s) Supporting Document(s) Estradiol (E2) [Mass/volume] in Serum or Plasma 60.6 pg/mL [facility] Adult Female: Follicular phase 12.5 - 166.0 Ovulation phase 85.8 - 498.0 Luteal phase 43.8 - 211.0 Postmenopausal <6.0 - 54.7 1st trimester 215.0 - >4300.0 Girls (1-10 years) 6.0 - 27.0[place] ECLIA methodology ID Date Data Source [id number] 08/10/2019 07:16:00 AM EDT [facility] Value Range Interpretation Code Description Data Belgica rce(s) Supporting Document(s) Lutropin [Units/volume] in Serum or Plasma 43.8 mIU/mL [facility] Adult Female: Follicular phase 2.4 - 12.6 Ovulation phase 14.0 - 95.6 Luteal phase 1.0 - 11.4 Postmenopausal 7.7 - 58.5 ID Date Data Source [id number] 08/10/2019 07:15:00 AM EDT [facility] Value Range Interpretation Code Description Data Belgica rce(s) Supporting Document(s) Follitropin [Units/volume] in Serum or Plasma 40.4 mIU/mL [facility] Adult Female: Follicular phase 3.5 - 12.5 Ovulation phase 4.7 - 21.5 Luteal phase 1.7 - 7.7 Postmenopausal 25.8 - 134.8 ID Date Data Source [id number] 08/08/2019 06:48:00 PM EDT [facility] Name Value Range Interpretation Code Description Data Belgica rce(s) Supporting Document(s) Thyrotropin [Units/volume] in Serum or Plasma by Detec tion limit <= 0.05 mIU/L 1.27 uIU/mL 0.47 - 5.01 [facility] ID Date Data Source [id number] 08/08/2019 02:18:00 PM EDT [facility] ([facility]) Name Value Range Interpretation Code Description Data Belgica rce(s) Supporting Document(s) [facility] ID Date Data Source [id number] 06/08/2019 02:04:00 PM EDT [facility] Name Value Range Interpretation Code Description Data Belgica rce(s) Supporting Document(s) RAPID STREP NEGATIVE NORMAL: NEGATIVE [facility] RAPID STREP REENTER NEGATIVE NORMAL: NEGATIVE [facility] { PROCEDURAL CONTROL VALID ){ KIT LOT # [id number] ){ KIT EXP DATE 09.26.20 )The Strep A 2 assay utilizes isothermal nucleic acid amplification technology fothe qualitative detection of Group A Strep bacterial nucleic acid in throat swabspecimens.All negative test results no longer need to be confirmed with a culture. Follow-up testing requiring a culture is necessary if clinical symptoms persist, or inthe event of an acute rheumatic fever outbreak. A culture will need to beordered by the Qualified Medical Provider.Negative results do not preclude infection with Group A Strep and should not beused as the sole basis for treatment. ID Date Data Source [id number] 06/08/2019 02:02:00 PM EDT [facility] Name Value Range Interpretation Code Description Data Belgica rce(s) Supporting Document(s) Influenza virus A Ag [Presence] in Nasopharynx by Immunoassa y NEGATIVE NORMAL: NEGATIVE [facility] Influenza virus B Ag [Presence] in Nasopharynx by Immunoassa y NEGATIVE NORMAL: NEGATIVE [facility] NEGATIVENEGATIVE PROCEDURAL CO NTROL VALID KIT LOT # _[id number] 06/08/19. . KIT EXP DATE _04.18.20 06/08/19 .The Influenza A & B assay is a rapid molecular in vitro diagnostic testutilizing an isothermal nucleic acid amplification technology for thequalitative detection of influenza A and B viral RNA.Negative results do not preclude influenza virus infection and should not beused as the sole basis for diagnosis, treatment or other patient managementdecisions. ID Date Data Source [id number] 06/07/2019 12:00:00 PM EDT [facility] Name Value Range Interpretation Code Description Data Belgica rce(s) Supporting Document(s) SARS CORONAVIRUS 2 RNA [facility] This lab was ordered by [facility] and reported by [facility]. Procedure Vital Signs ID Date Data Source UNK Name Value Range Interpretation Code Description Data Source(s) Body surface area Derived from formula 1.51 m2 1.51 m2 [facility] ([facility]) Body mass index (BMI) [Ratio] 23.9 kg/m2 23.9 k g/m2 [facility] ([facility]) Body height 60 [in_i] 60 [in_i] [facility] ([facility]) 5'0" Body weight 55.424 kg 55.424 kg [facility] ([facility]) Body weight 122.19 [lb_av] 122.19 [lb_av] [facility] ([facility]) Oxygen saturation in Arterial blood by Pulse oximetry 98 % 98 % [facility] ([facility]) Respiratory rate 18 /min 18 /min [facility] ( [facility]) Body temperature 97.7 [degF] 97.7 [degF] [facility] ([facility]) Oral Heart rate 82 /min 82 /min [facility] ([facility]) Diastolic blood pressure--sitting 78 mm[Hg] 78 mm[Hg] [facility] ([facility]) Manual Left Arm Systolic blood pressure--sitting 110 mm[Hg] 110 mm[Hg] [facility] ([facility]) Manual Left Arm Body surface area 1.51 m2 1.51 m2 [facility] ([facility]) Body surface area Derived from formula 1.56 m2 1.56 m2 [facility] ([facility]) Body mass index (BMI) [Ratio] 25.8 kg/m2 25.8 k g/m2 [facility] ([facility]) Body height 60 [in_i] 60 [in_i] [facility] ([facility]) 5'0" Body weight 59.875 kg 59.875 kg [facility] ([facility]) Body weight 132.00 [lb_av] 132.00 [lb_av] [facility] T ([facility]) Body temperature 97.8 [degF] 97.8 [degF] [facility] ([facility]) Heart rate 75 /min 75 /min [facility] ([facility]) Diastolic blood pressure 72 mm[Hg] 72 mm[Hg] [facility] Systolic blood pressure 136 mm[Hg] 136 mm[Hg] M [facility] ([facility]) Body surface area 1.56 m2 1.56 m2 [facility] Body surface area 1.57 m2 1.57 m2 [facility] ([facility]) Body mass index (BMI) [Ratio] 26.1 kg/m2 26.1 k g/m2 [facility] ([facility]) Body height 60 [in_i] 60 [in_i] [facility] ([facility]) 5'0" Body weight 60.556 kg 60.556 kg [facility] ([facility]) Body weight 133.50 [lb_av] 133.50 [lb_av] [facility] ([facility]) Oxygen saturation in Arterial blood by Pulse oximetry 97 % 97 % [facility] ([facility]) Respiratory rate 16 /min 16 /min [facility] ( [facility]) Body temperature 98.7 [degF] 98.7 [degF] [facility] ([facility]) Heart rate 78 /min 78 /min [facility] ([facility]) Diastolic blood pressure 70 mm[Hg] 70 mm[Hg] [facility] ([facility]) Systolic blood pressure 104 mm[Hg] 104 mm[Hg] [facility] ([facility])
[2020-03-13] MEDS: NS 1,000 ML IV SCH (15:00)
[2020-03-13] MEDS: LevoFLOXacin IV 750 MG in IV 1 EA IV SCH (17:13)
[2020-03-13 22:00] VITALS: BP 121/76
[2020-03-14] MEDS: NS 1,000 ML IV SCH ×2 (03:20→16:48)
[2020-03-14 06:00] VITALS: BP 105/70
[2020-03-14 07:27] LABS: BASO # 0.1 10^3/uL (0.0-0.2); BASO % 0.6 % (0.0-1.0); EOS # 0.2 10^3/uL (0.0-0.5); EOS % 2.4 % (0.0-3.0); HEMATOCRIT 36.9 % (36.0-47.0); LYMPH # 2.3 10^3/uL (1.5-5.0); MEAN CORPUSCULAR HEMOGLOBIN 31.6 pg (27.0-33.0); MEAN CORPUSCULAR HGB CONC 32.8 g/dl (32.0-36.5); MEAN CORPUSCULAR VOLUME 96.3 fl (80.0-96.0); MONO # 0.9 10^3/uL (0.0-0.8); MONO % 10.5 % (0.0-5.0); NEUTROPHILS # 5.3 10^3/uL (1.5-8.5); NEUTROPHILS % 60.3 % (36.0-66.0); PLATELET COUNT, AUTOMATED 290 10^3/uL (150-450); RED BLOOD COUNT 3.83 10^6/uL (4.00-5.40); WHITE BLOOD COUNT 8.8 10^3/uL (4.0-10.0)
[2020-03-14 07:36] LABS: HEMOGLOBIN 12.1 g/dl (12.0-15.5)
[2020-03-14 07:47] LABS: BLOOD UREA NITROGEN 11 MG/DL (7-18); CALCIUM LEVEL 8.9 MG/DL (8.5-10.1); CARBON DIOXIDE LEVEL 31 MEQ/L (21-32); CHLORIDE LEVEL 109 MEQ/L (98-107); CREATININE FOR GFR 0.58 MG/DL (0.55-1.30); GLOMERULAR FILTRATION RATE > 60.0 (>58); GLUCOSE, FASTING 88 MG/DL (70-100); MAGNESIUM LEVEL 2.2 MG/DL (1.8-2.4); POTASSIUM SERUM 3.9 MEQ/L (3.5-5.1); SODIUM LEVEL 143 MEQ/L (136-145)
[2020-03-14] MEDS: ENOXAPARIN 40MG/0.4ML SYRINGE (J1650 PER 10MG) SC SCH (11:22)
[2020-03-14 14:00] VITALS: BP 103/63
[2020-03-14 14:44] LABS: APPEARANCE, URINE CLEAR (CLEAR); BACTERIA, URINE AUTO NEGATIVE (NEGATIVE); BILIRUBIN, URINE AUTO NEGATIVE (NEGATIVE); BLOOD, URINE BLOOD NEGATIVE (NEGATIVE); COLOR, URINE YELLOW (YELLOW); GLUCOSE, URINE (UA) AUTO NEGATIVE (NEGATIVE); KETONE, URINE AUTO NEGATIVE (NEGATIVE); LEUKOCYTE ESTERASE, URINE AUTO NEGATIVE (NEGATIVE); MUCUS, URINE SMALL (NEGATIVE); NITRITE, URINE AUTO NEGATIVE (NEGATIVE); PROTEIN, URINE AUTO NEGATIVE (NEGATIVE); RBC, URINE AUTO 1 /HPF (0-3); SPECIFIC GRAVITY URINE AUTO 1.009 (1.002-1.035); SQUAMOUS EPITHELIAL CELL UR AU 2 /HPF (0-6); WBC, URINE AUTO 1 /HPF (0-3)
[2020-03-14] MEDS: LevoFLOXacin IV 750 MG in IV 1 EA IV SCH (18:16)
--- NOTE | 2020-03-14 18:37 | IPNPDOC ---
Text Note Date of Service The patient was seen on 03/14/20. NOTE Subjective: Patient is to have emotional flat affect, catatonic Objective GENERAL APPEARANCE: NAD HEENT: no scleral icterus, no JVD, EOMI CARDIOVASCULAR: S1S2 LUNGS: CTA ABDOMEN: soft & not tender w palpitation MUSCULOSKELETAL: no cyanosis, no swelling INTEGUMENT: no generalized pallor NEUROLOGICAL: cranial nerve function from 2-12 intact intact, follows commands, speech not dysarthric Assessment and plan Patient is a 49-year-old female who presented to [facility] after she had reported worsening feelings. Patient reported that she has the spirit within her. Patient was admitted to the inpatient mental health unit under the care of psychiatry on 03/06/2020. Hospital service was initially consulted for medical screening evaluation on 03/07/2020. Throughout the duration of patients stay at the hospital. She has had minimal activity and minimal intake of food. Hospital service was consulted again after patient was mostly bedbound and then again on 03/14 to transfer patient to medical floor for what was reported as dehydration. Was called by psychiatry again to transfer the patient to medical surgical floor for rehydration. Currently patient does not appear to be significant change from yesterday. She denies any chest pain, shortness breath, palpitations, nausea, vomiting, abdominal pain, diarrhea, or urinary discomfort. Patient has not experience any fevers based on documentation. Weakness / Poor oral intake - possibly 2/2 psychiatric illness, possibly 2/2 medications, will r/o infectious etiology - No focal neurologic deficits noted - TSH noted on admission; wnl - Urine drug screen on admission negative Repeated UA negative, previous UA positive for pyuria and Klebsiella pneumonia infection sensitive to levofloxacin PT/OT Leukocytosis - likely 2/2 UTI Resolved Elevated AST - Improving - Hepatitis panel negative Anxiety / Depression / Delusional thoughts -Appreciate/agree with psych consult VS,Yumiko, I+O VS, Yumiko, I+O Laboratory Tests 03/14/20 07:03 Vital Signs Date Time Temp Pulse Resp B/P (MAP) Pulse Ox O2 Delivery O2 Flow Rate FiO2 03/14/20 14:00 97.9 95 16 103/63 (76) 98 Room Air I&O- Last 24 Hours up to 6 AM 03/14/20 05:59 Intake Total 1320 ml Output Total 800 ml Balance 520 ml LETY SPEARS DO Mar 14, 2020 18:37
[2020-03-14] MEDS ORDERED: ALBUTEROL 90 MCG/ACT 8GM HFA INHALER INH PRN (18:45)
[2020-03-14 22:00] VITALS: BP 105/70
[2020-03-14] MEDS: haloperidoL 5 MG TAB PO SCH (22:08)
[2020-03-15 06:00] VITALS: BP 107/72
[2020-03-15 07:13] LABS: BASO # 0.1 10^3/uL (0.0-0.2); BASO % 0.7 % (0.0-1.0); EOS # 0.3 10^3/uL (0.0-0.5); EOS % 3.8 % (0.0-3.0); HEMATOCRIT 35.7 % (36.0-47.0); HEMOGLOBIN 11.5 g/dl (12.0-15.5); LYMPH # 2.5 10^3/uL (1.5-5.0); MEAN CORPUSCULAR HEMOGLOBIN 30.8 pg (27.0-33.0); MEAN CORPUSCULAR HGB CONC 32.2 g/dl (32.0-36.5); MEAN CORPUSCULAR VOLUME 95.7 fl (80.0-96.0); MONO # 0.7 10^3/uL (0.0-0.8); MONO % 9.5 % (0.0-5.0); NEUTROPHILS # 4.1 10^3/uL (1.5-8.5); NEUTROPHILS % 53.7 % (36.0-66.0); PLATELET COUNT, AUTOMATED 295 10^3/uL (150-450); RED BLOOD COUNT 3.73 10^6/uL (4.00-5.40); WHITE BLOOD COUNT 7.7 10^3/uL (4.0-10.0)
[2020-03-15 07:40] LABS: BLOOD UREA NITROGEN 10 MG/DL (7-18); CARBON DIOXIDE LEVEL 30 MEQ/L (21-32); CHLORIDE LEVEL 110 MEQ/L (98-107); CREATININE FOR GFR 0.53 MG/DL (0.55-1.30); GLOMERULAR FILTRATION RATE > 60.0 (>58); GLUCOSE, FASTING 81 MG/DL (70-100); MAGNESIUM LEVEL 2.2 MG/DL (1.8-2.4); POTASSIUM SERUM 3.7 MEQ/L (3.5-5.1); SODIUM LEVEL 144 MEQ/L (136-145)
[2020-03-15] MEDS: haloperidoL 5 MG TAB PO SCH ×2 (09:38→21:22)
[2020-03-15] MEDS: SERTRALINE HCL 25 MG TABLET PO SCH (09:38)
[2020-03-15] MEDS: ENOXAPARIN 40MG/0.4ML SYRINGE (J1650 PER 10MG) SC SCH (09:39)
[2020-03-15] MEDS: NS 1,000 ML IV SCH ×2 (10:46→21:24)
[2020-03-15 14:00] VITALS: BP 111/73
--- NOTE | 2020-03-15 15:30 | IPNPDOC ---
Text Note Date of Service The patient was seen on 03/15/20. NOTE Subjective: Patient continues to have emotional flat affect Objective GENERAL APPEARANCE: NAD HEENT: no scleral icterus, no JVD, EOMI CARDIOVASCULAR: S1S2 LUNGS: CTA ABDOMEN: soft & not tender w palpitation MUSCULOSKELETAL: no cyanosis, no swelling INTEGUMENT: no generalized pallor NEUROLOGICAL: cranial nerve function from 2-12 intact intact, follows commands, speech not dysarthric Assessment and plan Patient is a 49-year-old female who presented to [facility] after she had reported worsening feelings. Patient reported that she has the spirit within her. Patient was admitted to the inpatient mental health unit under the care of psychiatry on 03/06/2020. Hospital service was initially consulted for medical screening evaluation on 03/07/2020. Throughout the duration of patients stay at the hospital. She has had minimal activity and minimal int angel luis of food. Hospital service was consulted again after patient was mostly bedbound and then again on 03/14 to transfer patient to medical floor for what was reported as dehydration. Was called by psychiatry again to transfer the patient to medical surgical floor for rehydration. Currently patient does not appear to be significant change from yesterday. She denies any chest pain, shortness breath, palpitations, nausea, vomiting, abdominal pain, diarrhea, or urinary discomfort. Patient has not ex perience any fevers based on documentation. Weakness / Poor oral intake - possibly 2/2 psychiatric illness, possibly 2/2 medications, will r/o infectious etiology - No focal neurologic deficits noted - TSH noted on admission; wnl - Urine drug screen on admission negative Repeated UA negative, previous UA positive for pyuria and Klebsiella pneumonia infection sensitive to levofloxacin PT/OT Leukocytosis - likely 2/2 UTI Resolved Elevated AST - Improving - Hepatitis panel negative Anxiety / Depression / Delusional thoughts -Appreciate/agree with psych consult VS,Fishbone, I+O VS, Fishbone, I+O Laboratory Tests 03/15/20 06:48 Vital Signs Date Time Temp Pulse Resp B/P (MAP) Pulse Ox O2 Delivery O2 Flow Rate FiO2 03/15/20 14:00 111/73 (86) 03/15/20 06:00 97.2 87 17 95 Room Air I&O- Last 24 Hours up to 6 AM 03/15/20 06:00 Intake Total 3580 ml Output Total 1900 ml Balance 1680 ml LETY SPEARS DO Mar 15, 2020 15:30
[2020-03-15] MEDS ORDERED: LevoFLOXacin 750 MG TABLET PO SCH (18:00)
[2020-03-15 22:00] VITALS: BP 109/69
[2020-03-16] MEDS: NS 1,000 ML IV SCH (05:30)
[2020-03-16 06:00] VITALS: BP 110/70
[2020-03-16 06:38] LABS: BASO % 0.6 % (0.0-1.0); EOS # 0.3 10^3/uL (0.0-0.5); EOS % 3.7 % (0.0-3.0); HEMATOCRIT 35.2 % (36.0-47.0); HEMOGLOBIN 11.3 g/dl (12.0-15.5); LYMPH # 2.2 10^3/uL (1.5-5.0); MEAN CORPUSCULAR HEMOGLOBIN 30.6 pg (27.0-33.0); MEAN CORPUSCULAR HGB CONC 32.1 g/dl (32.0-36.5); MEAN CORPUSCULAR VOLUME 95.4 fl (80.0-96.0); MONO # 0.7 10^3/uL (0.0-0.8); MONO % 9.7 % (0.0-5.0); NEUTROPHILS # 3.7 10^3/uL (1.5-8.5); NEUTROPHILS % 53.9 % (36.0-66.0); PLATELET COUNT, AUTOMATED 293 10^3/uL (150-450); RED BLOOD COUNT 3.69 10^6/uL (4.00-5.40); WHITE BLOOD COUNT 6.8 10^3/uL (4.0-10.0)
[2020-03-16 06:56] LABS: BLOOD UREA NITROGEN 10 MG/DL (7-18); CALCIUM LEVEL 8.6 MG/DL (8.5-10.1); CARBON DIOXIDE LEVEL 25 MEQ/L (21-32); CHLORIDE LEVEL 112 MEQ/L (98-107); CREATININE FOR GFR 0.48 MG/DL (0.55-1.30); GLOMERULAR FILTRATION RATE > 60.0 (>58); GLUCOSE, FASTING 86 MG/DL (70-100); MAGNESIUM LEVEL 1.9 MG/DL (1.8-2.4); POTASSIUM SERUM 3.7 MEQ/L (3.5-5.1); SODIUM LEVEL 146 MEQ/L (136-145)
[2020-03-16] MEDS ORDERED: D5W 1,000 ML IV ONE (08:30)
[2020-03-16] MEDS: SERTRALINE HCL 25 MG TABLET PO SCH (08:35)
[2020-03-16] MEDS: haloperidoL 5 MG TAB PO SCH ×2 (08:35→21:28)
[2020-03-16] MEDS: ENOXAPARIN 40MG/0.4ML SYRINGE (J1650 PER 10MG) SC SCH (08:36)
--- NOTE | 2020-03-16 11:15 | IPNPDOC ---
Text Note Date of Service The patient was seen on 03/16/20. NOTE Subjective: Patient continues to have emotional flat affect Objective GENERAL APPEARANCE: NAD HEENT: no scleral icterus, no JVD, EOMI CARDIOVASCULAR: S1S2 LUNGS: CTA ABDOMEN: soft & not tender w palpitation MUSCULOSKELETAL: no cyanosis, no swelling INTEGUMENT: no generalized pallor NEUROLOGICAL: cranial nerve function from 2-12 intact intact, follows commands, speech not dysarthric Assessment and plan Patient is a 49-year-old female who presented to [facility] after she had reported worsening feelings. Patient reported that she has the spirit within her. Patient was admitted to the inpatient mental health unit under the care of psychiatry on 03/06/2020. Hospital service was initially consulted for medical screening evaluation on 03/07/2020. Throughout the duration of patients stay at the hospital. She has had minimal activity and minimal in take of food. Hospital service was consulted again after patient was mostly bedbound and then again on 03/14 to transfer patient to medical floor for what was reported as dehydration. Was called by psychiatry again to transfer the patient to medical surgical floor for rehydration. Currently patient does not appear to be significant change from yesterday. She denies any chest pain, shortness breath, palpitations, nausea, vomiting, abdominal pain, diarrhea, or urinary discomfort. Patient has not e xperience any fevers based on documentation. Weakness / Poor oral intake - possibly 2/2 psychiatric illness, possibly 2/2 medications, will r/o infectious etiology - No focal neurologic deficits noted - TSH noted on admission; wnl - Urine drug screen on admission negative Repeated UA negative, previous UA positive for pyuria and Klebsiella pneumonia infection sensitive to levofloxacin PT/OT Leukocytosis - likely 2/2 UTI Resolved Elevated AST - Improving - Hepatitis panel negative Anxiety / Depression / Delusional thoughts Psych team recommended Haldol 5 mg the morning, 10 mg daily at bedtime VS,Fishbone, I+O VS, Fishbone, I+O Laboratory Tests 03/16/20 06:12 Vital Signs Date Time Temp Pulse Resp B/P (MAP) Pulse Ox O2 Delivery O2 Flow Rate FiO2 03/16/20 06:00 98.0 89 19 110/70 (83) 97 Room Air I&O- Last 24 Hours up to 6 AM 03/16/20 06:00 Intake Total 2250 ml Output Total 750 ml Balance 1500 ml LETY SPEARS DO Mar 16, 2020 11:15
[2020-03-17 06:00] VITALS: BP 155/72
[2020-03-17 07:00] LABS: BASO # 0.1 10^3/uL (0.0-0.2); BASO % 0.7 % (0.0-1.0); EOS # 0.3 10^3/uL (0.0-0.5); EOS % 2.8 % (0.0-3.0); HEMATOCRIT 41.3 % (36.0-47.0); HEMOGLOBIN 12.9 g/dl (12.0-15.5); LYMPH # 3.1 10^3/uL (1.5-5.0); LYMPH % 34.1 % (24.0-44.0); MEAN CORPUSCULAR HEMOGLOBIN 30.7 pg (27.0-33.0); MEAN CORPUSCULAR HGB CONC 31.2 g/dl (32.0-36.5); MEAN CORPUSCULAR VOLUME 98.3 fl (80.0-96.0); MONO # 0.8 10^3/uL (0.0-0.8); MONO % 8.7 % (0.0-5.0); NEUTROPHILS # 4.9 10^3/uL (1.5-8.5); NEUTROPHILS % 53.4 % (36.0-66.0); PLATELET COUNT, AUTOMATED 300 10^3/uL (150-450); WHITE BLOOD COUNT 9.2 10^3/uL (4.0-10.0)
[2020-03-17 07:17] LABS: BLOOD UREA NITROGEN 7 MG/DL (7-18); CALCIUM LEVEL 9.1 MG/DL (8.5-10.1); CARBON DIOXIDE LEVEL 26 MEQ/L (21-32); CHLORIDE LEVEL 110 MEQ/L (98-107); CREATININE FOR GFR 0.52 MG/DL (0.55-1.30); GLOMERULAR FILTRATION RATE > 60.0 (>58); GLUCOSE, FASTING 87 MG/DL (70-100); MAGNESIUM LEVEL 2.1 MG/DL (1.8-2.4); SODIUM LEVEL 144 MEQ/L (136-145)
[2020-03-17] MEDS: ENOXAPARIN 40MG/0.4ML SYRINGE (J1650 PER 10MG) SC SCH (09:28)
[2020-03-17] MEDS: SERTRALINE HCL 25 MG TABLET PO SCH (09:28)
[2020-03-17] MEDS: haloperidoL 5 MG TAB PO SCH ×2 (09:31→21:17)
[2020-03-18 06:00] VITALS: BP 118/72
[2020-03-18 07:56] LABS: BASO # 0.1 10^3/uL (0.0-0.2); BASO % 0.4 % (0.0-1.0); EOS # 0.2 10^3/uL (0.0-0.5); EOS % 1.6 % (0.0-3.0); HEMATOCRIT 38.7 % (36.0-47.0); HEMOGLOBIN 12.6 g/dl (12.0-15.5); LYMPH # 2.2 10^3/uL (1.5-5.0); LYMPH % 18.3 % (24.0-44.0); MEAN CORPUSCULAR HGB CONC 32.6 g/dl (32.0-36.5); MEAN CORPUSCULAR VOLUME 95.3 fl (80.0-96.0); MONO # 1.2 10^3/uL (0.0-0.8); MONO % 9.6 % (0.0-5.0); NEUTROPHILS # 8.5 10^3/uL (1.5-8.5); NEUTROPHILS % 69.8 % (36.0-66.0); PLATELET COUNT, AUTOMATED 349 10^3/uL (150-450); RED BLOOD COUNT 4.06 10^6/uL (4.00-5.40); WHITE BLOOD COUNT 12.2 10^3/uL (4.0-10.0)
[2020-03-18 08:17] LABS: BLOOD UREA NITROGEN 11 MG/DL (7-18); CALCIUM LEVEL 9.2 MG/DL (8.5-10.1); CARBON DIOXIDE LEVEL 29 MEQ/L (21-32); CHLORIDE LEVEL 108 MEQ/L (98-107); CREATININE FOR GFR 0.56 MG/DL (0.55-1.30); GLOMERULAR FILTRATION RATE > 60.0 (>58); GLUCOSE, FASTING 91 MG/DL (70-100); MAGNESIUM LEVEL 2.3 MG/DL (1.8-2.4); POTASSIUM SERUM 4.1 MEQ/L (3.5-5.1); SODIUM LEVEL 144 MEQ/L (136-145)
[2020-03-18] MEDS: haloperidoL 5 MG TAB PO SCH ×2 (09:46→20:21)
[2020-03-18] MEDS: SERTRALINE HCL 25 MG TABLET PO SCH (09:47)
[2020-03-18] MEDS: ENOXAPARIN 40MG/0.4ML SYRINGE (J1650 PER 10MG) SC SCH (09:48)
[2020-03-19 06:00] VITALS: BP 102/73
[2020-03-19 06:29] LABS: BASO # 0.1 10^3/uL (0.0-0.2); BASO % 0.6 % (0.0-1.0); EOS # 0.2 10^3/uL (0.0-0.5); EOS % 2.2 % (0.0-3.0); HEMOGLOBIN 11.8 g/dl (12.0-15.5); LYMPH # 2.2 10^3/uL (1.5-5.0); MEAN CORPUSCULAR HEMOGLOBIN 30.7 pg (27.0-33.0); MEAN CORPUSCULAR HGB CONC 31.9 g/dl (32.0-36.5); MEAN CORPUSCULAR VOLUME 96.4 fl (80.0-96.0); MONO # 0.9 10^3/uL (0.0-0.8); MONO % 10.1 % (0.0-5.0); NEUTROPHILS # 5.4 10^3/uL (1.5-8.5); NEUTROPHILS % 61.8 % (36.0-66.0); PLATELET COUNT, AUTOMATED 339 10^3/uL (150-450); RED BLOOD COUNT 3.84 10^6/uL (4.00-5.40); WHITE BLOOD COUNT 8.7 10^3/uL (4.0-10.0)
[2020-03-19 07:03] LABS: BLOOD UREA NITROGEN 12 MG/DL (7-18); CARBON DIOXIDE LEVEL 30 MEQ/L (21-32); CHLORIDE LEVEL 107 MEQ/L (98-107); CREATININE FOR GFR 0.57 MG/DL (0.55-1.30); GLOMERULAR FILTRATION RATE > 60.0 (>58); GLUCOSE, FASTING 93 MG/DL (70-100); MAGNESIUM LEVEL 2.3 MG/DL (1.8-2.4); POTASSIUM SERUM 3.9 MEQ/L (3.5-5.1); SODIUM LEVEL 142 MEQ/L (136-145)
[2020-03-19] MEDS: ENOXAPARIN 40MG/0.4ML SYRINGE (J1650 PER 10MG) SC SCH (11:44)
[2020-03-19] MEDS: haloperidoL 5 MG TAB PO SCH ×2 (11:44→20:19)
[2020-03-19] MEDS: SERTRALINE HCL 25 MG TABLET PO SCH (11:44)
[2020-03-19 19:04] LABS: HEMATOCRIT 39.9 % (36.0-47.0); MEAN CORPUSCULAR HEMOGLOBIN 31.1 pg (27.0-33.0); MEAN CORPUSCULAR HGB CONC 32.6 g/dl (32.0-36.5); MEAN CORPUSCULAR VOLUME 95.5 fl (80.0-96.0); PLATELET COUNT, AUTOMATED 384 10^3/uL (150-450); RED BLOOD COUNT 4.18 10^6/uL (4.00-5.40); WHITE BLOOD COUNT 9.8 10^3/uL (4.0-10.0)
[2020-03-19 19:27] LABS: BLOOD UREA NITROGEN 14 MG/DL (7-18); CALCIUM LEVEL 9.6 MG/DL (8.5-10.1); CARBON DIOXIDE LEVEL 29 MEQ/L (21-32); CHLORIDE LEVEL 108 MEQ/L (98-107); CREATININE FOR GFR 0.63 MG/DL (0.55-1.30); GLOMERULAR FILTRATION RATE > 60.0 (>58); GLUCOSE, FASTING 168 MG/DL (70-100); POTASSIUM SERUM 4.1 MEQ/L (3.5-5.1); SODIUM LEVEL 144 MEQ/L (136-145)
[2020-03-20 06:00] VITALS: BP 130/71
[2020-03-20 06:21] LABS: BASO # 0.1 10^3/uL (0.0-0.2); BASO % 0.6 % (0.0-1.0); EOS # 0.2 10^3/uL (0.0-0.5); EOS % 2.7 % (0.0-3.0); HEMATOCRIT 37.6 % (36.0-47.0); HEMOGLOBIN 12.2 g/dl (12.0-15.5); LYMPH # 2.9 10^3/uL (1.5-5.0); LYMPH % 36.9 % (24.0-44.0); MEAN CORPUSCULAR HEMOGLOBIN 30.5 pg (27.0-33.0); MEAN CORPUSCULAR HGB CONC 32.4 g/dl (32.0-36.5); MONO # 0.8 10^3/uL (0.0-0.8); MONO % 10.8 % (0.0-5.0); NEUTROPHILS # 3.8 10^3/uL (1.5-8.5); NEUTROPHILS % 48.7 % (36.0-66.0); WHITE BLOOD COUNT 7.8 10^3/uL (4.0-10.0)
[2020-03-20 06:32] LABS: BLOOD UREA NITROGEN 14 MG/DL (7-18); CARBON DIOXIDE LEVEL 28 MEQ/L (21-32); CHLORIDE LEVEL 108 MEQ/L (98-107); CREATININE FOR GFR 0.63 MG/DL (0.55-1.30); GLOMERULAR FILTRATION RATE > 60.0 (>58); GLUCOSE, FASTING 86 MG/DL (70-100); MAGNESIUM LEVEL 2.3 MG/DL (1.8-2.4); POTASSIUM SERUM 4.3 MEQ/L (3.5-5.1); SODIUM LEVEL 146 MEQ/L (136-145)
[2020-03-20 06:48] LABS: PLATELET COUNT, AUTOMATED 260 10^3/uL (150-450)
[2020-03-20] MEDS: ENOXAPARIN 40MG/0.4ML SYRINGE (J1650 PER 10MG) SC SCH (09:12)
[2020-03-20] MEDS: haloperidoL 5 MG TAB PO SCH (09:12)
[2020-03-20] MEDS: SERTRALINE HCL 25 MG TABLET PO SCH (09:12)
[2020-03-20] MEDS: CLOTRIMAZOLE 1% VAG CR 45 GM PV SCH (23:30)
[2020-03-20] MEDS: NYSTATIN 500,000 U/5 ML SUSP UDC SS SCH (23:30)
[2020-03-21] MEDS: haloperidoL 5 MG TAB PO SCH (08:14)
[2020-03-21] MEDS: ENOXAPARIN 40MG/0.4ML SYRINGE (J1650 PER 10MG) SC SCH (08:14)
[2020-03-21] MEDS: SERTRALINE HCL 25 MG TABLET PO SCH (08:14)
[2020-03-21] MEDS ORDERED: haloperidoL 5 MG TAB PO SCH (09:00)
[2020-03-21] MEDS: NYSTATIN 500,000 U/5 ML SUSP UDC SS SCH ×4 (09:36→20:11)
[2020-03-21] MEDS: CLOTRIMAZOLE 1% VAG CR 45 GM PV SCH (20:12)
[2020-03-22 01:52] VITALS: BP 114/75
[2020-03-22 06:00] VITALS: BP 125/77
[2020-03-22] MEDS: NYSTATIN 500,000 U/5 ML SUSP UDC SS SCH ×4 (09:21→20:18)
[2020-03-22] MEDS: SERTRALINE HCL 25 MG TABLET PO SCH (09:21)
[2020-03-22] MEDS: haloperidoL 5 MG TAB PO SCH (09:21)
[2020-03-22] MEDS: ENOXAPARIN 40MG/0.4ML SYRINGE (J1650 PER 10MG) SC SCH (09:22)
[2020-03-22] MEDS: CLOTRIMAZOLE 1% VAG CR 45 GM PV SCH (20:19)
[2020-03-23 06:00] VITALS: BP 122/76
[2020-03-23 08:37] LABS: BASO # 0.1 10^3/uL (0.0-0.2); BASO % 0.7 % (0.0-1.0); EOS # 0.2 10^3/uL (0.0-0.5); EOS % 1.7 % (0.0-3.0); HEMATOCRIT 40.5 % (36.0-47.0); HEMOGLOBIN 13.2 g/dl (12.0-15.5); LYMPH # 2.9 10^3/uL (1.5-5.0); MEAN CORPUSCULAR HEMOGLOBIN 30.9 pg (27.0-33.0); MEAN CORPUSCULAR HGB CONC 32.6 g/dl (32.0-36.5); MEAN CORPUSCULAR VOLUME 94.8 fl (80.0-96.0); MONO % 9.9 % (0.0-5.0); NEUTROPHILS # 5.8 10^3/uL (1.5-8.5); NEUTROPHILS % 58.5 % (36.0-66.0); PLATELET COUNT, AUTOMATED 389 10^3/uL (150-450); RED BLOOD COUNT 4.27 10^6/uL (4.00-5.40); WHITE BLOOD COUNT 9.8 10^3/uL (4.0-10.0)
[2020-03-23] MEDS: NYSTATIN 500,000 U/5 ML SUSP UDC SS SCH ×4 (08:38→21:18)
[2020-03-23] MEDS: ENOXAPARIN 40MG/0.4ML SYRINGE (J1650 PER 10MG) SC SCH (08:38)
[2020-03-23] MEDS: haloperidoL 5 MG TAB PO SCH (08:39)
[2020-03-23] MEDS: SERTRALINE HCL 25 MG TABLET PO SCH (08:39)
[2020-03-23 09:09] LABS: BLOOD UREA NITROGEN 13 MG/DL (7-18); CALCIUM LEVEL 9.6 MG/DL (8.5-10.1); CARBON DIOXIDE LEVEL 31 MEQ/L (21-32); CHLORIDE LEVEL 108 MEQ/L (98-107); GLOMERULAR FILTRATION RATE > 60.0 (>58); GLUCOSE, FASTING 90 MG/DL (70-100); MAGNESIUM LEVEL 2.5 MG/DL (1.8-2.4); POTASSIUM SERUM 4.4 MEQ/L (3.5-5.1); SODIUM LEVEL 148 MEQ/L (136-145)
--- NOTE | 2020-03-23 13:06 | IPNPDOC ---
Text Note Date of Service The patient was seen on 03/23/20. NOTE Subjective: Patient is a 49-year-old female who presented to [facility] after she had reported worsening feelings. Patient reported that she has the spirit within her. Patient was admitted to the inpatient mental health unit under the care of psychiatry on 03/06/2020. Hospital service was initially consulted for medical screening evaluation on 03/07/2020. Throughout the duration of patients stay at the hospital. She has had minimal activity and minimal intake of food. Hospital service was consulted again after patient was mostly bedbound and then again on 03/14 to transfer patient to medical floor for what was reported as dehydration. Patient was seen and examined at the bedside. Denied any CP, SOB, palpitations, N/V, abdominal pain, C/D or urinary discomfort. Objective: Vitals (See below) General: Lying in bed, appears comfortable, AAOx3, flat affect HEENT: NC, AT CVS: +S1S2 Lungs: Fair air entry b/l, -w/r/r Abdomen: Soft, ND, NT Extremities: - Edema, - Calf tenderness Assessment and plan: Weakness / Poor oral intake - possibly 2/2 psychiatric illness, possibly 2/2 medications, will r/o infectious etiology - Again no focal neurologic deficits noted - TSH noted on admission; wnl - Urine drug screen on admission negative - c/w PT and OT; recommending rehab on discharge Hypernatremia - Will encourage increase free water intake by mouth - Will follow up BMP in AM s/p UTI 2/2 Klebsiella pneumonia - Repeat UA negative - Urine culture 03/12: Klebsiella pneumoniae - Urine culture 03/21: Staph simulans - s/p Levofloxacin x 4 days - Will start Doxycycline x 5 days s/p Leukocytosis - likely 2/2 UTI Elevated AST - Improving - Hepatitis panel negative Anxiety / Depression / Delusional thoughts - Psychiatry on consultation - c/w Haldol / Sertraline DVT prophylaxis - c/w Lovenox Disposition: - c/w ALC status - Will need rehabilitation VS,Fishbone, I+O VS, Fishbone, I+O Laboratory Tests 03/23/20 08:16 Vital Signs Date Time Temp Pulse Resp B/P (MAP) Pulse Ox O2 Delivery O2 Flow Rate FiO2 03/23/20 06:00 97.0 81 16 122/76 (91) 95 Room Air I&O- Last 24 Hours up to 6 AM 03/23/20 06:00 Intake Total 790 ml Output Total 350 ml Balance 440 ml JAMES LOZA MD Mar 23, 2020 13:06
[2020-03-23] MEDS: DOXYCYCLINE HYCLATE 100MG TABLET PO SCH ×2 (13:51→21:18)
[2020-03-23] MEDS: CLOTRIMAZOLE 1% VAG CR 45 GM PV SCH (21:18)
[2020-03-24 06:00] VITALS: BP 116/74
[2020-03-24 06:55] LABS: BLOOD UREA NITROGEN 16 MG/DL (7-18); CALCIUM LEVEL 9.5 MG/DL (8.5-10.1); CARBON DIOXIDE LEVEL 30 MEQ/L (21-32); CHLORIDE LEVEL 108 MEQ/L (98-107); CREATININE FOR GFR 0.71 MG/DL (0.55-1.30); GLOMERULAR FILTRATION RATE > 60.0 (>58); GLUCOSE, FASTING 112 MG/DL (70-100); POTASSIUM SERUM 3.7 MEQ/L (3.5-5.1); SODIUM LEVEL 146 MEQ/L (136-145)
[2020-03-24] MEDS: NYSTATIN 500,000 U/5 ML SUSP UDC SS SCH ×4 (10:24→22:23)
[2020-03-24] MEDS: haloperidoL 5 MG TAB PO SCH (10:24)
[2020-03-24] MEDS: DOXYCYCLINE HYCLATE 100MG TABLET PO SCH ×2 (10:24→22:23)
[2020-03-24] MEDS: SERTRALINE HCL 25 MG TABLET PO SCH (10:24)
[2020-03-24] MEDS: ENOXAPARIN 40MG/0.4ML SYRINGE (J1650 PER 10MG) SC SCH (10:24)
--- NOTE | 2020-03-24 13:31 | MHCR ---
CONSULTATION DATE: 03/15/2020 CHIEF COMPLAINT: Feels weak. SUBJECTIVE: She is 49 years old, has a history of psychosis, delusions, mostly related to spirits, evil spirits, holy spirits as well, which reviewing past history appeared to be out of proportion with what would be expected with buddhist beliefs. The spirits have an impact on her mood, behaviors and her eating, which has recently diminished to a point where she was possibly dehydrated, this is after she had been admitted to the inpatient psychiatric unit recently. Please insert the notes, summaries by the nurse practitioner, Dimitrios, also reviewed previous discharge summaries and has been hospitalized on a few occasions, most recently in December of last year and stopped taking her medicines, generally have done well on Haldol and became ill and had gone to the hospital. I was consulted to medical floor by the hospitalist to help optimize medical care as she had stopped eating and drinking. I was called by Dr. Morales Demarco to see the patient, as he felt that she has been doing okay, though weak. She is currently on Haldol at 5 mg twice a day. She says she does not feel much different, she feels weak. Has been seen by physical therapy, who has recommended rehab upon discharge. Says is bothered by the spirits, sometimes a bit lesser than at other times. She says sleep has been okay. Denies that she can hear the spirits, however. Indicates when they are more intense, she has a tendency not to eat or drink. Feels weak, has required assistance in terms of movement. MENTAL STATUS EXAMINATION : She is lying in bed with the back propped up, fairly neat. She is cooperative, displays some psychomotor retardation, but answers questions logically, briefly, coherently with a somewhat blunted affect. Denies any sui1 thoughts or intents. Does not at present appear to be internally preoccupied. She has delusions. No fluctuation of consciousness. She is oriented to time, place and person. Judgment is poor. Insight is limited. ASSESSMENT: 1. Schizophrenia. 2. Dehydration. She feels weak, delusions continue to interfere with her well-being including nutrition, hydration. This has been a pattern lately. Has been eating a bit better. She is weak, requires assistance in terms of mobility. Physical therapy has suggested rehab on discharge. Displays psychomotor retardation, but is coherent. She has a restricted affect. RECOMMENDATIONS: Increase the Haldol to 7 mg at night. Continue Haldol 5 mg in the morning, this means a total of 12 mg a day, rather than the current 10 mg a day. Optimize current care, particularly mobility, though the differential may include catatonia, the concern is the delusions, which interfere with her nutrition and hydration leading to weakness, possible deli rum, which she is at greater risk for Her shunt apparently is working well. Once optimized in terms of mobility, will require inpatient psychiatric hospitalization. Thank you for the consult, if any questions please call. We will follow with you. The assessment took 30 minutes .
[2020-03-24 14:00] VITALS: BP 115/76
[2020-03-24] MEDS: CLOTRIMAZOLE 1% VAG CR 45 GM PV SCH (22:23)
[2020-03-25 06:00] VITALS: BP 113/75
[2020-03-25] MEDS: NYSTATIN 500,000 U/5 ML SUSP UDC SS SCH ×4 (11:08→21:40)
[2020-03-25] MEDS: ENOXAPARIN 40MG/0.4ML SYRINGE (J1650 PER 10MG) SC SCH (11:10)
[2020-03-25] MEDS: DOXYCYCLINE HYCLATE 100MG TABLET PO SCH ×2 (11:11→21:40)
[2020-03-25] MEDS: SERTRALINE HCL 25 MG TABLET PO SCH (11:11)
[2020-03-25] MEDS: CLOTRIMAZOLE 1% VAG CR 45 GM PV SCH (22:19)
[2020-03-26 06:00] VITALS: BP 124/76
[2020-03-26] MEDS: NYSTATIN 500,000 U/5 ML SUSP UDC SS SCH ×4 (09:13→21:24)
[2020-03-26] MEDS: DOXYCYCLINE HYCLATE 100MG TABLET PO SCH ×2 (12:21→21:24)
[2020-03-26] MEDS: ENOXAPARIN 40MG/0.4ML SYRINGE (J1650 PER 10MG) SC SCH (12:21)
[2020-03-26] MEDS: SERTRALINE HCL 25 MG TABLET PO SCH (12:21)
[2020-03-26] MEDS: CLOTRIMAZOLE 1% VAG CR 45 GM PV SCH (21:24)
[2020-03-27 06:00] VITALS: BP 124/78
[2020-03-27] MEDS: ENOXAPARIN 40MG/0.4ML SYRINGE (J1650 PER 10MG) SC SCH (08:53)
[2020-03-27] MEDS: NYSTATIN 500,000 U/5 ML SUSP UDC SS SCH ×4 (08:53→21:20)
[2020-03-27] MEDS: SERTRALINE HCL 25 MG TABLET PO SCH (08:53)
[2020-03-27] MEDS: DOXYCYCLINE HYCLATE 100MG TABLET PO SCH ×2 (08:54→21:20)
[2020-03-27] MEDS ORDERED: OLANZapine 2.5MG TABLET PO SCH (21:00)
[2020-03-27] MEDS ORDERED: OLANZapine 5 MG TAB PO SCH (21:00)
[2020-03-28 06:00] VITALS: BP 130/83
[2020-03-28] MEDS: NYSTATIN 500,000 U/5 ML SUSP UDC SS SCH ×4 (08:33→21:59)
[2020-03-28] MEDS: ENOXAPARIN 40MG/0.4ML SYRINGE (J1650 PER 10MG) SC SCH (08:33)
[2020-03-28] MEDS: SERTRALINE HCL 25 MG TABLET PO SCH (08:34)
[2020-03-28] MEDS: LORazepam 0.5 MG TAB PO SCH ×2 (08:34→21:59)
[2020-03-28] MEDS: haloperidoL 5 MG TAB PO SCH (08:34)
--- NOTE | 2020-03-28 12:00 | MHIPN ---
PROGRESS NOTE DATE: 03/27/2020 SUBJECTIVE: The patient has continued experiencing difficulties with nutrition, had the delusion of spirit inside her and suggest that it is a spirit, which she says she has experienced in the past. I have reviewed previous records as well and she had similar episodes about 12 years ago now, 2007, when she was hospitalized at [facility]. Collateral information obtained from her , Mr. Shoemaker, with the patient's permission, verbal permission ([phone]). Indicated that she did quite well with treatment when she was ill in 2007 and was on Zyprexa at that time and stayed on it for a few months, was seen at [place] afterwards where her had transferred and she was doing well enough for them to take her off the medicine. She remained well for essentially about a decade until the last year or so. He says he has noticed a possible deterioration after her mother a couple of years ago, but that matters related to a distinct deterioration and concerns regarding spirits more recent, last year, says it was likely a "switch went on". He has also noticed that she had been using Haldol late last year when hospitalized and discharged on it, had difficulties with mobility. He kept the Haldol down, to only 10 mg at night, mobility improved somewhat. The patient remained deluded, the delusion is of persecution nihilistic in nature. She says the spirit continues disturbing her, at times suggests it is more than one spirit. She does not think that it matters the time of day, the intensity, intensity remains high. She says it is because she did not "do the right thing" 12 years ago, but did not elaborate, suggests that is why the spirit has come back. She does not think that she can hear the spirit either. Says it is easier for her to take fluids rather than food. MENTAL STATUS EXAMINATION: She is lying in bed, appears weak, is cooperative. There is no agitation. There is some psychomotor retardation, but she answers questions briefly, logically and coherently. Affect is restricted in range, but little reactivity. She denies any suicidal thoughts or intents, does not appear internally preoccupied, has the delusion, currently no evidence of any fluctuation of consciousness. She is alert and oriented, was off about three days regarding the date, is easily reoriented. Her judgment and insight remain poor. IMPRESSION: 1. Schizophrenia versus schizoaffective disorder. Other differential diagnoses include major depression with psychosis and delusional disorder. The appearance seems more in keeping with a primary psychotic disorder, though there has been a gap of about 10 years. There is currently no evidence of any delirium. I had discussed the patient's situation, history with Dr. Kate, hospitalist, yesterday, and he had suggested that his examination was more in keeping with the patient's experiencing catatonia rather than weakness itself. This impacts her mobility. I spoke with the patient's for collaboration. He indicated she had done well on the olanzapine in the past. RECOMMENDATIONS: In view of the above, I suggest starting olanzapine 2.5 mg for one night and then 5 mg every night. Will cross-taper the olanzapine with Haldol. Discontinue Haldol 10 mg in the morning and cut it to 5 mg in the morning. Continue Haldol 10 mg at night. Continue Zoloft at 25 mg daily for now. We need to consider increasing it. Start lorazepam 0.5 mg twice a day. This may help with the catatonia-like features as well. Continue rest of the care, optimizing nutrition, mobility. We will follow with you. Further recommendations will be made depending on the clinical picture. The assessment took 40 minutes.
[2020-03-28] MEDS: OLANZapine 5 MG TAB PO SCH (21:59)
[2020-03-29 06:00] VITALS: BP 132/92
[2020-03-29] MEDS: LORazepam 0.5 MG TAB PO SCH ×2 (10:03→21:13)
[2020-03-29] MEDS: NYSTATIN 500,000 U/5 ML SUSP UDC SS SCH ×4 (10:03→21:13)
[2020-03-29] MEDS: SERTRALINE HCL 25 MG TABLET PO SCH (10:03)
[2020-03-29] MEDS: haloperidoL 5 MG TAB PO SCH (10:03)
[2020-03-29] MEDS: ENOXAPARIN 40MG/0.4ML SYRINGE (J1650 PER 10MG) SC SCH (10:04)
--- NOTE | 2020-03-29 16:02 | IPNPDOC ---
Text Note Date of Service The patient was seen on 03/29/20. NOTE Subjective: Patient was seen and examined this morning at bedside. Patient was transferred from inpatient mental health unit to the inpatient medical unit and generally 15th because of her dehydration and poor food intake. Patient has been minimally eating with one-to-one assisted feeds as a very flat affect avoids eye contact stairs and going space and answers mostly minimally yes no questions she is this motivated and appears depressed. She tells me she doesn't feel like eating and she is not hungry Objective: On physical exam patient is lying in bed she doesn't appear to be in any distress but she has a flat affect avoids eye contact Her heart rate is regular Lungs have fair air entry bilaterally without wheezing or crackles Abdomen is soft and nontender There is no peripheral extremity edema Assessment/plan: I did discuss this case with Dr. Dockery, her inpatient psychiatrist. I expressed to him that I'm concerned about her lack of motivation and lack of willingness to cooperate in [place] weakness and self-care to be related to her psychiatric illness. I was worried based on the Fontanez Byron scale that the patient might be presenting with features of catatonia. I don't know the patient has underlying schizophrenia or schizoaffective but this is possible as part of the differential including major depression. I did wonder discuss also whether the patient might be a candidate for ECT therapy which might be something that I be looked at further down the road if warranted necessary by psychiatry. At this time I don't have much additional medical management offered patient she is weak but her underlying metabolic causes have resolved her urinary tract infection has been treated with levofloxacin followed by oral doxycycline. Her sodium is a little elevated but this is related to poor water intake I encouraged the patient to try to drink more water and related this to her nurse. I will repeat some labs today. She may benefit from continued therapy but this might be secondary to needing better optimization of her underlying psychiatric conditions. It appears as though psychiatry has lowered her Haldol dose and start her on an atypical antipsychotic Zyprexa as well as low-dose of Ativan twice daily. We will continue to monitor the patient in transfer to the inpatient mental health units once psychiatry as able to accept the patient. Continue with Lovenox for DVT prophylaxis. Continue one-to-one feeding. Continue working with physical and occupational therapy. A Yousef Hospitalist VS,Yumiko, I+O VS, Fishbone, I+O Vital Signs Date Time Temp Pulse Resp B/P (MAP) Pulse Ox O2 Delivery O2 Flow Rate FiO2 03/29/20 06:00 98.3 111 18 132/92 (105) 100 Room Air I&O- Last 24 Hours up to 6 AM 03/29/20 06:00 Intake Total 145 ml Output Total 975 ml Balance -830 ml BRANDY MEREDITH MD Mar 29, 2020 16:02
[2020-03-29 16:32] LABS: HEMATOCRIT 47.9 % (36.0-47.0); HEMOGLOBIN 15.2 g/dl (12.0-15.5); MEAN CORPUSCULAR HEMOGLOBIN 30.7 pg (27.0-33.0); MEAN CORPUSCULAR HGB CONC 31.7 g/dl (32.0-36.5); MEAN CORPUSCULAR VOLUME 96.8 fl (80.0-96.0); PLATELET COUNT, AUTOMATED 328 10^3/uL (150-450); RED BLOOD COUNT 4.95 10^6/uL (4.00-5.40)
[2020-03-29 17:01] LABS: BLOOD UREA NITROGEN 32 MG/DL (7-18); CALCIUM LEVEL 9.3 MG/DL (8.5-10.1); CARBON DIOXIDE LEVEL 25 MEQ/L (21-32); CHLORIDE LEVEL 116 MEQ/L (98-107); CREATININE FOR GFR 0.77 MG/DL (0.55-1.30); GLOMERULAR FILTRATION RATE > 60.0 (>58); GLUCOSE, FASTING 178 MG/DL (70-100); POTASSIUM SERUM 4.4 MEQ/L (3.5-5.1); SODIUM LEVEL 153 MEQ/L (136-145)
[2020-03-29] MEDS: OLANZapine 5 MG TAB PO SCH (21:13)
[2020-03-30 06:00] VITALS: BP 109/76
[2020-03-30] MEDS: SERTRALINE HCL 25 MG TABLET PO SCH (09:28)
[2020-03-30] MEDS: NYSTATIN 500,000 U/5 ML SUSP UDC SS SCH ×4 (09:28→20:36)
[2020-03-30] MEDS: haloperidoL 5 MG TAB PO SCH (09:28)
[2020-03-30] MEDS: LORazepam 0.5 MG TAB PO SCH ×2 (09:28→20:34)
[2020-03-30] MEDS: ENOXAPARIN 40MG/0.4ML SYRINGE (J1650 PER 10MG) SC SCH (09:28)
[2020-03-30] MEDS: OLANZapine 5 MG TAB PO SCH (20:34)
[2020-03-31 06:00] VITALS: BP 114/71
[2020-03-31] MEDS: LORazepam 0.5 MG TAB PO SCH ×2 (09:54→20:29)
[2020-03-31] MEDS: ENOXAPARIN 40MG/0.4ML SYRINGE (J1650 PER 10MG) SC SCH (09:54)
[2020-03-31] MEDS: SERTRALINE HCL 25 MG TABLET PO SCH (09:54)
[2020-03-31] MEDS: NYSTATIN 500,000 U/5 ML SUSP UDC SS SCH ×4 (09:54→20:29)
[2020-03-31] MEDS: haloperidoL 5 MG TAB PO SCH (09:54)
[2020-03-31] MEDS: OLANZapine 5 MG TAB PO SCH (20:29)
[2020-04-01 06:00] VITALS: BP 125/70
[2020-04-01] MEDS: SERTRALINE HCL 25 MG TABLET PO SCH (09:00)
[2020-04-01] MEDS: haloperidoL 5 MG TAB PO SCH (09:00)
[2020-04-01] MEDS: LORazepam 0.5 MG TAB PO SCH ×2 (09:00→21:57)
[2020-04-01] MEDS: ENOXAPARIN 40MG/0.4ML SYRINGE (J1650 PER 10MG) SC SCH (09:27)
[2020-04-01] MEDS: NYSTATIN 500,000 U/5 ML SUSP UDC SS SCH ×4 (09:27→21:57)
[2020-04-01 10:20] LABS: BASO # 0.1 10^3/uL (0.0-0.2); BASO % 0.5 % (0.0-1.0); EOS # 0.2 10^3/uL (0.0-0.5); EOS % 2.3 % (0.0-3.0); HEMATOCRIT 40.7 % (36.0-47.0); HEMOGLOBIN 13.1 g/dl (12.0-15.5); LYMPH # 2.1 10^3/uL (1.5-5.0); LYMPH % 22.7 % (24.0-44.0); MEAN CORPUSCULAR HEMOGLOBIN 30.9 pg (27.0-33.0); MEAN CORPUSCULAR HGB CONC 32.2 g/dl (32.0-36.5); MONO # 0.8 10^3/uL (0.0-0.8); MONO % 8.3 % (0.0-5.0); NEUTROPHILS # 6.1 10^3/uL (1.5-8.5); NEUTROPHILS % 65.9 % (36.0-66.0); PLATELET COUNT, AUTOMATED 278 10^3/uL (150-450); RED BLOOD COUNT 4.24 10^6/uL (4.00-5.40); WHITE BLOOD COUNT 9.3 10^3/uL (4.0-10.0)
[2020-04-01 11:05] LABS: ALT/SGPT 24 U/L (12-78); BILIRUBIN,TOTAL 0.3 MG/DL (0.2-1.0); BLOOD UREA NITROGEN 21 MG/DL (7-18); CALCIUM LEVEL 9.3 MG/DL (8.5-10.1); CARBON DIOXIDE LEVEL 30 MEQ/L (21-32); CHLORIDE LEVEL 109 MEQ/L (98-107); CREATININE FOR GFR 0.51 MG/DL (0.55-1.30); GLOMERULAR FILTRATION RATE > 60.0 (>58); GLUCOSE, FASTING 111 MG/DL (70-100); MAGNESIUM LEVEL 2.3 MG/DL (1.8-2.4); POTASSIUM SERUM 3.7 MEQ/L (3.5-5.1); SODIUM LEVEL 145 MEQ/L (136-145); TOTAL PROTEIN 5.7 GM/DL (6.4-8.2)
[2020-04-01] MEDS: OLANZapine 5 MG TAB PO SCH (21:57)
[2020-04-02 06:00] VITALS: BP_SYST 113; BP_DIAS 1; BP_DIAS 61
[2020-04-02] MEDS: SERTRALINE HCL 25 MG TABLET PO SCH (09:22)
[2020-04-02] MEDS: haloperidoL 5 MG TAB PO SCH (09:22)
[2020-04-02] MEDS: ENOXAPARIN 40MG/0.4ML SYRINGE (J1650 PER 10MG) SC SCH (09:22)
[2020-04-02] MEDS: NYSTATIN 500,000 U/5 ML SUSP UDC SS SCH ×4 (09:22→21:22)
[2020-04-02] MEDS: LORazepam 0.5 MG TAB PO SCH ×2 (09:22→21:22)
[2020-04-02] MEDS: OLANZapine 5 MG TAB PO SCH (21:22)
[2020-04-03 06:00] VITALS: BP 112/70
[2020-04-03] MEDS: ENOXAPARIN 40MG/0.4ML SYRINGE (J1650 PER 10MG) SC SCH (09:50)
[2020-04-03] MEDS: NYSTATIN 500,000 U/5 ML SUSP UDC SS SCH ×4 (09:50→20:05)
[2020-04-03] MEDS: haloperidoL 5 MG TAB PO SCH (09:50)
[2020-04-03] MEDS: SERTRALINE HCL 25 MG TABLET PO SCH (09:50)
[2020-04-03] MEDS: LORazepam 0.5 MG TAB PO SCH ×2 (09:50→20:04)
[2020-04-03] MEDS: OLANZapine 10 MG TAB PO SCH (20:05)
[2020-04-04 06:00] VITALS: BP 110/71
[2020-04-04] MEDS: SERTRALINE HCL 25 MG TABLET PO SCH (10:45)
[2020-04-04] MEDS: haloperidoL 5 MG TAB PO SCH (10:45)
[2020-04-04] MEDS: LORazepam 0.5 MG TAB PO SCH ×2 (10:45→21:30)
[2020-04-04] MEDS: NYSTATIN 500,000 U/5 ML SUSP UDC SS SCH ×4 (10:45→21:29)
[2020-04-04] MEDS: ENOXAPARIN 40MG/0.4ML SYRINGE (J1650 PER 10MG) SC SCH (10:46)
--- NOTE | 2020-04-04 13:44 | IPNPDOC ---
Text Note Date of Service The patient was seen on 04/04/20. NOTE Subjective: Patient continues to have emotional flat affect Objective GENERAL APPEARANCE: NAD HEENT: no scleral icterus, no JVD, EOMI CARDIOVASCULAR: S1S2 LUNGS: CTA ABDOMEN: soft & not tender w palpitation MUSCULOSKELETAL: no cyanosis, no swelling INTEGUMENT: no generalized pallor NEUROLOGICAL: cranial nerve function from 2-12 intact intact, follows commands, speech not dysarthric Assessment and plan Patient is a 49-year-old female who presented to [facility] after she had reported worsening feelings. Patient reported that she has the spirit within her. Patient was admitted to the inpatient mental health unit under the care of psychiatry on 03/06/2020. Hospital service was initially consulted for medical screening evaluation on 03/07/2020. Throughout the duration of patients stay at the hospital. She has had minimal activity and minimal intake of food. Patient developed catatonia Weakness / Poor oral intake - possibly 2/2 psychiatric illness - No focal neurologic deficits noted - TSH noted on admission; wnl - Urine drug screen on admission negative Repeated UA negative, previous UA positive for pyuria and Klebsiella pneumonia infection sensitive to levofloxacin PT/OT Leukocytosis - likely 2/2 UTI Resolved Elevated AST Resolved Anxiety / Depression / Delusional thoughts/catatonia I talked yesterday to Dr. Dockery, he recommended doing increase the dose of Zyprexa to 10 mg daily at bedtime Psych team follows her VS,Fishbone, I+O VS, Fishbone, I+O Vital Signs Date Time Temp Pulse Resp B/P (MAP) Pulse Ox O2 Delivery O2 Flow Rate FiO2 04/04/20 06:00 97.6 84 16 110/71 (84) 96 Room Air I&O- Last 24 Hours up to 6 AM 04/04/20 06:00 Intake Total 995 ml Output Total 600 ml Balance 395 ml LETY SPEARS DO Apr 04, 2020 13:44
[2020-04-04] MEDS: OLANZapine 10 MG TAB PO SCH (21:30)
[2020-04-05 06:00] VITALS: BP 106/70
[2020-04-05 06:30] LABS: BASO % 0.6 % (0.0-1.0); EOS # 0.3 10^3/uL (0.0-0.5); EOS % 3.8 % (0.0-3.0); HEMATOCRIT 38.4 % (36.0-47.0); HEMOGLOBIN 12.1 g/dl (12.0-15.5); LYMPH # 2.7 10^3/uL (1.5-5.0); LYMPH % 38.2 % (24.0-44.0); MEAN CORPUSCULAR HEMOGLOBIN 30.4 pg (27.0-33.0); MEAN CORPUSCULAR HGB CONC 31.5 g/dl (32.0-36.5); MEAN CORPUSCULAR VOLUME 96.5 fl (80.0-96.0); MONO # 0.7 10^3/uL (0.0-0.8); MONO % 9.5 % (0.0-5.0); NEUTROPHILS # 3.4 10^3/uL (1.5-8.5); NEUTROPHILS % 47.6 % (36.0-66.0); PLATELET COUNT, AUTOMATED 253 10^3/uL (150-450); RED BLOOD COUNT 3.98 10^6/uL (4.00-5.40); WHITE BLOOD COUNT 7.2 10^3/uL (4.0-10.0)
[2020-04-05 06:59] LABS: BLOOD UREA NITROGEN 10 MG/DL (7-18); CALCIUM LEVEL 9.1 MG/DL (8.5-10.1); CARBON DIOXIDE LEVEL 30 MEQ/L (21-32); CHLORIDE LEVEL 106 MEQ/L (98-107); CREATININE FOR GFR 0.51 MG/DL (0.55-1.30); GLOMERULAR FILTRATION RATE > 60.0 (>58); GLUCOSE, FASTING 77 MG/DL (70-100); MAGNESIUM LEVEL 2.2 MG/DL (1.8-2.4); SODIUM LEVEL 143 MEQ/L (136-145)
[2020-04-05] MEDS: SERTRALINE HCL 25 MG TABLET PO SCH (09:18)
[2020-04-05] MEDS: haloperidoL 5 MG TAB PO SCH (09:18)
[2020-04-05] MEDS: LORazepam 0.5 MG TAB PO SCH ×2 (09:18→20:41)
[2020-04-05] MEDS: NYSTATIN 500,000 U/5 ML SUSP UDC SS SCH ×4 (09:18→20:41)
[2020-04-05] MEDS: ENOXAPARIN 40MG/0.4ML SYRINGE (J1650 PER 10MG) SC SCH (09:18)
[2020-04-05] MEDS: OLANZapine 10 MG TAB PO SCH (20:42)
[2020-04-06 06:00] VITALS: BP 101/60
[2020-04-06 06:46] LABS: BASO # 0.1 10^3/uL (0.0-0.2); BASO % 0.5 % (0.0-1.0); EOS # 0.2 10^3/uL (0.0-0.5); EOS % 2.5 % (0.0-3.0); HEMATOCRIT 37.3 % (36.0-47.0); LYMPH # 2.4 10^3/uL (1.5-5.0); LYMPH % 25.7 % (24.0-44.0); MEAN CORPUSCULAR HEMOGLOBIN 30.5 pg (27.0-33.0); MEAN CORPUSCULAR HGB CONC 32.2 g/dl (32.0-36.5); MEAN CORPUSCULAR VOLUME 94.7 fl (80.0-96.0); MONO # 0.9 10^3/uL (0.0-0.8); MONO % 9.6 % (0.0-5.0); NEUTROPHILS # 5.7 10^3/uL (1.5-8.5); NEUTROPHILS % 61.4 % (36.0-66.0); PLATELET COUNT, AUTOMATED 271 10^3/uL (150-450); RED BLOOD COUNT 3.94 10^6/uL (4.00-5.40); WHITE BLOOD COUNT 9.2 10^3/uL (4.0-10.0)
[2020-04-06 07:12] LABS: BLOOD UREA NITROGEN 9 MG/DL (7-18); CALCIUM LEVEL 8.9 MG/DL (8.5-10.1); CARBON DIOXIDE LEVEL 30 MEQ/L (21-32); CHLORIDE LEVEL 106 MEQ/L (98-107); CREATININE FOR GFR 0.56 MG/DL (0.55-1.30); GLOMERULAR FILTRATION RATE > 60.0 (>58); GLUCOSE, FASTING 90 MG/DL (70-100); MAGNESIUM LEVEL 2.2 MG/DL (1.8-2.4); POTASSIUM SERUM 3.8 MEQ/L (3.5-5.1); SODIUM LEVEL 145 MEQ/L (136-145)
[2020-04-06] MEDS: SERTRALINE HCL 25 MG TABLET PO SCH (10:55)
[2020-04-06] MEDS: haloperidoL 5 MG TAB PO SCH (10:55)
[2020-04-06] MEDS: NYSTATIN 500,000 U/5 ML SUSP UDC SS SCH ×4 (10:55→21:11)
[2020-04-06] MEDS: LORazepam 0.5 MG TAB PO SCH ×2 (10:55→21:11)
[2020-04-06] MEDS: ENOXAPARIN 40MG/0.4ML SYRINGE (J1650 PER 10MG) SC SCH (10:56)
[2020-04-06] MEDS: OLANZapine 10 MG TAB PO SCH (21:11)
[2020-04-07 06:00] VITALS: BP 102/61
[2020-04-07 06:38] LABS: BASO % 0.6 % (0.0-1.0); EOS # 0.3 10^3/uL (0.0-0.5); EOS % 3.8 % (0.0-3.0); HEMATOCRIT 36.2 % (36.0-47.0); HEMOGLOBIN 11.7 g/dl (12.0-15.5); LYMPH # 2.7 10^3/uL (1.5-5.0); LYMPH % 39.5 % (24.0-44.0); MEAN CORPUSCULAR HEMOGLOBIN 30.8 pg (27.0-33.0); MEAN CORPUSCULAR HGB CONC 32.3 g/dl (32.0-36.5); MEAN CORPUSCULAR VOLUME 95.3 fl (80.0-96.0); MONO # 0.7 10^3/uL (0.0-0.8); MONO % 10.7 % (0.0-5.0); NEUTROPHILS # 3.1 10^3/uL (1.5-8.5); NEUTROPHILS % 45.1 % (36.0-66.0); PLATELET COUNT, AUTOMATED 267 10^3/uL (150-450); WHITE BLOOD COUNT 6.9 10^3/uL (4.0-10.0)
[2020-04-07 07:05] LABS: BLOOD UREA NITROGEN 7 MG/DL (7-18); CARBON DIOXIDE LEVEL 31 MEQ/L (21-32); CHLORIDE LEVEL 107 MEQ/L (98-107); CREATININE FOR GFR 0.48 MG/DL (0.55-1.30); GLOMERULAR FILTRATION RATE > 60.0 (>58); GLUCOSE, FASTING 81 MG/DL (70-100); MAGNESIUM LEVEL 2.2 MG/DL (1.8-2.4); POTASSIUM SERUM 3.4 MEQ/L (3.5-5.1); SODIUM LEVEL 144 MEQ/L (136-145)
[2020-04-07] MEDS: haloperidoL 5 MG TAB PO SCH (09:30)
[2020-04-07] MEDS: NYSTATIN 500,000 U/5 ML SUSP UDC SS SCH ×4 (09:30→21:16)
[2020-04-07] MEDS: SERTRALINE HCL 25 MG TABLET PO SCH (09:30)
[2020-04-07] MEDS: LORazepam 0.5 MG TAB PO SCH ×2 (09:30→21:16)
[2020-04-07] MEDS: ENOXAPARIN 40MG/0.4ML SYRINGE (J1650 PER 10MG) SC SCH (09:31)
--- NOTE | 2020-04-07 18:49 | CR ---
CONSULTATION DATE: 04/07/2020 Advanced wound care consult via Telemedicine. CONSULT REQUESTED BY: Morales Demarco DO REASON FOR CONSULTATION: For treatment recommendations, multiple wounds involving the coccyx, left and right heels, left ear and left chin. HISTORY OF PRESENT ILLNESS: A 49-year-old female admitted for change in mental status with a significant mental health history, minimally ambulatory, requiring assistance, found to have multiple wounds involving both right and left lower extremities and coccyx She was admitted in mid-February of 2020 in a catatonic state. By history, she lives at home with a significant other. The patient has a superficial pressure injury involving the helix of her left ear and left lateral chin. According to the nurse, these were hospital acquired. Protective foams should be applied to the left ear and left chin and wedges used to prevent the patient from being in one position, namely the left lateral decubitus position to avoid continual pressure to the area which may have reduced or aggravated this. No debridement indicated. The coccyx has a wound measuring 2.4 cm x 3.2 cm with a wound depth of 0.5 cm. There is significant crusting and superficial necrotic tissue present. There is minimal serous drainage and the wound appears quite dry. A hydrocolloid dressing applied to the wound and changed every other day is the initial treatment. This should be followed up with wound debridement which can be performed at bedside or if the patient stabilizes and is discharged from the hospital a consult can be arranged and the patient can be evaluated at our wound center. Left heel and right heel show deep tissue injuries. The left heel measures 1.6 cm x 2.5 cm and the right heel 0.6 cm x 0.8 cm. On the anterior aspect of both right and left ankles, there are local abrasions presumably from the Velcro straps of the heel float boots. These should be protected with foam dressings and an ABD pad applied underneath the Velcro straps. Protective foams for the deep tissue injuries are indicated and the treatment of choice is offloading with heel float boots. It should be noted that deep tissue injuries can progress to full thickness pressure injuries and this should be monitored. Any signs of fluctuation, drainage, purulent or serosanguineous or significant erythema involving the periwound of any of these wounds would require debridement. Nutritional supplement is also indicated along with change in position q.2 hours. If the patient is to be out of bed which is unlikely, a ROHO cushion is indicated. An alternating air mattress should also be utilized. The patient's laboratory basic studies show no gross abnormalities at this time. If you feel at the end of one week any of these wounds need to be reevaluated, please free to reconsult. MTDD
[2020-04-07] MEDS: OLANZapine 10 MG TAB PO SCH (21:16)
[2020-04-08 06:00] VITALS: BP 127/68
[2020-04-08 06:14] LABS: BASO # 0.1 10^3/uL (0.0-0.2); BASO % 0.7 % (0.0-1.0); EOS # 0.2 10^3/uL (0.0-0.5); EOS % 3.1 % (0.0-3.0); HEMATOCRIT 35.1 % (36.0-47.0); HEMOGLOBIN 11.3 g/dl (12.0-15.5); LYMPH # 2.1 10^3/uL (1.5-5.0); MEAN CORPUSCULAR HEMOGLOBIN 30.8 pg (27.0-33.0); MEAN CORPUSCULAR HGB CONC 32.2 g/dl (32.0-36.5); MEAN CORPUSCULAR VOLUME 95.6 fl (80.0-96.0); MONO # 0.9 10^3/uL (0.0-0.8); MONO % 12.7 % (0.0-5.0); NEUTROPHILS % 54.1 % (36.0-66.0); PLATELET COUNT, AUTOMATED 310 10^3/uL (150-450); RED BLOOD COUNT 3.67 10^6/uL (4.00-5.40); WHITE BLOOD COUNT 7.4 10^3/uL (4.0-10.0)
[2020-04-08 06:37] LABS: BLOOD UREA NITROGEN 6 MG/DL (7-18); CALCIUM LEVEL 8.7 MG/DL (8.5-10.1); CARBON DIOXIDE LEVEL 30 MEQ/L (21-32); CHLORIDE LEVEL 107 MEQ/L (98-107); CREATININE FOR GFR 0.49 MG/DL (0.55-1.30); GLOMERULAR FILTRATION RATE > 60.0 (>58); GLUCOSE, FASTING 81 MG/DL (70-100); POTASSIUM SERUM 4.1 MEQ/L (3.5-5.1); SODIUM LEVEL 144 MEQ/L (136-145)
[2020-04-08] MEDS: haloperidoL 5 MG TAB PO SCH (09:55)
[2020-04-08] MEDS: LORazepam 0.5 MG TAB PO SCH ×2 (09:55→20:26)
[2020-04-08] MEDS: ENOXAPARIN 40MG/0.4ML SYRINGE (J1650 PER 10MG) SC SCH (09:55)
[2020-04-08] MEDS: SERTRALINE HCL 25 MG TABLET PO SCH (09:55)
[2020-04-08] MEDS: NYSTATIN 500,000 U/5 ML SUSP UDC SS SCH ×4 (09:55→20:26)
--- NOTE | 2020-04-08 13:20 | IPNPDOC ---
Date Seen The patient was seen on 04/08/20. Progress Note SUBJECTIVE: Per nursing and staff, patient appears more "perked up" today than the prior. Still seems tired, lethargic to me. Medications being adjusted carefully. Patient denies pain, fevers, chills, SOB, cough, n/v. OBJECTIVE: PHYSICAL EXAM: VS: Please see below GENERAL APPEARANCE: NAD, resting in bed, arousable but tired this AM HEENT: no scleral icterus, no JVD, EOMI CARDIOVASCULAR: S1S2 LUNGS: CTA ABDOMEN: soft & not tender w palpitation MUSCULOSKELETAL: no cyanosis, no swelling INTEGUMENT: pressure ulcer on left neck with bandaging covering, sacral decub also clean. NEUROLOGICAL: cranial nerve function from 2-12 intact intact, follows commands, speech not dysarthric PSYCH: flat affect LABORATORY: please see below ASSESSMENT: Patient is a 49-year-old female who presented to [facility] after she had reported worsening feelings. Patient reported that she has the spirit within her. Patient was admitted to the inpatient mental health unit under the care of psychiatry on 03/06/2020. Hospital service was initially consulted for medical screening evaluation on 03/07/2020. Throughout the duration of patients stay at the hospital. She has had minimal activity and minimal intake of food. Patient developed catatonia PLAN: Weakness / Poor oral intake possibly 2/2 psychiatric illness - No focal neurologic deficits noted - TSH wnl - Urine drug screen on admission negative -UTI treated, last dose abx 03/27/20 -PT/OT, optimize nutrition Anxiety / Depression / Delusional thoughts/catatonia -Last provider on spoke with Dr. Dockery, who had recommended doing increasing dose of Zyprexa to 10 mg daily at bedtime -C/w sertraline, zyprexa, lorazepam, haldol BID scheduled -F/u ECG today to check QTc -Psych team following DVT px -Enoxaparin DISPOSITION: Plan is once physically able, IMHU. Psych following. C/w PT/OT, treating psychiatric illness and seeing if improves. Current Medications Current Medications Medications (Trade) Dose Ordered Sig/Moe Route PRN Reason Start Time Stop Time Status Last Admin Dose Admin Acetaminophen (Tylenol Tab) 650 mg Q4H PRN PO PAIN OR FEVER 03/13/20 15:00 Albuterol Sulfate (Proventil, Ventolin Hfa) 2 puff Q4H PRN INH SHORTNESS OF BREATH 03/14/20 18:45 Clotrimazole (Lotrimin 1% Vag) 1 dose QHS PV 03/20/20 21:00 03/26/20 21:01 DC 03/26/20 21:24 Doxycycline Hyclate (Vibramycin) 100 mg BID PO 03/23/20 09:00 03/27/20 21:01 DC 03/27/20 21:20 Enoxaparin Sodium (Lovenox) 40 mg DAILY SC 03/14/20 09:00 04/08/20 09:55 Haloperidol (Haldol) 2 mg QAM PO 03/20/20 21:00 03/20/20 17:25 DC Haloperidol (Haldol) 2 mg QAM PO 03/21/20 09:00 03/24/20 15:05 DC 03/24/20 10:23 Haloperidol (Haldol) 2 mg QHS PO 03/16/20 21:00 03/20/20 16:41 DC 03/19/20 20:19 Haloperidol (Haldol) 5 mg BID PO 03/14/20 21:00 03/16/20 11:14 DC 03/16/20 08:35 Haloperidol (Haldol) 5 mg QAM PO 03/17/20 09:00 03/20/20 16:41 DC 03/20/20 09:12 Haloperidol (Haldol) 5 mg QAM PO 03/21/20 09:00 03/20/20 17:26 DC Haloperidol (Haldol) 5 mg QAM PO 03/21/20 09:00 03/24/20 15:05 DC 03/24/20 10:24 Haloperidol (Haldol) 5 mg QAM PO 03/28/20 09:00 04/08/20 09:55 Haloperidol (Haldol) 5 mg QHS PO 03/16/20 21:00 03/20/20 17:25 DC 03/19/20 20:19 Haloperidol (Haldol) 10 mg QAM PO 03/25/20 09:00 03/27/20 21:16 DC 03/27/20 08:54 Haloperidol (Haldol) 10 mg QHS PO 03/20/20 21:00 04/07/20 21:16 Home Med (Med Rec Complete!) ASDIRECTED XX 03/13/20 15:00 03/13/20 14:50 DC Levofloxacin (Levaquin) 750 mg DAILY@1800 PO 03/15/20 18:00 03/16/20 07:57 DC 03/15/20 17:43 Levofloxacin 750 mg/IV Miscellaneous Supplies 150 ml @ 100 mls/hr Q24H IV 03/13/20 18:00 03/14/20 18:35 DC 03/14/20 18:16 Lorazepam (Ativan) 0.5 mg BID PO 03/28/20 09:00 04/08/20 09:55 Miscellaneous (Unresolved Clarification Entry) SEE LABEL COMMENTS DAILY XX 03/30/20 09:00 03/30/20 10:50 DC Nystatin (Mycostatin) 5 ml QID SS 03/20/20 21:00 04/08/20 09:55 Olanzapine (ZyPREXA) 2.5 mg QHS PO 03/27/20 21:00 03/27/20 21:31 DC 03/27/20 21:48 Olanzapine (ZyPREXA) 5 mg QHS PO 03/27/20 21:00 Cancel Olanzapine (ZyPREXA) 5 mg QHS PO 03/28/20 21:00 04/03/20 17:26 DC 04/02/20 21:22 Olanzapine (ZyPREXA) 10 mg QHS PO 04/03/20 21:00 04/07/20 21:16 Sertraline HCl (Zoloft) 25 mg DAILY PO 03/15/20 09:00 04/08/20 09:55 Sodium Chloride 1,000 ml @ 80 mls/hr [id number] IV 03/13/20 15:00 03/16/20 07:57 DC 03/15/20 21:24 Allergies Coded Allergies: metronidazole (Verified Allergy, Severe, tongue swelling, throat tightness, 10/05/18) Sulfa (Sulfonamide Antibiotics) (Verified Allergy, Intermediate, hives, 10/05/18) Contrast Media (Verified Allergy, Unknown, 05/21/07) Penicillins (Verified Allergy, Unknown, 10/05/18) metoclopramide (Verified Allergy, Unknown, 10/05/18) prochlorperazine (Verified Allergy, Unknown, 10/05/18) VS, I&O, 24H, Fishbone Vital Signs/I&O Vital Signs Date Time Temp Pulse Resp B/P (MAP) Pulse Ox O2 Delivery O2 Flow Rate FiO2 04/08/20 06:00 98.1 69 16 127/68 (87) 98 Room Air I&O- Last 24 Hours up to 6 AM 04/08/20 06:00 Intake Total 1940 ml Output Total 1300 ml Balance 640 ml Laboratory Data 24H LABS Laboratory Tests 2 04/08/20 06:01: Immature Granulocyte % (Auto) 0.4, Neutrophils (%) (Auto) 54.1, Lymphocytes (%) (Auto) 29.0, Monocytes (%) (Auto) 12.7H, Eosinophils (%) (Auto) 3.1H, Basophils (%) (Auto) 0.7, Neutrophils # (Auto) 4.0, Lymphocytes # (Auto) 2.1, Monocytes # (Auto) 0.9H, Eosinophils # (Auto) 0.2, Basophils # (Auto) 0.1, Nucleated Red Blood Cells % (auto) 0.0, Anion Gap 7L, Glomerular Filtration Rate > 60.0, Calcium Level 8.7, Magnesium Level 2.0 CBC/BMP Laboratory Tests 04/08/20 06:01 Jami Laughlin MD Apr 08, 2020 13:20
[2020-04-08] MEDS: OLANZapine 10 MG TAB PO SCH (20:26)
[2020-04-09 06:00] VITALS: BP 102/61
[2020-04-09 06:32] LABS: BASO % 0.6 % (0.0-1.0); EOS # 0.2 10^3/uL (0.0-0.5); EOS % 3.3 % (0.0-3.0); HEMATOCRIT 35.8 % (36.0-47.0); HEMOGLOBIN 11.5 g/dl (12.0-15.5); LYMPH # 2.4 10^3/uL (1.5-5.0); LYMPH % 34.5 % (24.0-44.0); MEAN CORPUSCULAR HGB CONC 32.1 g/dl (32.0-36.5); MEAN CORPUSCULAR VOLUME 96.5 fl (80.0-96.0); MONO # 0.8 10^3/uL (0.0-0.8); MONO % 11.7 % (0.0-5.0); NEUTROPHILS # 3.5 10^3/uL (1.5-8.5); NEUTROPHILS % 49.6 % (36.0-66.0); PLATELET COUNT, AUTOMATED 291 10^3/uL (150-450); RED BLOOD COUNT 3.71 10^6/uL (4.00-5.40)
[2020-04-09 06:54] LABS: BLOOD UREA NITROGEN 6 MG/DL (7-18); CALCIUM LEVEL 8.5 MG/DL (8.5-10.1); CARBON DIOXIDE LEVEL 31 MEQ/L (21-32); CHLORIDE LEVEL 106 MEQ/L (98-107); CREATININE FOR GFR 0.51 MG/DL (0.55-1.30); GLOMERULAR FILTRATION RATE > 60.0 (>58); GLUCOSE, FASTING 79 MG/DL (70-100); POTASSIUM SERUM 4.2 MEQ/L (3.5-5.1); SODIUM LEVEL 144 MEQ/L (136-145)
--- NOTE | 2020-04-09 07:40 | ECGEPIP ---
[facility] Test Date: 2020-04-08 Pat Name: CAREN CURRY Department: Room: [place] [address] Gender: Female [place] Typist: HENRY : 1970 Requested By: Jami Porter Order Number: [id number] Reading MD: David Girard Measurements Intervals Carrier Rate: 93 P: 75 TN: 168 QRS: 51 QRSD: 82 T: 68 QT: 354 QTc: 440 Interpretive Statements Normal sinus rhythm Electronically Signed on 04-09-2020 7:39:42 EST by David Girard
[2020-04-09] MEDS: SERTRALINE HCL 50 MG TAB PO SCH ×2 (09:00→10:03)
[2020-04-09] MEDS: NYSTATIN 500,000 U/5 ML SUSP UDC SS SCH ×5 (09:00→21:27)
[2020-04-09] MEDS: LORazepam 0.5 MG TAB PO SCH ×2 (09:00→10:03)
--- NOTE | 2020-04-09 09:27 | MHIPN ---
[facility] PROGRESS NOTE DATE: 04/03/2020 I came to see the patient today, 04/03/2020, this is in the evening, she was asleep. I had spoken with the hospitalist earlier today, and discussed changes in her medication regimen, an increase in the olanzapine is recommended, 10 mg at night. I had spoken with the nurse as well, during the day, who had indicated the patient had been eating more comfortably, and has apparently been seen to be doing better. Will follow with you.
--- NOTE | 2020-04-09 09:27 | MHIPN ---
[facility] PROGRESS NOTE DATE: 04/08/2020 SUBJECTIVE: The staff indicated that she has been more interactive, and nutrition has improved somewhat. She has been out of bed for short periods as well. Has been seen by Dr. Rushing, regarding wound care. That note is reviewed. Appears to be quite tired in the evenings after she takes her medicines. The staff has also noted less of a tendency for her to feel tired during the daytime, particularly in the last few days. She has been a bit more out of bed than she had been lately. MENTAL STATUS EXAM: She is currently able to hold a brief conversation, she is lying in bed, recognizes me, she is coherent, but some psychomotor retardation, but no agitation, affect is quite restricted. She does not display any evidence of any thoughts of harming herself. The delusions regarding the "spirit" is also maintained, but possibly less intense, and she is alert, oriented. At present, does not appear to be internally preoccupied. Judgment and insight remain poor. ASSESSMENT: Schizophrenia versus schizoaffective disorder. RECOMMENDATIONS: Continue cross-tapering Haldol with olanzapine. Discontinue Haldol 5 mg in the morning. Continue Haldol 10 mg at night for the next two nights, and then decrease it to 5 mg at night. Increase olanzapine to 15 mg at night. Discontinue lorazepam 0.5 mg twice a day and given lorazepam 0.5 mg only in the morning. Increase Sertraline to 50 mg daily. Continue optimizing the rest of her care, and mobility. Once clinically improved in terms of nutrition and mobility, would suggest working on possible transfer to inpatient psychiatry. Will continue to follow with you.
[2020-04-09] MEDS: ENOXAPARIN 40MG/0.4ML SYRINGE (J1650 PER 10MG) SC SCH (10:03)
[2020-04-09] MEDS: MIRALAX *UNIT DOSE* 17GM PACKET PO PRN (19:12)
[2020-04-09] MEDS: SENNA 8.6 MG TAB (SENOKOT) PO SCH (21:27)
[2020-04-09] MEDS: DOCUSATE SODIUM 100MG CAPSULE PO SCH (21:27)
[2020-04-09] MEDS: OLANZapine 5 MG TAB PO SCH (21:27)
[2020-04-10 06:00] VITALS: BP 96/54
[2020-04-10 06:15] LABS: BASO # 0.1 10^3/uL (0.0-0.2); BASO % 0.7 % (0.0-1.0); EOS # 0.3 10^3/uL (0.0-0.5); EOS % 3.9 % (0.0-3.0); LYMPH # 2.5 10^3/uL (1.5-5.0); LYMPH % 36.1 % (24.0-44.0); MEAN CORPUSCULAR HEMOGLOBIN 31.1 pg (27.0-33.0); MEAN CORPUSCULAR HGB CONC 32.4 g/dl (32.0-36.5); MEAN CORPUSCULAR VOLUME 95.9 fl (80.0-96.0); MONO # 0.9 10^3/uL (0.0-0.8); MONO % 12.3 % (0.0-5.0); NEUTROPHILS # 3.3 10^3/uL (1.5-8.5); NEUTROPHILS % 46.9 % (36.0-66.0); PLATELET COUNT, AUTOMATED 300 10^3/uL (150-450); RED BLOOD COUNT 3.86 10^6/uL (4.00-5.40)
[2020-04-10 06:38] LABS: BLOOD UREA NITROGEN 8 MG/DL (7-18); CALCIUM LEVEL 9.4 MG/DL (8.5-10.1); CARBON DIOXIDE LEVEL 33 MEQ/L (21-32); CHLORIDE LEVEL 107 MEQ/L (98-107); CREATININE FOR GFR 0.55 MG/DL (0.55-1.30); GLOMERULAR FILTRATION RATE > 60.0 (>58); GLUCOSE, FASTING 81 MG/DL (70-100); MAGNESIUM LEVEL 2.1 MG/DL (1.8-2.4); POTASSIUM SERUM 4.5 MEQ/L (3.5-5.1); SODIUM LEVEL 145 MEQ/L (136-145)
[2020-04-10 06:44] VITALS: BP 108/73
[2020-04-10] MEDS: LORazepam 0.5 MG TAB PO SCH (09:44)
[2020-04-10] MEDS: SERTRALINE HCL 50 MG TAB PO SCH (09:44)
[2020-04-10] MEDS: ENOXAPARIN 40MG/0.4ML SYRINGE (J1650 PER 10MG) SC SCH (09:44)
[2020-04-10] MEDS: DOCUSATE SODIUM 100MG CAPSULE PO SCH ×2 (09:44→20:13)
[2020-04-10] MEDS: NYSTATIN 500,000 U/5 ML SUSP UDC SS SCH ×4 (09:44→20:12)
[2020-04-10 14:00] VITALS: BP 109/62
[2020-04-10] MEDS: SENNA 8.6 MG TAB (SENOKOT) PO SCH (20:12)
[2020-04-10] MEDS: OLANZapine 5 MG TAB PO SCH (20:12)
[2020-04-11 06:00] VITALS: BP 106/61
[2020-04-11 06:12] LABS: BASO % 0.4 % (0.0-1.0); EOS # 0.3 10^3/uL (0.0-0.5); EOS % 3.2 % (0.0-3.0); HEMATOCRIT 35.6 % (36.0-47.0); HEMOGLOBIN 11.6 g/dl (12.0-15.5); LYMPH # 2.7 10^3/uL (1.5-5.0); MEAN CORPUSCULAR HEMOGLOBIN 31.2 pg (27.0-33.0); MEAN CORPUSCULAR HGB CONC 32.6 g/dl (32.0-36.5); MEAN CORPUSCULAR VOLUME 95.7 fl (80.0-96.0); MONO # 0.8 10^3/uL (0.0-0.8); MONO % 10.2 % (0.0-5.0); NEUTROPHILS # 4.4 10^3/uL (1.5-8.5); NEUTROPHILS % 52.8 % (36.0-66.0); PLATELET COUNT, AUTOMATED 301 10^3/uL (150-450); RED BLOOD COUNT 3.72 10^6/uL (4.00-5.40); WHITE BLOOD COUNT 8.3 10^3/uL (4.0-10.0)
[2020-04-11 06:32] LABS: BLOOD UREA NITROGEN 11 MG/DL (7-18); CALCIUM LEVEL 8.9 MG/DL (8.5-10.1); CARBON DIOXIDE LEVEL 32 MEQ/L (21-32); CHLORIDE LEVEL 105 MEQ/L (98-107); CREATININE FOR GFR 0.49 MG/DL (0.55-1.30); GLOMERULAR FILTRATION RATE > 60.0 (>58); GLUCOSE, FASTING 79 MG/DL (70-100); MAGNESIUM LEVEL 1.9 MG/DL (1.8-2.4); SODIUM LEVEL 143 MEQ/L (136-145)
[2020-04-11] MEDS: NYSTATIN 500,000 U/5 ML SUSP UDC SS SCH ×4 (08:56→20:23)
[2020-04-11] MEDS: LORazepam 0.5 MG TAB PO SCH (08:56)
[2020-04-11] MEDS: ENOXAPARIN 40MG/0.4ML SYRINGE (J1650 PER 10MG) SC SCH (08:56)
[2020-04-11] MEDS: SERTRALINE HCL 50 MG TAB PO SCH (08:56)
[2020-04-11] MEDS: DOCUSATE SODIUM 100MG CAPSULE PO SCH ×2 (08:56→20:23)
[2020-04-11] MEDS: OLANZapine 5 MG TAB PO SCH (20:23)
[2020-04-11] MEDS: SENNA 8.6 MG TAB (SENOKOT) PO SCH (20:24)
[2020-04-12] MEDS: NYSTATIN 500,000 U/5 ML SUSP UDC SS SCH ×4 (09:33→20:11)
[2020-04-12] MEDS: DOCUSATE SODIUM 100MG CAPSULE PO SCH ×2 (09:33→20:11)
[2020-04-12] MEDS: SERTRALINE HCL 50 MG TAB PO SCH (09:33)
[2020-04-12] MEDS: LORazepam 0.5 MG TAB PO SCH (09:33)
[2020-04-12] MEDS: ENOXAPARIN 40MG/0.4ML SYRINGE (J1650 PER 10MG) SC SCH (09:33)
[2020-04-12] MEDS: SENNA 8.6 MG TAB (SENOKOT) PO SCH (20:11)
[2020-04-12] MEDS: OLANZapine 5 MG TAB PO SCH (20:11)
[2020-04-13 06:00] VITALS: BP 103/61
[2020-04-13] MEDS: DOCUSATE SODIUM 100MG CAPSULE PO SCH ×2 (10:17→21:48)
[2020-04-13] MEDS: ENOXAPARIN 40MG/0.4ML SYRINGE (J1650 PER 10MG) SC SCH (10:17)
[2020-04-13] MEDS: LORazepam 0.5 MG TAB PO SCH (10:17)
[2020-04-13] MEDS: NYSTATIN 500,000 U/5 ML SUSP UDC SS SCH ×4 (10:17→21:48)
[2020-04-13] MEDS: SERTRALINE HCL 50 MG TAB PO SCH (10:17)
[2020-04-13] MEDS: MIRALAX *UNIT DOSE* 17GM PACKET PO PRN (10:18)
[2020-04-13] MEDS ORDERED: LACTULOSE 20 GM/30 ML SYRUP UD PO ONE (16:30)
[2020-04-13] MEDS ORDERED: MIRALAX *UNIT DOSE* 17GM PACKET PO PRN (16:30)
[2020-04-13] MEDS: OLANZapine 5 MG TAB PO SCH (21:48)
[2020-04-13] MEDS: SENNA 8.6 MG TAB (SENOKOT) PO SCH (21:48)
[2020-04-14 06:00] VITALS: BP 117/72
[2020-04-14] MEDS: DOCUSATE SODIUM 100MG CAPSULE PO SCH ×2 (09:13→20:54)
[2020-04-14] MEDS: SERTRALINE HCL 50 MG TAB PO SCH (09:13)
[2020-04-14] MEDS: LORazepam 0.5 MG TAB PO SCH (09:13)
[2020-04-14] MEDS: ENOXAPARIN 40MG/0.4ML SYRINGE (J1650 PER 10MG) SC SCH (09:14)
[2020-04-14] MEDS: NYSTATIN 500,000 U/5 ML SUSP UDC SS SCH (09:14)
[2020-04-14] MEDS: OLANZapine 5 MG TAB PO SCH (20:54)
[2020-04-14] MEDS: SENNA 8.6 MG TAB (SENOKOT) PO SCH (20:54)
[2020-04-15 06:00] VITALS: BP 100/64
[2020-04-15] MEDS: LORazepam 0.5 MG TAB PO SCH (08:50)
[2020-04-15] MEDS: ENOXAPARIN 40MG/0.4ML SYRINGE (J1650 PER 10MG) SC SCH (08:50)
[2020-04-15] MEDS: DOCUSATE SODIUM 100MG CAPSULE PO SCH ×2 (08:50→20:02)
[2020-04-15] MEDS: SERTRALINE HCL 50 MG TAB PO SCH (08:50)
[2020-04-15] MEDS: OLANZapine 5 MG TAB PO SCH (20:02)
[2020-04-15] MEDS: SENNA 8.6 MG TAB (SENOKOT) PO SCH (20:02)
[2020-04-16 06:00] VITALS: BP 100/63
--- NOTE | 2020-04-16 09:25 | CR.PDOC ---
General Date of Consultation: Apr 16, [address] Cherry. REASON FOR CONSULTATION: Debridement of coccyx decubital ulcer HISTORY OF PRESENT ILLNESS: The patient is a 49-year-old female initially admitted to the inpatient mental health unit under the care of psychiatry 03/06/20 reporting "worsening feelings"and during the duration of her stay minimal activity with minimal intake of food and catatonia. The patient was mostly bedbound and was transferred to medical floor 03/13/20 with dehydration. The patient was noted to have wounds involving the coccyx, left and right heels, left ear and left chin and advanced wound care, Dr Rushing, was consulted 04/07/20. General surgery is consulted for debridement of coccyx wound. ALLERGIES: Please see below. HOME MEDICATIONS: Please see below. PAST MEDICAL HISTORY: Anxiety Depression Delusional thoughts PAST SURGICAL HISTORY: INFECTION PREVENTION PRACTITIONER shunt placement when she was 17 years old for hydrocephalus Bilateral cataract surgery Retinal detachment repair Endometriosis/ovarian cyst resection FAMILY HISTORY: non smoker SOCIAL HISTORY: non contributory PHYSICAL EXAMINATION: VITAL SIGNS: Please see below. GENERAL APPEARANCE: NAD, in bed. RESPIRATORY: CTA CARDIOVASCULAR: RRR ABDOMEN: soft, NT coccyx wound with dressing intact EXTREMITIES: foam dressing on feet B/L. No edema. LABORATORY DATA: Please see below. A/P. Coccyx wound. Continue wound care as per Dr Rushing. General surgery consulted for wound debridement. Plan for debridement later today as per Dr Cherry. Vital Signs/I&O Vital Signs Date Time Temp Pulse Resp B/P (MAP) Pulse Ox O2 Delivery O2 Flow Rate FiO2 04/16/20 06:00 98.6 93 16 100/63 (75) 95 Room Air I&O- Last 24 Hours up to 6 AM 04/16/20 05:59 Intake Total 1540 ml Output Total 650 ml Balance 890 ml Allergies Coded Allergies: metronidazole (Verified Allergy, Severe, tongue swelling, throat tightness, 10/05/18) Sulfa (Sulfonamide Antibiotics) (Verified Allergy, Intermediate, hives, 10/05/18) Contrast Media (Verified Allergy, Unknown, 05/21/07) Penicillins (Verified Allergy, Unknown, 10/05/18) metoclopramide (Verified Allergy, Unknown, 10/05/18) prochlorperazine (Verified Allergy, Unknown, 10/05/18) Home Medications Scheduled Haloperidol (Haloperidol) 5 Mg Tablet, 5 MG PO BID for psychosis, #1 Levofloxacin (Levofloxacin) 750 Mg Tablet, 750 MG PO DAILY@1800 for infection, #1 Sertraline HCl (Sertraline HCl) 25 Mg Tablet, 25 MG PO DAILY for mood, #1 Scheduled PRN Albuterol Sulfate (Proair Hfa) 8.5 Gm Hfa.aer.ad, 2 PUFF INH Q4H PRN for SHORTNESS OF BREATH, (Reported) Benztropine Mesylate (Benztropine Mesylate) 0.5 Mg Tablet, 0.5 MG PO BID PRN for EPS, #14 Nhung Cordova Apr 16, 2020 09:25
[2020-04-16] MEDS: DOCUSATE SODIUM 100MG CAPSULE PO SCH ×2 (10:21→20:13)
[2020-04-16] MEDS: LORazepam 0.5 MG TAB PO SCH (10:21)
[2020-04-16] MEDS: SERTRALINE HCL 50 MG TAB PO SCH (10:21)
[2020-04-16] MEDS: ENOXAPARIN 40MG/0.4ML SYRINGE (J1650 PER 10MG) SC SCH (10:21)
[2020-04-16] MEDS: OLANZapine 5 MG TAB PO SCH (20:13)
[2020-04-16] MEDS: SENNA 8.6 MG TAB (SENOKOT) PO SCH (20:13)
[2020-04-17 06:00] VITALS: BP 100/64
--- NOTE | 2020-04-17 09:48 | MHIPN ---
[facility] PROGRESS NOTE DATE: 04/16/2020 SUBJECTIVE: She has been eating a bit more and takes some Ensure. The staff indicates that nutrition has improved. She has a wound, on the back, this has been debrided. She says she has pain. She still has a sensation of "the spirits" but possibly a bit less intense, although she is not sure of this. Per staff, she gets out of bed with assist only. She is cooperative, she is lying in bed, she is less guarded, answers, questions coherently, affect remains restricted, reactive, possibly a bit more than it was in the past. Denies any suicidal or homicidal ideations or intents. Maintains the delusion, but it does not appear as prominent. She is alert and oriented. Judgment and insight are impaired. ASSESSMENT: Schizophrenia with schizoaffective disorder. Has delusions of spirits, but it does not interfere as intently as it did with her nutrition in the past. Mobility remains a distinct difficulty. RECOMMENDATIONS: Increase the Zyprexa to a total of 20 mg daily, by starting her on Zyprexa 5 mg in the morning, continuing with the Zyprexa (olanzapine) at 15 mg at night. Has come off the Haldol quite well. Continue enhancing mobility. Should that improve, would enhance her condition considerably. I am away through April 21, 2020. If there are any questions, please call Psychiatry on-call.
[2020-04-17] MEDS: OLANZapine 5 MG TAB PO SCH ×2 (11:49→21:35)
[2020-04-17] MEDS: LORazepam 0.5 MG TAB PO SCH (11:49)
[2020-04-17] MEDS: ENOXAPARIN 40MG/0.4ML SYRINGE (J1650 PER 10MG) SC SCH (11:49)
[2020-04-17] MEDS: DOCUSATE SODIUM 100MG CAPSULE PO SCH ×2 (11:49→21:34)
[2020-04-17] MEDS: SERTRALINE HCL 50 MG TAB PO SCH (11:49)
[2020-04-17] MEDS: SENNA 8.6 MG TAB (SENOKOT) PO SCH (21:34)
[2020-04-17 22:00] VITALS: BP 112/76
[2020-04-18 06:00] VITALS: BP 100/60
--- NOTE | 2020-04-18 06:28 | RO ---
OPERATIVE NOTE DATE OF OPERATION: 04/16/2020 PREOPERATIVE DIAGNOSIS: Sacral decubitus ulcer. POSTOPERATIVE DIAGNOSIS: Sacral decubitus ulcer. PROCEDURE: Bedside sharp excisional debridement of decubitus ulcer. SURGEON: Felton Cherry DO SUPERVISOR STATEMENT CLERKS: None. ANESTHESIA: None. ESTIMATED BLOOD LOSS: 5 ml. COMPLICATIONS: None. INDICATION FOR PROCEDURE: The patient is a 49-year-old female currently with a sacral decubitus ulcer. Recommendation was to proceed with bedside debridement. Risks and benefits of procedure not limited to, but included infection, damage to surrounding structures, need for further surgery were discussed in detail with the patient and informed consent was obtained and procedure was planned. DESCRIPTION OF PROCEDURE: The patient was laid in the left lateral decubitus position at the bedside. The presacral area was examined using a sharp curette, as well as a 15 blade scalpel. I was able to dissect through the skin and subcutaneous tissue, presacral fascia, through the muscle using the scalpel, debriding all of the necrotic tissue. The presacral fascia was mostly intact. There was exposed bone. The wound measured approximately 3 x 4 cm in diameter and about 2 cm in depth. Once all of the necrotic tissue was dbrided and all the wound edges were nice and health and bleeding tissue, I packed the wound with 4 x 4 and covered it with some more gauze and then rolled her back on to her back to keep pressure on the wound. She tolerated the procedure well. No pain. After a few hours, we will remove the packing and place her back on the normal wound care dressing that she had on to begin with
[2020-04-18] MEDS: DOCUSATE SODIUM 100MG CAPSULE PO SCH ×2 (09:28→21:04)
[2020-04-18] MEDS: OLANZapine 5 MG TAB PO SCH ×2 (09:28→21:04)
[2020-04-18] MEDS: SERTRALINE HCL 50 MG TAB PO SCH (09:28)
[2020-04-18] MEDS: LORazepam 0.5 MG TAB PO SCH (09:28)
[2020-04-18] MEDS: ENOXAPARIN 40MG/0.4ML SYRINGE (J1650 PER 10MG) SC SCH (09:29)
[2020-04-18] MEDS: SENNA 8.6 MG TAB (SENOKOT) PO SCH (21:04)
[2020-04-19 06:00] VITALS: BP 100/60
[2020-04-19] MEDS: SERTRALINE HCL 50 MG TAB PO SCH (12:05)
[2020-04-19] MEDS: LORazepam 0.5 MG TAB PO SCH (12:05)
[2020-04-19] MEDS: DOCUSATE SODIUM 100MG CAPSULE PO SCH ×2 (12:05→21:36)
[2020-04-19] MEDS: OLANZapine 5 MG TAB PO SCH ×2 (12:05→21:36)
[2020-04-19] MEDS: ENOXAPARIN 40MG/0.4ML SYRINGE (J1650 PER 10MG) SC SCH (12:06)
[2020-04-19] MEDS: SENNA 8.6 MG TAB (SENOKOT) PO SCH (21:36)
[2020-04-20 06:00] VITALS: BP 120/66
[2020-04-20] MEDS: SERTRALINE HCL 50 MG TAB PO SCH (09:18)
[2020-04-20] MEDS: DOCUSATE SODIUM 100MG CAPSULE PO SCH ×2 (09:18→20:43)
[2020-04-20] MEDS: ENOXAPARIN 40MG/0.4ML SYRINGE (J1650 PER 10MG) SC SCH (09:18)
[2020-04-20] MEDS: OLANZapine 5 MG TAB PO SCH ×2 (09:18→20:43)
[2020-04-20] MEDS: LORazepam 0.5 MG TAB PO SCH (09:18)
[2020-04-20] MEDS: SENNA 8.6 MG TAB (SENOKOT) PO SCH (20:43)
[2020-04-21 06:00] VITALS: BP 111/65
[2020-04-21] MEDS: OLANZapine 5 MG TAB PO SCH ×2 (10:03→22:18)
[2020-04-21] MEDS: DOCUSATE SODIUM 100MG CAPSULE PO SCH ×2 (10:03→22:18)
[2020-04-21] MEDS: ENOXAPARIN 40MG/0.4ML SYRINGE (J1650 PER 10MG) SC SCH (10:03)
[2020-04-21] MEDS: SERTRALINE HCL 50 MG TAB PO SCH (10:03)
[2020-04-21] MEDS: LORazepam 0.5 MG TAB PO SCH (10:03)
--- NOTE | 2020-04-21 11:03 | IPNPDOC ---
Date Seen The patient was seen on 04/21/20. Progress Note SUBJECTIVE: Patient was examined and interviewed at bedside. She has no new complaints. She is lying on her left side. Denied any pain, shortness of breath OBJECTIVE PHYSICAL EXAMINATION: VITAL SIGNS: Please see below. GENERAL: Cachectic, frail. , No respiratory distress HEENT: Dry mucous membranes. Chapped lips. No JVD CARDIOVASCULAR: S1, S2, sinus rhythm RESPIRATORY: Air entry is equal. Clear to auscultation ABDOMINAL: Stage IV sacral decubitus, 3 x 4 cm, positive bowel sounds, soft, nontender, nondistended EXTREMITIES: No cyanosis or clubbing. Bilateral heel ulcers LABORATORY DATA, IMAGING STUDIES, MICROBIOLOGY: Please see below. ASSESSMENT AND PLAN: 49-year-old female with history of anxiety, depression, delusional thoughts and catatonia with poor oral intake and failure to thrive. Sacral decubitus. 3 x 4 cm stage IV, and bilateral heel ulcers admitted to the medical floor for placement. Wound care consult and general surgery managing patient's sacral decubitus and heel ulcers emulsion operator consulted to improve patient's protein calorie malnutrition and failure to thrive. Patient is turned every 2 hourly VS, I&O, 24H, Fishbone Vital Signs/I&O Vital Signs Date Time Temp Pulse Resp B/P (MAP) Pulse Ox O2 Delivery O2 Flow Rate FiO2 04/21/20 06:00 96.8 86 16 111/65 (80) 96 Room Air I&O- Last 24 Hours up to 6 AM 04/21/20 06:00 Intake Total 930 ml Output Total 1000 ml Balance -70 ml JESSICA PERRIN MD Apr 21, 2020 11:03
[2020-04-21] MEDS: SENNA 8.6 MG TAB (SENOKOT) PO SCH (22:18)
[2020-04-22 06:00] VITALS: BP 102/59
[2020-04-22] MEDS: LORazepam 0.5 MG TAB PO SCH (09:44)
[2020-04-22] MEDS: OLANZapine 5 MG TAB PO SCH ×2 (09:44→22:36)
[2020-04-22] MEDS: DOCUSATE SODIUM 100MG CAPSULE PO SCH ×2 (09:44→22:36)
[2020-04-22] MEDS: SERTRALINE HCL 50 MG TAB PO SCH (09:44)
[2020-04-22] MEDS: ENOXAPARIN 40MG/0.4ML SYRINGE (J1650 PER 10MG) SC SCH (09:44)
[2020-04-22] MEDS: SENNA 8.6 MG TAB (SENOKOT) PO SCH (22:36)
[2020-04-23 06:00] VITALS: BP 106/58
[2020-04-23] MEDS: DOCUSATE SODIUM 100MG CAPSULE PO SCH ×2 (09:53→22:22)
[2020-04-23] MEDS: ENOXAPARIN 40MG/0.4ML SYRINGE (J1650 PER 10MG) SC SCH (09:53)
[2020-04-23] MEDS: LORazepam 0.5 MG TAB PO SCH (09:53)
[2020-04-23] MEDS: OLANZapine 5 MG TAB PO SCH ×2 (09:53→22:22)
[2020-04-23] MEDS: SERTRALINE HCL 50 MG TAB PO SCH (09:53)
[2020-04-23] MEDS: SENNA 8.6 MG TAB (SENOKOT) PO SCH (22:22)
[2020-04-24] MEDS: LORazepam 0.5 MG TAB PO SCH (09:44)
[2020-04-24] MEDS: OLANZapine 5 MG TAB PO SCH ×2 (09:47→20:09)
[2020-04-24] MEDS: DOCUSATE SODIUM 100MG CAPSULE PO SCH ×2 (09:47→20:09)
[2020-04-24] MEDS: SERTRALINE HCL 50 MG TAB PO SCH (09:47)
[2020-04-24] MEDS: ENOXAPARIN 40MG/0.4ML SYRINGE (J1650 PER 10MG) SC SCH (09:48)
[2020-04-24 10:00] VITALS: BP 103/63
[2020-04-24] MEDS: SENNA 8.6 MG TAB (SENOKOT) PO SCH (20:09)
--- NOTE | 2020-04-25 04:06 | IPNPDOC ---
Text Note Date of Service The patient was seen on 04/25/20. NOTE INTERIM NOTE: Contacted by nursing staff at [id number]. Informed that "Dr. Dockery came to see the patient last evening and put in hand-written notes into the patient's chart. Dr. Dockery asked nursing staff to relay the message to the medical team that the pa anika is improving and no longer needs to be transferred to [facility]. Rather, he states she should go home with services. He said she is currently receiving Zoloft 50 mg QD, but he recommends that this dose be increased to [address] Dockery said he is out of the office until Tuesday but if there is an emergency to contact the on-call team." Will leave decision regarding discharge and medication change to primary team. VS,Fishbone, I+O VS, Fishbone, I+O Vital Signs Date Time Temp Pulse Resp B/P (MAP) Pulse Ox O2 Delivery O2 Flow Rate FiO2 04/24/20 10:00 98.3 82 18 103/63 (76) 96 Room Air I&O- Last 24 Hours up to 6 AM 04/25/20 06:00 Intake Total 900 ml Output Total 700 ml Balance 200 ml GME ATTESTATION GME ATTESTATION My faculty preceptor for this patient encounter was physically present during the encounter and was fully available. All aspects of the patient interview, exa mination, medical decision making process, and medical care plan development were reviewed and approved by the faculty preceptor. The faculty preceptor is aware and concurs with the plan as stated in the body of this note and will attest to such by his/her cosignature. JAMES WRIGHT DO Apr 25, 2020 04:05
[2020-04-25 06:00] VITALS: BP 108/63
[2020-04-25 10:00] VITALS: BP 93/57
--- NOTE | 2020-04-25 10:41 | MHIPN ---
PROGRESS NOTE DATE: 04/24/2020 She has been feeling better, mobility has improved per staff, per observations, and physical therapy has, I am told, been assisting her. She is assisted by her as well, he has been attending physical therapy sessions. He has apparently informed staff that patient is at a level that she was displaying at home, in terms of mobility. She is cooperative, there is no agitation, and is a bit more spontaneous, in terms of speech, and interactions. Affect is somewhat broader. She denies any suicidal thoughts or intents. The delusion regarding "the spirit" is still present, but she is not as preoccupied with it. She is alert, she is oriented to time, place, and person. Judgment is improved. Insight is fair. ASSESSMENT: Schizophrenia by history. Though psychosis, in terms of the delusions, remains, it is not as intense, and does not determine her nutrition as much as it used to, the interference is diminished. Mobility, with assistance, is improving. RECOMMENDATIONS: Increase the Zoloft to 75 mg daily. Continue olanzapine at the current doses, 20 mg a day in divided doses. Continue enhancing the rest of her care, including physical therapy. At the current state, she is less likely to require inpatient psychiatry, should current progress continue, and rather outpatient care, has attended [facility]. I had spoken with Patient and Family Services, Kiya Don, earlier today. Will continue following with you. I am away through 04/28/2020. If there are any questions before that, please call psychiatry generation technologist.
[2020-04-25] MEDS: SERTRALINE HCL 50 MG TAB PO SCH (10:43)
[2020-04-25] MEDS: ENOXAPARIN 40MG/0.4ML SYRINGE (J1650 PER 10MG) SC SCH (10:44)
[2020-04-25] MEDS: OLANZapine 5 MG TAB PO SCH ×2 (10:44→21:48)
[2020-04-25] MEDS: DOCUSATE SODIUM 100MG CAPSULE PO SCH ×2 (10:44→21:48)
[2020-04-25] MEDS: LORazepam 0.5 MG TAB PO SCH (10:44)
[2020-04-25] MEDS: SENNA 8.6 MG TAB (SENOKOT) PO SCH (21:48)
[2020-04-26 06:00] VITALS: BP 105/57
[2020-04-26] MEDS: DOCUSATE SODIUM 100MG CAPSULE PO SCH ×2 (09:46→20:57)
[2020-04-26] MEDS: SERTRALINE HCL 25 MG TABLET PO SCH (09:46)
[2020-04-26] MEDS: OLANZapine 5 MG TAB PO SCH ×2 (09:46→20:57)
[2020-04-26] MEDS: LORazepam 0.5 MG TAB PO SCH (09:46)
[2020-04-26] MEDS: ENOXAPARIN 40MG/0.4ML SYRINGE (J1650 PER 10MG) SC SCH (09:47)
[2020-04-26] MEDS: SENNA 8.6 MG TAB (SENOKOT) PO SCH (20:57)
[2020-04-27 06:00] VITALS: BP 115/65
[2020-04-27] MEDS: TAMSULOSIN 0.4 MG CAP PO SCH (08:58)
[2020-04-27] MEDS: LORazepam 0.5 MG TAB PO SCH (08:58)
[2020-04-27] MEDS: ENOXAPARIN 40MG/0.4ML SYRINGE (J1650 PER 10MG) SC SCH (08:58)
[2020-04-27] MEDS: SERTRALINE HCL 25 MG TABLET PO SCH (08:58)
[2020-04-27] MEDS: OLANZapine 5 MG TAB PO SCH ×2 (08:58→21:04)
[2020-04-27] MEDS: DOCUSATE SODIUM 100MG CAPSULE PO SCH ×2 (08:58→21:04)
[2020-04-27] MEDS: SENNA 8.6 MG TAB (SENOKOT) PO SCH (21:04)
[2020-04-28 06:00] VITALS: BP 111/59
[2020-04-28] MEDS: DOCUSATE SODIUM 100MG CAPSULE PO SCH ×2 (08:49→20:01)
[2020-04-28] MEDS: OLANZapine 5 MG TAB PO SCH ×2 (08:49→20:01)
[2020-04-28] MEDS: TAMSULOSIN 0.4 MG CAP PO SCH (08:49)
[2020-04-28] MEDS: SERTRALINE HCL 25 MG TABLET PO SCH (08:49)
[2020-04-28] MEDS: LORazepam 0.5 MG TAB PO SCH (08:49)
[2020-04-28] MEDS: ENOXAPARIN 40MG/0.4ML SYRINGE (J1650 PER 10MG) SC SCH (08:49)
[2020-04-28] MEDS: FINASTERIDE 5 MG TAB PO SCH (15:49)
[2020-04-28] MEDS: SENNA 8.6 MG TAB (SENOKOT) PO SCH (20:01)
[2020-04-29 06:00] VITALS: BP 120/64
[2020-04-29] MEDS: OLANZapine 5 MG TAB PO SCH ×2 (09:06→22:08)
[2020-04-29] MEDS: ENOXAPARIN 40MG/0.4ML SYRINGE (J1650 PER 10MG) SC SCH (09:06)
[2020-04-29] MEDS: SERTRALINE HCL 25 MG TABLET PO SCH (09:06)
[2020-04-29] MEDS: TAMSULOSIN 0.4 MG CAP PO SCH (09:06)
[2020-04-29] MEDS: DOCUSATE SODIUM 100MG CAPSULE PO SCH ×2 (09:07→22:09)
[2020-04-29] MEDS: LORazepam 0.5 MG TAB PO SCH (09:07)
[2020-04-29] MEDS: FINASTERIDE 5 MG TAB PO SCH (09:07)
[2020-04-29] MEDS: SENNA 8.6 MG TAB (SENOKOT) PO SCH (22:08)
[2020-04-30 06:00] VITALS: BP 101/58
[2020-04-30] MEDS: OLANZapine 5 MG TAB PO SCH ×2 (08:31→21:25)
[2020-04-30] MEDS: LORazepam 0.5 MG TAB PO SCH (08:31)
[2020-04-30] MEDS: ENOXAPARIN 40MG/0.4ML SYRINGE (J1650 PER 10MG) SC SCH (08:31)
[2020-04-30] MEDS: SERTRALINE HCL 25 MG TABLET PO SCH (08:31)
[2020-04-30] MEDS: DOCUSATE SODIUM 100MG CAPSULE PO SCH ×2 (08:31→21:25)
[2020-04-30] MEDS: TAMSULOSIN 0.4 MG CAP PO SCH (08:31)
[2020-04-30] MEDS: FINASTERIDE 5 MG TAB PO SCH (08:31)
[2020-04-30] MEDS: SENNA 8.6 MG TAB (SENOKOT) PO SCH (21:25)
[2020-04-30] MEDS: ACETAMINOPHEN TAB 650MG DOSE (2X325MG) PO PRN (21:25)
[2020-05-01 06:00] VITALS: BP 102/62
[2020-05-01] MEDS: DOCUSATE SODIUM 100MG CAPSULE PO SCH ×2 (09:06→21:14)
[2020-05-01] MEDS: TAMSULOSIN 0.4 MG CAP PO SCH (09:06)
[2020-05-01] MEDS: FINASTERIDE 5 MG TAB PO SCH (09:06)
[2020-05-01] MEDS: ENOXAPARIN 40MG/0.4ML SYRINGE (J1650 PER 10MG) SC SCH (09:06)
[2020-05-01] MEDS: LORazepam 0.5 MG TAB PO SCH (09:06)
[2020-05-01] MEDS: SERTRALINE HCL 25 MG TABLET PO SCH (09:06)
[2020-05-01] MEDS: OLANZapine 5 MG TAB PO SCH ×2 (09:07→21:14)
--- NOTE | 2020-05-01 18:24 | CR ---
CONSULTATION DATE: 05/01/2020 REQUESTED BY: Dr. Álvarez REASON FOR CONSULTATION: Wound care recommendations. HISTORY OF PRESENT ILLNESS: A 50-year-old female admitted to the hospital with psychiatric issues, failure to thrive, and general deterioration of her health. Wound care consult on 04/07/2020 was requested. At that time the patient had a sacral coccyx stage IV pressure injury, had right and left heel deep tissue injuries, and had moisture-associated skin damage involving her left cheek from drooling from her mouth. Recommendations at that time were surgical debridement, which was successfully performed by Dr. Cherry, much appreciated, and barrier cream for her left cheek area, protective foam dressings for right and left heels with offloading with heel float boots. When seen today, the moisture-associated skin damage involving the left cheek has completely resolved, and inspection of right and left heels shows complete resolution of deep tissue injuries with no wounds present. In terms of her coccyx/sacral wound, this measures 2.3 cm x 2.2 cm with a wound depth of 2.0 cm. At the base of the wound there is no palpable exposed bone. Drainage is moderate to heavy, serosanguineous. There is no undermining appreciated and no necrotic tissue seen. Treatment for exposed bone is to remove it with a rongeur. This actually can be performed at bedside, and the area exposed is quite small. Removing the outer table of the bone allows the inner table, or cancellous portion of the bone, to stimulate granulation tissue. If this is possible, this would be the choice procedure. A wound culture would be obtained at that time, and the patient could be placed on an oral antibiotic for treatment of osteomyelitis. By definition, exposed bone is consistent with osteomyelitis, and if a portion is debrided out, this should be sent for pathological evaluation. There is no indication for MRI or CT scanning. In terms of dressings, if there is strike-through, which the nurses mention, an outer layer of Drawtex can be used so that the dressing would be alginate preferably with silver, Drawtex, and a foam dressing. If the surgeon, Dr. Cherry, wishes, he can discuss the case with me. This is not an emergency debridement.
[2020-05-01] MEDS: SENNA 8.6 MG TAB (SENOKOT) PO SCH (21:14)
[2020-05-02 06:00] VITALS: BP 100/60
[2020-05-02 08:28] LABS: BASO # 0.1 10^3/uL (0.0-0.2); BASO % 0.6 % (0.0-1.0); EOS # 0.3 10^3/uL (0.0-0.5); EOS % 2.8 % (0.0-3.0); HEMOGLOBIN 11.8 g/dl (12.0-15.5); LYMPH # 3.3 10^3/uL (1.5-5.0); LYMPH % 34.5 % (24.0-44.0); MEAN CORPUSCULAR HEMOGLOBIN 30.1 pg (27.0-33.0); MEAN CORPUSCULAR HGB CONC 31.1 g/dl (32.0-36.5); MEAN CORPUSCULAR VOLUME 96.9 fl (80.0-96.0); MONO # 0.8 10^3/uL (0.0-0.8); MONO % 8.5 % (2.0-8.0); NEUTROPHILS # 5.1 10^3/uL (1.5-8.5); NEUTROPHILS % 53.3 % (36.0-66.0); PLATELET COUNT, AUTOMATED 535 10^3/uL (150-450); RED BLOOD COUNT 3.92 10^6/uL (4.00-5.40); WHITE BLOOD COUNT 9.6 10^3/uL (4.0-10.0)
[2020-05-02] MEDS: LORazepam 0.5 MG TAB PO SCH (08:36)
[2020-05-02] MEDS: OLANZapine 5 MG TAB PO SCH ×2 (08:36→20:02)
[2020-05-02] MEDS: ENOXAPARIN 40MG/0.4ML SYRINGE (J1650 PER 10MG) SC SCH (08:36)
[2020-05-02] MEDS: FINASTERIDE 5 MG TAB PO SCH (08:36)
[2020-05-02] MEDS: TAMSULOSIN 0.4 MG CAP PO SCH (08:36)
[2020-05-02] MEDS: SERTRALINE HCL 25 MG TABLET PO SCH (08:36)
[2020-05-02] MEDS: DOCUSATE SODIUM 100MG CAPSULE PO SCH ×2 (08:36→20:02)
[2020-05-02 08:57] LABS: ALBUMIN 2.9 GM/DL (3.2-5.2); ALT/SGPT 20 U/L (12-78); BILIRUBIN,TOTAL < 0.1 MG/DL (0.2-1.0); BLOOD UREA NITROGEN 19 MG/DL (7-18); CALCIUM LEVEL 9.7 MG/DL (8.5-10.1); CARBON DIOXIDE LEVEL 32 MEQ/L (21-32); CHLORIDE LEVEL 108 MEQ/L (98-107); CREATININE FOR GFR 0.67 MG/DL (0.55-1.30); GLOMERULAR FILTRATION RATE > 60.0 (>51); GLUCOSE, FASTING 89 MG/DL (70-100); MAGNESIUM LEVEL 2.2 MG/DL (1.8-2.4); POTASSIUM SERUM 4.3 MEQ/L (3.5-5.1); SODIUM LEVEL 145 MEQ/L (136-145); TOTAL PROTEIN 7.1 GM/DL (6.4-8.2)
--- NOTE | 2020-05-02 10:09 | IPNPDOC ---
Date Seen The patient was seen on 05/01/20. Progress Note SUBJECTIVE: Patient was seen and examined at bedside this morning. She is doing well. No acute events overnight. Calcium alginate in place. She denies any chest pain, chest breath, nausea, vomiting, diarrhea. Has been pleasant and cooperative. OBJECTIVE PHYSICAL EXAMINATION: VITAL SIGNS: please see below General: NAD, comfortable, flat affect. Only yes or no. HEENT: PERRLA, EOMI, sclerae clear. 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 3 cm in diameter. No surrounding cellulitis. Wound bed has granulation tissue. Large piece of bone at base of ulcer ~1.5-2 cm deep. Serosanguinous drainage. MSK: no joint deformities, normal ROM Neuro: no focal neuro deficits Psych: calm, cooperative, AAO x 2 LABORATORY DATA, IMAGING STUDIES, MICROBIOLOGY: Please see below. CXR (05/02/20): IMPRESSION: Relatively unremarkable pelvis and bilateral hip radiographs. DVT prophylaxis ordered?: SCDs. TEDs. Clinotnnox. ASSESSMENT AND PLAN: Sacral osteomyelitis: - wound is clean, bone exposed at base - debrided by Dr. Cherry on 04/16/20 - pending re-eval by Dr. Rushing Weakness/poor oral intake - pending transfer to rehab - 1:1 feedings - PT/OT Anxiety/depression/catatonia/delusional thoughts - Dr. Dockery last saw patient on 04/24/20 - increased zoloft to 75 mg daily - olanzapine 20 mg daily in divided doses - check qtc on 05/02/20 VS, I&O, 24H, Fishbone Vital Signs/I&O Vital Signs Date Time Temp Pulse Resp B/P (MAP) Pulse Ox O2 Delivery O2 Flow Rate FiO2 05/02/20 06:00 98.9 74 18 100/60 (73) 97 Room Air I&O- Last 24 Hours up to 6 AM 05/02/20 05:59 Intake Total 2040 ml Output Total 720 ml Balance 1320 ml Laboratory Data 24H LABS Laboratory Tests 2 05/02/20 08:15: Immature Granulocyte % (Auto) 0.3, Neutrophils (%) (Auto) 53.3, Lymphocytes (%) (Auto) 34.5, Monocytes (%) (Auto) 8.5H, Eosinophils (%) (Auto) 2.8, Basophils (%) (Auto) 0.6, Neutrophils # (Auto) 5.1, Lymphocytes # (Auto) 3.3, Monocytes # (Auto) 0.8, Eosinophils # (Auto) 0.3, Basophils # (Auto) 0.1, Nucleated Red Blood Cells % (auto) 0.0, Anion Gap 5L, Glomerular Filtration Rate > 60.0, Calcium Level 9.7, Magnesium Level 2.2, Total Bilirubin < 0.1L, Aspartate Amino Transf (AST/SGOT) 13, Alanine Aminotransferase (ALT/SGPT) 20, Alkaline Phosphatase 176H, Total Protein 7.1, Albumin 2.9L, Albumin/Globulin Ratio 0.7L CBC/BMP Laboratory Tests 05/02/20 08:15 DEACON MONTANO MD May 02, 2020 10:09
[2020-05-02 12:01] LABS: ERYTHROCYTE SEDIMENTATION RATE 75 mm/hr (0-30)
--- NOTE | 2020-05-02 13:54 | REP ---
INDICATION: osteomyelitis. COMPARISON: None. TECHNIQUE: AP view of the pelvis with neutral and frog-lateral views of the bilateral hips. FINDINGS: Generalized age-related changes are appreciated. No evidence for acute fracture or dislocation. No significant periosteal reaction or osseous abnormalities are identified to suggest osteomyelitis by radiographic evaluation. Surrounding soft tissues are unremarkable. IMPRESSION: Relatively unremarkable pelvis and bilateral hip radiographs. <Electronically signed by Jass Astorga > 05/02/20 [id number]
--- NOTE | 2020-05-02 14:09 | CR ---
CONSULTATION DATE: / / REASON FOR CONSULTATION: I was asked to consult by Dr. Álvarez for evaluation of sacral osteomyelitis. HISTORY OF PRESENT ILLNESS: Racheal is a 50-year-old female with a history of severe depression with psychotic feature who was admitted on March [facility] to [facility] with psychosis and severe depression. The patient had stopped taking her medications for about a couple months prior to admission. She has a history of schizophrenia. The patient was in [facility] from March 06 to March 13 and then transferred to the floors where according to the nurse she was catatonic for a long time. She then developed a sacral decubitus ulcer which progressively got worse. She was seen in consultation by Dr. Rushing who recommended debriding the bone that is exposed in the sacral area to allow for granulation tissue to grow overlying it. She had also pressure ulcers on her ear and her two ankles that have healed. She has had no fevers or chills. No nausea, vomiting, or diarrhea. PAST MEDICAL HISTORY: 1. Schizophrenia. 2. Severe depression. 3. History of delusions. PAST SURGICAL HISTORY: 1. 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 2. Bilateral cataract surgery. 3. Retinal detachment. 4. Endometriosis with ovarian cyst resection. SOCIAL HISTORY: She is . She lives with her . Denies alcohol or drug use. REVIEW OF SYSTEMS: Patient is not able to give me any history but does not state any complaints. No pain, nausea, vomiting, or diarrhea. ALLERGIES: 1. Penicillin. 2. Sulfa. 3. Metoclopramide. 4. Metronidazole. 5. Prochlorperazine causing seizures. MEDICATIONS: 1. Lorazepam 0.5 mg p.o. daily. 2. Colace 100 mg p.o. b.i.d. 3. Flomax 0.4 mg p.o. daily. 4. MiraLax one packet daily p.r.n. 5. Proscar 5 mg p.o. daily. 6. Senna two tablets p.o. at bedtime. 7. Tylenol p.r.n. 8. Zoloft 75 mg p.o. daily. 9. Olanzapine 5 mg p.o. daily and 15 mg at bedtime. LABORATORY DATA: Sodium 145, potassium 4.3, chloride 108, bicarb 32, BUN 19, creatinine 0.67, glucose 89, calcium 9.7, magnesium 2.2, AST 13, ALT 20, alkaline phosphatase 176, CRP 2, albumin 2.9. White count 9.6, hemoglobin 11.8, hematocrit 38, platelets 535, 53% neutrophils, 34% lymphocytes, 8% monocytes, ESR 75. Urine drug screen on March 06 was negative and negative for alcohol. Serology: Hepatitis A, B, and C were negative on March 12. Microbiology: Respiratory panel was negative on March 06 and . A urine culture had Klebsiella pneumoniae on March 12 resistant to ampicillin only. On March 21, urine culture had Staphylococcus simulans. Urinalysis on both March 12 and March 21 had over 50 white cells. PHYSICAL EXAMINATION: GENERAL: She is a depressed looking female, thin, looks older than stated age in no acute distress. Follows commands. Only responds yes and no but does not converse. VITAL SIGNS: Temperature 98.9, pulse 74, respirations 18, blood pressure 100/70, O2 sat 97% on room air. HEART: Normal S1 and S2. No murmurs, rubs, or gallops. LUNGS: Clear. No wheezes, rales, or rhonchi. ABDOMEN: Soft, nontender. No hepatosplenomegaly. BACK: No CVA tenderness. Sacral decubitus ulcer measures about 3 x 3 cm with no surrounding cellulitis. The bed wound shows granulation tissue, but there is a large piece of bone exposed. The depth of the wound is about 2 cm. Drainage is moderate serosanguineous. There is no undermining and no necrotic tissue. IMAGING: Chest x-ray done on March 12 showed no acute pulmonary disease. Head CT showed a right-sided focal ventriculostomy catheter remains in place, unchanged from 2007. No evidence of hydrocephalus. IMPRESSION: This is a 50-year-old female with a history of schizophrenia and severe depression with psychosis who has been hospitalized for the past two months. Has developed a sacral decubitus ulcer with secondary sacrococcygeal osteomyelitis. Patient's wound bed is clean, but last week according to nurses there was significant amount of greenish discharge that had improved since using alginate and Drawtex dressings. Her ESR is 75. CRP is 2. The patient has osteomyelitis as she does have exposed bone. There are no cultures that have been sent. Dr. Cherry and Dr. Rushing are consulted on the case. PLAN: A piece of bone tissue was broke with a pair of scissors and sent for cultures by myself, and a wound culture was also obtained after cleaning the wound. Patient does not have too much antibiotic exposure during this hospitalization. She received four days of p.o. levofloxacin for a urinary tract infection and five days of p.o. doxycycline for a Staphylococcal urinary tract infection. Would suggest using levofloxacin 750 mg p.o. daily for one month. Cultures have been obtained. Follow up on results especially of the bone to see if that is appropriate coverage. She is allergic to many medications. Therefore, there is a limited choice of antibiotics. Dr. Rushing has recommended trimming the bone down to allow for dressing to promote healing. Patient will be discharged to a [facility] next week and should follow up with Dr. Rushing for further wound care. Please obtain a CBC, CMP, ESR, and CRP weekly while patient is on p.o. levofloxacin.
[2020-05-02] MEDS: LevoFLOXacin 750 MG TABLET PO SCH (14:13)
[2020-05-02] MEDS: ACETAMINOPHEN TAB 650MG DOSE (2X325MG) PO PRN (14:13)
[2020-05-02] MEDS: LACTOBACILLUS ACIDOPHILUS CAP (BACID) PO SCH ×2 (14:14→17:27)
--- NOTE | 2020-05-02 15:03 | IPNPDOC ---
Date Seen The patient was seen on 05/02/20. Progress Note SUBJECTIVE: Mrs. Shoemaker is a 50-year-old female with a history of severe depression with psychotic features. She is admitted to mental [facility] from dinner. and then admitted to medical floor after she had developed a catatonic state with reduced by mouth intake for prolonged period of time. Patient is currently being managed for sacral decubitus ulcer by Dr. Rushing as well as Dr. Figueroa. She had undergone a debridement last week. She was evaluated by Dr. Rushing had recommended treatment for osteomyelitis as well as a bone biopsy. Discussed with Dr. Figueroa food does not perform discussions or procedures. Recommended follow up with Dr. Rushing in the clinic as outpatient. I consulted Dr. Abebe for ID evaluation. Patient was seen and examined at bedside this morning. She is doing well. No acute events overnight. Her wound seems to be free of cerumen post infection. Calcium alginate in place. She denies any chest pain, chest breath, nausea, vomiting, diarrhea. Has been pleasant and cooperative. OBJECTIVE PHYSICAL EXAMINATION: VITAL SIGNS: please see below General: NAD, comfortable, flat affect. Only yes or no. HEENT: PERRLA, EOMI, sclerae clear. 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 3 cm in diameter. No surrounding cellulitis. Wound bed has granulation tissue. Large piece of bone at base of ulcer ~1.5-2 cm deep. Serosanguinous drainage. MSK: no joint deformities, normal ROM Neuro: no focal neuro deficits Psych: calm, cooperative, AAO x 2 LABORATORY DATA, IMAGING STUDIES, MICROBIOLOGY: Please see below. CXR (05/02/20): IMPRESSION: Relatively unremarkable pelvis and bilateral hip radiographs. DVT prophylaxis ordered?: SCDs. TEDs. Lovnox. ASSESSMENT AND PLAN: Sacral osteomyelitis: - Reviewed Dr. Rushing's consult, recommended bone cultures, and removal of small piece of bone to stimulate granulation tissue, as well as to start a course of oral antibiotics for treatment of osteomyelitis. - I discussed with Dr. Cherry, this procedure should be deferred to wound care clinic. - ID consult placed for Dr. Goddard. - Hip XR was obtained - Piece of bone tissue was broken off. The parents scissors sent for bone culture. Wound culture was also obtained. - Discussed with Dr. Goddard who recommended using levofloxacin 750 mg by mouth daily for 30 days. - Patient will follow up in clinic for final, Finn bone and wound cultures. - Limited choice of antibiotics due to patient's extensive allergy history. - She'll be referred to wound care clinic for follow-up. - Per Dr. Goddard's recommendation is important to obtain a CBC, CMP, ESR and CRP weekly. I'll the patient is receiving by mouth levofloxacin. Weakness/poor oral intake - pending transfer to rehab - 1:1 feedings - PT/OT Anxiety/depression/catatonia/delusional thoughts - Dr. Nahed gonzalez saw patient on 04/24/20 - increased zoloft to 75 mg daily - olanzapine 20 mg daily in divided doses - check qtc on 05/02/20 VS, I&O, 24H, Fishbone Vital Signs/I&O Vital Signs Date Time Temp Pulse Resp B/P (MAP) Pulse Ox O2 Delivery O2 Flow Rate FiO2 05/02/20 06:00 98.9 74 18 100/60 (73) 97 Room Air I&O- Last 24 Hours up to 6 AM 05/02/20 06:00 Intake Total 2040 ml Output Total 600 ml Balance 1440 ml Laboratory Data 24H LABS Laboratory Tests 2 05/02/20 08:15: Immature Granulocyte % (Auto) 0.3, Neutrophils (%) (Auto) 53.3, Lymphocytes (%) (Auto) 34.5, Monocytes (%) (Auto) 8.5H, Eosinophils (%) (Auto) 2.8, Basophils (%) (Auto) 0.6, Neutrophils # (Auto) 5.1, Lymphocytes # (Auto) 3.3, Monocytes # (Auto) 0.8, Eosinophils # (Auto) 0.3, Basophils # (Auto) 0.1, Nucleated Red Blood Cells % (auto) 0.0, Erythrocyte Sedimentation Rate 75H, Anion Gap 5L, Glomerular Filtration Rate > 60.0, Calcium Level 9.7, Magnesium Level 2.2, Total Bilirubin < 0.1L, Aspartate Amino Transf (AST/SGOT) 13, Alanine Aminotransferase (ALT/SGPT) 20, Alkaline Phosphatase 176H, C-Reactive Protein, Quantitative 2.00H, Total Protein 7.1, Albumin 2.9L, Albumin/Globulin Ratio 0.7L CBC/BMP Laboratory Tests 05/02/20 08:15 Microbiology Microbiology 05/02/20 Gram Stain - Final, Resulted 05/02/20 Bacterial Culture, Resulted Pending 05/02/20 Gram Stain - Final, Resulted 05/02/20 Wound Culture, Resulted Pending DEACON MONTANO MD May 02, 2020 15:03
[2020-05-02] MEDS: SENNA 8.6 MG TAB (SENOKOT) PO SCH (20:02)
[2020-05-03] MEDS: LevoFLOXacin 750 MG TABLET PO SCH (05:04)
[2020-05-03 06:00] VITALS: BP 107/73
[2020-05-03] MEDS: DOCUSATE SODIUM 100MG CAPSULE PO SCH ×2 (08:49→21:05)
[2020-05-03] MEDS: TAMSULOSIN 0.4 MG CAP PO SCH (08:49)
[2020-05-03] MEDS: LORazepam 0.5 MG TAB PO SCH (08:49)
[2020-05-03] MEDS: FINASTERIDE 5 MG TAB PO SCH (08:50)
[2020-05-03] MEDS: LACTOBACILLUS ACIDOPHILUS CAP (BACID) PO SCH ×2 (08:50→18:14)
[2020-05-03] MEDS: OLANZapine 5 MG TAB PO SCH ×2 (08:50→21:04)
[2020-05-03] MEDS: ENOXAPARIN 40MG/0.4ML SYRINGE (J1650 PER 10MG) SC SCH (08:50)
[2020-05-03] MEDS: SERTRALINE HCL 25 MG TABLET PO SCH (08:50)
[2020-05-03] MEDS: SENNA 8.6 MG TAB (SENOKOT) PO SCH (21:05)
[2020-05-04] MEDS: LevoFLOXacin 750 MG TABLET PO SCH (05:50)
[2020-05-04 06:00] VITALS: BP 110/51
[2020-05-04] MEDS: ENOXAPARIN 40MG/0.4ML SYRINGE (J1650 PER 10MG) SC SCH (08:48)
[2020-05-04] MEDS: OLANZapine 5 MG TAB PO SCH ×2 (08:49→20:31)
[2020-05-04] MEDS: LACTOBACILLUS ACIDOPHILUS CAP (BACID) PO SCH ×2 (08:49→17:08)
[2020-05-04] MEDS: DOCUSATE SODIUM 100MG CAPSULE PO SCH ×2 (08:49→20:31)
[2020-05-04] MEDS: FINASTERIDE 5 MG TAB PO SCH (08:49)
[2020-05-04] MEDS: TAMSULOSIN 0.4 MG CAP PO SCH (08:49)
[2020-05-04] MEDS: LORazepam 0.5 MG TAB PO SCH (08:49)
[2020-05-04] MEDS: SERTRALINE HCL 25 MG TABLET PO SCH (08:49)
[2020-05-04] MEDS: SENNA 8.6 MG TAB (SENOKOT) PO SCH (20:31)
[2020-05-05] MEDS: LevoFLOXacin 750 MG TABLET PO SCH (05:42)
[2020-05-05 06:00] VITALS: BP 114/57
[2020-05-05 07:53] LABS: BASO % 0.5 % (0.0-1.0); EOS # 0.2 10^3/uL (0.0-0.5); EOS % 3.1 % (0.0-3.0); HEMATOCRIT 34.2 % (36.0-47.0); HEMOGLOBIN 10.6 g/dl (12.0-15.5); LYMPH # 2.6 10^3/uL (1.5-5.0); LYMPH % 35.3 % (24.0-44.0); MEAN CORPUSCULAR HEMOGLOBIN 30.1 pg (27.0-33.0); MEAN CORPUSCULAR VOLUME 97.2 fl (80.0-96.0); MONO # 0.8 10^3/uL (0.0-0.8); MONO % 10.6 % (2.0-8.0); NEUTROPHILS # 3.7 10^3/uL (1.5-8.5); NEUTROPHILS % 50.1 % (36.0-66.0); PLATELET COUNT, AUTOMATED 357 10^3/uL (150-450); RED BLOOD COUNT 3.52 10^6/uL (4.00-5.40); WHITE BLOOD COUNT 7.4 10^3/uL (4.0-10.0)
[2020-05-05] MEDS: FINASTERIDE 5 MG TAB PO SCH (08:10)
[2020-05-05] MEDS: ENOXAPARIN 40MG/0.4ML SYRINGE (J1650 PER 10MG) SC SCH (08:11)
[2020-05-05] MEDS: LACTOBACILLUS ACIDOPHILUS CAP (BACID) PO SCH (08:11)
[2020-05-05] MEDS: OLANZapine 5 MG TAB PO SCH (08:11)
[2020-05-05] MEDS: TAMSULOSIN 0.4 MG CAP PO SCH (08:12)
[2020-05-05] MEDS: DOCUSATE SODIUM 100MG CAPSULE PO SCH (08:12)
[2020-05-05] MEDS: SERTRALINE HCL 25 MG TABLET PO SCH (08:12)
[2020-05-05 08:18] LABS: ALBUMIN 2.7 GM/DL (3.2-5.2); ALT/SGPT 20 U/L (12-78); BILIRUBIN,TOTAL 0.1 MG/DL (0.2-1.0); BLOOD UREA NITROGEN 19 MG/DL (7-18); C REACTIVE PROTEIN QUANTITATIV 1.33 MG/DL (0.00-0.30); CALCIUM LEVEL 8.9 MG/DL (8.5-10.1); CARBON DIOXIDE LEVEL 34 MEQ/L (21-32); CHLORIDE LEVEL 109 MEQ/L (98-107); CREATININE FOR GFR 0.68 MG/DL (0.55-1.30); GLOMERULAR FILTRATION RATE > 60.0 (>51); GLUCOSE, FASTING 84 MG/DL (70-100); SODIUM LEVEL 145 MEQ/L (136-145); TOTAL PROTEIN 6.3 GM/DL (6.4-8.2)
[2020-05-05 08:19] LABS: ERYTHROCYTE SEDIMENTATION RATE 63 mm/hr (0-30)
[2020-05-05] MEDS: LORazepam 0.5 MG TAB PO SCH (08:31)
[2020-05-05] MEDS ORDERED: FLOM0.4C39 PO (12:00)
[2020-05-05] MEDS ORDERED: LEVO750T13 PO (12:00)
[2020-05-05] MEDS ORDERED: ACET1TAB55 PO (12:00)
[2020-05-05] MEDS ORDERED: FINA5TAB2 PO (12:00)
[2020-05-05] MEDS ORDERED: OLAN5TAB PO ×2 (12:00)
[2020-05-05] MEDS ORDERED: SERT25TA21 PO (12:00)
[2020-05-05] MEDS ORDERED: RISATAB3 PO (12:00)
[2020-05-05] MEDS ORDERED: ATIV1TAB10 PO (12:00)
[2020-05-05] MEDS ORDERED: SENN18TA PO (12:00)
--- NOTE | 2020-05-05 12:07 | DS.PDOC ---
Discharge Summary General Date of Admission Mar 13, 2020 at 14:18 Date of Discharge 05/05/20 Discharge Summary PROCEDURES PERFORMED DURING STAY: [None]. Stage IV sacral ulcer debridement by Dr. Cherry (04/18/20). INDICATION FOR PROCEDURE: The patient is a 49-year-old female currently with a sacral decubitus ulcer. Recommendation was to proceed with bedside debridement. Risks and benefits of procedure not limited to, but included infection, damage to surrounding structures, need for further surgery were discussed in detail with the patient and informed consent was obtained and procedure was planned. DESCRIPTION OF PROCEDURE: The patient was laid in the left lateral decubitus position at the bedside. The presacral area was examined using a sharp curette, as well as a 15 blade scalpel. I was able to dissect through the skin and subcutaneous tissue, presacral fascia, through the muscle using the scalpel, debriding all of the necrotic tissue. The presacral fascia was mostly intact. There was exposed bone. The wound measured approximately 3 x 4 cm in diameter and about 2 cm in depth. Once all of the necrotic tissue was dbrided and all the wound edges were nice and health and bleeding tissue, I packed the wound with 4 x 4 and covered it with some more gauze and then rolled her back on to her back to keep pressure on the wound. She tolerated the procedure well. No pain. After a few hours, we will remove the packing and place her back on the normal wound care dressing that she had on to begin ADMITTING DIAGNOSES: Weakness Reduced PO intake Urinary Tract Infection Elevated AST Anxiety/depression/delusional thoughts DISCHARGE DIAGNOSES: Weakness Reduced PO intake Urinary Tract Infection Elevated AST Anxiety/depression/delusional thoughts COMPLICATIONS/CHIEF COMPLAINT: UTI. HISTORY OF PRESENT ILLNESS: Patient is a 49-year-old female who presented to [facility] after she had reported worsening feelings. Patient reported that she has the spirit within her. Patient was admitted to the inpatient mental health unit under the care of psychiatry on 03/06/2020. Hospital service was initially consulted for medical screening evaluation on 03/07/2020. Throughout the duration of patients stay at the hospital. She has had minimal activity and minimal intake of food. Hospital service was consulted again after patient was mostly bedbound and then again on 03/14 to transfer patient to medical floor for what was reported as dehydration. Was called by psychiatry again to transfer the patient to medical surgical floor for rehydration. Currently patient does not appear to be significant change from yesterday. She denies any chest pain, shortness breath, palpitations, nausea, vomiting, abdominal pain, diarrhea, or urinary discomfort. Patient has not experience any fevers based on documentation. I have discussed the case with nurse practitioner for psychiatry. They will continue to follow patient while in the acute medical side. HOSPITAL COURSE: Sacral osteomyelitis: - Reviewed Dr. Rushing's consult, recommended bone cultures, and removal of small piece of bone to stimulate granulation tissue, as well as to start a course of oral antibiotics for treatment of osteomyelitis. - I discussed with Dr. Cherry, this procedure should be deferred to wound care clinic. - ID consult placed for Dr. Goddard. - Hip XR was obtained - Piece of bone tissue was broken off. The parents scissors sent for bone culture. Wound culture was also obtained. - Discussed with Dr. Goddard who recommended using levofloxacin 750 mg by mouth daily for 30 days. - Patient will follow up in clinic for yazan bone and wound cultures. - Limited choice of antibiotics due to patient's extensive allergy history. - She'll be referred to wound care clinic for follow-up. - Per Dr. Goddard's recommendation is important to obtain a CBC, CMP, ESR and CRP weekly while patient is receiving by mouth levofloxacin. Weakness/poor oral intake - pending transfer to rehab - PT/OT: recommending rehab, to use walker, one assist Anxiety/depression/catatonia/delusional thoughts - Dr. Dockery last saw patient on 04/24/20 - delusions have been limiting her feeding and ambulation less - increased zoloft to 75 mg daily - olanzapine 20 mg daily in divided doses - EKG performed on 05/05/20 - QTc 425. DISCHARGE MEDICATIONS: Please see below. ALLERGIES: Please see below. PHYSICAL EXAMINATION ON DISCHARGE: VITAL SIGNS: please see below General: NAD, comfortable, flat affect. Only yes or no. HEENT: PERRLA, EOMI, sclerae clear. 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 3 cm in diameter. No surrounding cellulitis. Wound bed has granulation tissue. Large piece of bone at base of ulcer ~1.5-2 cm deep. Serosanguinous drainage. MSK: no joint deformities, normal ROM Neuro: no focal neuro deficits Psych: calm, cooperative, AAO x 2 LABORATORY DATA: Please see below. IMAGING: Pelvis XR with bilateral hips (05/02/20): FINDINGS: Generalized age-related changes are appreciated. No evidence for acute fracture or dislocation. No significant periosteal reaction or osseous abnormalities are identified to suggest osteomyelitis by radiographic evaluation. Surrounding soft tissues are unremarkable. IMPRESSION: Relatively unremarkable pelvis and bilateral hip radiographs. PROGNOSIS: fair ACTIVITY: [As tolerated]. DIET: as tolerated DISCHARGE PLAN: transfer to [facility]. Complete 30 total days of levaquin therapy for sacral osteomyelitis. To follow up with Dr. Rushing within 1 week. Final bone cultures pending. Referral to ID given, to follow up within [address] weeks[address] Winston catheter in place due to urinary retention, urology referral given. DISPOSITION: . DISCHARGE INSTRUCTIONS: . Please follow-up with your primary care doctor within 3-5 days . Please follow-up with Dr. Rushing (wound care) within 1 week. Follow up final wound and bone cultures Please taking medications as prescribed. Take 27 additional days of levaquin. Please check CBC, CMP, ESR, CRP once per week while on levaquind. Check QTc weekly if possible. Last QTc on 05/05/20 - 425. . If you develop bleeding, chest pain, shortness of breath, seizures, nausea, fevers, or otherwise worsening of your symptoms, please call 911 or return to the nearest emergency room ITEMS TO FOLLOWUP ON ON OUTPATIENT: 1. . DISCHARGE CONDITION: [Stable]. TIME SPENT ON DISCHARGE: 35 minutes Vital Signs/I&Os Vital Signs Date Time Temp Pulse Resp B/P (MAP) Pulse Ox O2 Delivery O2 Flow Rate FiO2 05/05/20 06:00 98.0 81 16 114/57 (76) 100 05/03/20 06:00 Room Air I&O- Last 24 Hours up to 6 AM 05/05/20 06:00 Intake Total 1600 ml Output Total 950 ml Balance 650 ml Laboratory Data Labs 24H Laboratory Tests 2 05/05/20 07:32: Immature Granulocyte % (Auto) 0.4, Neutrophils (%) (Auto) 50.1, Lymphocytes (%) (Auto) 35.3, Monocytes (%) (Auto) 10.6H, Eosinophils (%) (Auto) 3.1H, Basophils (%) (Auto) 0.5, Neutrophils # (Auto) 3.7, Lymphocytes # (Auto) 2.6, Monocytes # (Auto) 0.8, Eosinophils # (Auto) 0.2, Basophils # (Auto) 0.0, Nucleated Red Blood Cells % (auto) 0.0, Erythrocyte Sedimentation Rate 63H, Anion Gap 2L, Glomerular Filtration Rate > 60.0, Calcium Level 8.9, Total Bilirubin 0.1L, Aspartate Amino Transf (AST/SGOT) 14, Alanine Aminotransferase (ALT/SGPT) 20, Alkaline Phosphatase 153H, C-Reactive Protein, Quantitative 1.33H, Total Protein 6.3L, Albumin 2.7L, Albumin/Globulin Ratio 0.8L 05/05/20 09:33: Coronavirus (COVID-19)(PCR) NEGATIVE CBC/BMP Laboratory Tests 05/05/20 07:32 Microbiology Microbiology 05/02/20 Gram Stain - Final, Resulted 05/02/20 Bacterial Culture, Resulted Pending 05/02/20 Gram Stain - Final, Complete 05/02/20 Wound Culture - Final, Complete Corynebacterium Species Discharge Medications Scheduled Finasteride (Finasteride) 5 Mg Tablet, 5 MG PO DAILY L.acidoph/L.bulg/B.bif/S.therm (Joyce-Bid Caplet) 1 Each Tablet, 1 EA PO BIDWM Levofloxacin (Levofloxacin) 750 Mg Tablet, 750 MG PO DAILY@06 Lorazepam (Ativan) 0.5 Mg Tablet, 0.5 MG PO DAILY Olanzapine (Olanzapine) 5 Mg Tablet, 5 MG PO DAILY Olanzapine (Olanzapine) 5 Mg Tablet, 15 MG PO QHS Sertraline HCl (Sertraline HCl) 25 Mg Tablet, 75 MG PO DAILY Tamsulosin HCl (Flomax) 0.4 Mg Capsule, 0.4 MG PO DAILY Scheduled PRN Acetaminophen (Acetaminophen) 325 Mg Tablet, 650 MG PO Q4H PRN for PAIN OR FEVER Albuterol Sulfate (Proair Hfa) 8.5 Gm Hfa.aer.ad, 2 PUFF INH Q4H PRN for SHORTNESS OF BREATH, (Reported) Senna (Senna Lax) 8.6 Mg Tablet, 2 TAB PO QHS PRN for CONSTIPATION Allergies Coded Allergies: metronidazole (Verified Allergy, Severe, tongue swelling, throat tightness, 10/05/18) Sulfa (Sulfonamide Antibiotics) (Verified Allergy, Intermediate, hives, 10/05/18) Contrast Media (Verified Allergy, Unknown, 05/21/07) Penicillins (Verified Allergy, Unknown, 10/05/18) metoclopramide (Verified Allergy, Unknown, 10/05/18) prochlorperazine (Verified Allergy, Unknown, 10/05/18) DEACON MONTANO MD May 05, 2020 12:07
--- NOTE | 2020-05-05 14:50 | ECGEPIP ---
[facility] Test Date: 2020-05-05 Pat Name: CAREN CURRY Department: Room: [place] [address] Gender: Female Collaborative Teacher: margaret : 1970 Requested By: DEACON MONTANO Order Number: [id number] Reading MD: Magali Lucas Measurements Intervals [place] Rate: 71 P: 100 AR: 202 QRS: 51 QRSD: 80 T: 56 QT: 392 QTc: 425 Interpretive Statements Normal sinus rhythm 1ST DEGREE BLOCK (NEW} POSSIBLE MILD AXIS SHIFT TO RIGHT EARLY REPOAR LESS PROMINENT SEPTAL T WAVE ABN NEW C/W09/05/20 Electronically Signed on 05-05-2020 14:49:59 EST by Magali Lucas
== END 2020-05-05 14:52 | DRG 850 ==
LOC: M MSPAV 14:18
PROVIDERS: ADMIT Internal Medicine; ATTEND Family Medicine
PROC: 0KBF0ZZ Excision of Right Trunk Muscle, Open Approach (ICD-10-PCS; principal; 2020-04-16)
DX: R53.1 Weakness (principal); L89.154 Pressure ulcer of sacral region, stage 4; F20.2 Catatonic schizophrenia; M46.28 Osteomyelitis of vertebra, sacral and sacrococcygeal region; L89.626 Pressure-induced deep tissue damage of left heel; L89.616 Pressure-induced deep tissue damage of right heel; E86.0 Dehydration; N39.0 Urinary tract infection, site not specified; F41.9 Anxiety disorder, unspecified; F32.9 Major depressive disorder, single episode, unspecified; R63.0 Anorexia; Z79.899 Other long term (current) drug therapy; Z88.2 Allergy status to sulfonamides; Z91.041 Radiographic dye allergy status; Z88.0 Allergy status to penicillin; Z88.8 Allergy status to other drugs, medicaments and biological substances; R62.7 Adult failure to thrive; L98.491 Non-pressure chronic ulcer of skin of other sites limited to breakdown of skin; Z91.14 Patient's other noncompliance with medication regimen